=== PATIENT | female | born 1950 | race Caucasian/White ===

== ENCOUNTER 2019-03-19 11:09 | Inpatient (IN) | payer OTHER, MEDICARE ==
[2019-03-19] MEDS ORDERED: SODIUM CHLORIDE IV ONE (11:40)
--- NOTE | 2019-03-19 11:49 | PDOC ---
History of Present Illness - General Chief Complaint: Pain Stated Complaint: ABD PAIN Time Seen by Provider: 03/19/19 11:40 History Source: Patient Exam Limitations: No Limitations - History of Present Illness Initial Comments: 69 yo F w a pmh of HTN, HCL, lower extremity paraplegia presents to the ER because her stage 4 ulcer has been hurting her very much and is getting worse. The patient reports that she fell down from the stairs last year in [facility] and has ever since been paralyzed from the waste down. She has a chronic stage 4 ulcer which she receives treatment for but the nurse at her wound care center stated that it started looking worse had abnormal discoloration and said she should come to the hospital to get a professional doctor to evaluate her ulcer. She denies systemic symptoms such as fevers, chills, sweats, or fatigue. She states she feels like her heart is beating faster than normal but otherwise has no complaints. PCP: Law Jeter PSH: Spinal surgery at [facility] Sep 2018 Allergies: NKA, NKDA Social Hx: Denies smoking, drinking, or other substance usage. Past History - Past Medical History Allergies/Adverse Reactions: Allergies Allergy/AdvReac Type Severity Reaction Status Date / Time No Known Allergies Allergy Verified 03/19/19 11:31 Home Medications: Ambulatory Orders Aspirin [ASA -] 325 mg PO DAILY 03/19/19 Atorvastatin Ca [Lipitor] 20 mg PO HS 03/19/19 Baclofen [Lioresal -] 10 mg PO TID 03/19/19 Metoprolol Succinate [Toprol Xl] 25 mg PO DAILY 03/19/19 Multivitamin [Multiple Vitamins] 1 each PO DAILY 03/19/19 Tizanidine HCl [Zanaflex] 0.5 mg PO HS 03/19/19 COPD: No HTN: Yes Hypercholesterolemia: Yes - Surgical History Neurologic Surgery: Yes (vertebrel fx with repair 2017) - Suicide/Smoking/Psychosocial Hx Smoking History: Former smoker Have you smoked in the past 12 months: No Information on smoking cessation initiated: No Hx Alcohol Use: No Drug/Substance Use Hx: No Review of Systems - Review of Systems Able to Perform ROS?: Yes Comments:: CONSTITUTIONAL: Absent: fever, no chills, no fatigue EYES: Absent: visual changes ENT: Absent: ear pain, no sore throat CARDIOVASCULAR: Absent: chest pain, no palpitations RESPIRATORY: Absent: cough, no SOB GI: Absent: abdominal pain, no nausea, no vomiting, no constipation, no diarrhea GENITOURINARY: Absent: dysuria, no frequency, no hematuria MUSKULOSKELETAL: Present: Back pain Absent: no arthralgia, no myalgia SKIN: Absent: rash NEURO: Absent: headache *Physical Exam - Vital Signs Last Vital Signs Temp Pulse Resp BP Pulse Ox 97.8 F 134 H 20 143/76 98 03/19/19 11:19 03/19/19 11:19 03/19/19 11:19 03/19/19 11:03/19/19 11:19 - Physical Exam Comments: SACRAL ULCER: 6x8, there are gangrenous foci, the bone is involved, suggestive of osteo. GENERAL: Well-appearing, well-nourished. Mild distress. HEENT: Normocephalic, atraumatic. PERRL, EOM intact. CARDIOVASCULAR: Tachycardic rate. Normal S1, S2. Regular rhythm. PULMONARY: No evidence of respiratory distress. Lungs clear to auscultation bilaterally. No wheezing, rales or rhonchi. ABDOMEN: Soft, non-distended, non-tender. EXTREMITIES: Normal ROM in upper extremities. Lower extremities are paralyzed. SKIN: Warm, dry. NEUROLOGICAL: No focal neurological deficits other than lower leg paraplegia ED Treatment Course - LABORATORY CBC & Chemistry Diagram: 03/19/19 12:00 03/19/19 12:00 - RADIOLOGY Radiology Studies Ordered: Category Date Time Status CHEST X-RAY PORTABLE* [RAD] Stat Radiology 03/19/19 11:41 Ordered Medical Decision Making - Medical Decision Making 69 yo F w a pmh of HTN, HCL, lower extremity paraplegia presents to the ER because her stage 4 ulcer has been hurting her very much and is getting worse. The patient reports that she fell down from the stairs last year in [facility] and has ever since been paralyzed from the waste down. She has a chronic stage 4 ulcer which she receives treatment for but the nurse at her wound care center stated that it started looking worse had abnormal discoloration and said she should come to the hospital to get a professional doctor to evaluate her ulcer. She denies systemic symptoms such as fevers, chills, sweats, or fatigue. She states she feels like her heart is beating faster than normal but otherwise has no complaints. VS: Tachycardic, hypotensive DDx IBNLT: Sepsis from sacral ulcer Plan: Sepctic workup, IV hydration, Pelvis CT, Abx, Admit vascular consult. - Patient's Urine shows UTI - Patient is getting Vanc/Zosyn Pelvis CT shows osteomyelitis - Will admit to hospital for further care. *DC/Admit/Observation/Transfer Diagnosis at time of Disposition: Sacral decubitus ulcer, stage IV, UTI (urinary tract infection), Osteomyelitis - Discharge Dispostion Condition at time of disposition: Stable Decision to Admit order: Yes - Referrals Referrals: Law Jeter [Primary Care Provider] - - Patient Instructions - Post Discharge Activity
[2019-03-19] MEDS ORDERED: VANCOMYCIN 1,000 MG in DEXTROSE 5%-WATER - 250 ML IVPB ONE (12:03)
[2019-03-19] MEDS ORDERED: PIPERACILLIN/TAZOB 4.5 GM 4.5 GM in DEXTROSE 5%-WATER 100 ML IVPB ONE (12:04)
[2019-03-19 12:08] LABS: BASO % 0.9 % (0-2.0); EOS % 3.3 % (0-4.5); HEMATOCRIT 30.8 % (32.4-45.2); HEMOGLOBIN 9.9 GM/dL (10.7-15.3); LYMPH % 13.6 % (8-40); MCH 25.2 pg (25.7-33.7); MCHC 32.1 g/dl (32.0-36.0); MEAN CELL VOLUME 78.3 fl (80-96); MEAN PLT VOLUME 7.8 fl (7.5-11.1); MONO % 8.9 % (3.8-10.2); NEUT % 73.3 % (42.8-82.8); PLATELET COUNT 576 K/MM3 (134-434); RBC 3.93 M/mm3 (3.60-5.2); RDW 16.7 % (11.6-15.6); WHITE BLOOD COUNT 13.4 K/mm3 (4.0-10.0)
[2019-03-19] MEDS ORDERED: VANCOMYCIN 1 GRAM (PRE-DOCKED) 1,000 MG/250 ML BAG IVPB ONE (12:08)
[2019-03-19] MEDS ORDERED: PIPERACILLIN/TAZOB 4.5 GM 4.5 GM/100 ML BAG IVPB ONE (12:08)
[2019-03-19 12:20] LABS: EPI CELLS 5.5 /HPF (0-5/HPF); URINE APPEARANCE TURBID; URINE BACTERIA >9000 /hpf (NEGATIVE); URINE BILIRUBIN NEGATIVE (NEGATIVE); URINE CASTS 40 /lpf (0-8); URINE COLOR YELLOW; URINE GLUCOSE (UA) NEGATIVE (NEGATIVE); URINE KETONE NEGATIVE (NEGATIVE); URINE LEUK ESTERASE 3+ (NEGATIVE); URINE NITRITE POSITIVE (NEGATIVE); URINE PROTEIN 2+ (NEGATIVE); URINE WBC 1292 /hpf (0-5)
[2019-03-19 12:28] LABS: INR 1.17 (0.83-1.09); PROTHROMBIN TIME (PATIENT) 13.8 SEC (9.7-13.0)
[2019-03-19 12:35] LABS: ALBUMIN 2.3 g/dl (3.4-5.0); ALK PHOS 101 U/L (45-117); ANION GAP 6 MMOL/L (8-16); BILIRUBIN,TOTAL 0.4 mg/dL (0.2-1); BLOOD UREA NITROGEN 13 mg/dL (7-18); CALCIUM 9.6 mg/dL (8.5-10.1); CHLORIDE 102 mmol/L (98-107); CO2 28 mmol/L (21-32); CREATININE 0.2 mg/dL (0.55-1.3); GLUCOSE,RANDOM 101 mg/dL (74-106); POTASSIUM 3.7 mmol/L (3.5-5.1); SGOT/AST 16 U/L (15-37); SGPT/ALT 20 U/L (13-61); SODIUM 136 mmol/L (136-145)
[2019-03-19 12:47] LABS: URINE RBC 5 /hpf (0-4)
[2019-03-19 12:48] LABS: YEAST NONE SEEN (NEGATIVE)
--- NOTE | 2019-03-19 14:16 | PDOC ---
Documentation entered by Sukhdeep Vyas SCRIBE, acting as scribe for Rosario Mueller MD. Rosario Mueller MD: This documentation has been prepared by the Asael luna Nirvannie, SCRIBE, under my direction and personally reviewed by me in its entirety. I confirm that the documentation accurately reflects all work, treatment, procedures, and medical decision making performed by me. Attending Attestation - Resident Resident Name: Grzegorz Montague - ED Attending Attestation I have performed the following: I have examined & evaluated the patient, The case was reviewed & discussed with the resident, I agree w/resident's findings & plan - HPI HPI: 03/19/19 13:36 The patient is a 69 year old female, with a significant past medical history of HTN, HLD, lower extremity paraplegia, who presents to the emergency department with, a worsening sacral ulcer. As per patient and son at bedside, her wound has been treated at 3 facilities since Sep 2018. She notes significant pain to her ulcer, prompting her arrival to the ED. She denies any fevers, chills, chest pain, or shortness of breath. Allergies: NKDA Primary Care Physician: Dr. Jeter - Physicial Exam PE: 03/19/19 14:05 GENERAL: The patient is in no acute distress. ENT: Ears normal, nares patent, oropharynx clear without exudates. Moist mucous membranes. NECK: Normal range of motion, supple LUNGS: Breath sounds equal, clear to auscultation bilaterally. No wheezes, and no crackles. HEART: Irregularly irregular, tachycardiac ABDOMEN: Soft, nontender, normoactive bowel sounds. EXTREMITIES: Normal range of motion, no edema. NEUROLOGICAL: Cranial nerves II through XII grossly intact. Normal speech. No focal neurological deficits. SKIN: 03/19/19 14:16 - Medical Decision Making 03/19/19 14:07 Ms Pereira is a 69 yo F presenting for evaluation of a sacral decubitus Pt has been managed in 3 facilities for her sacral decubitus Pt being followed by a visiting nurse who has seen her wound and thinks the wound has worsened No fevers or chills EKG - Afib rate of 134 bpm, axis nml, intervals nml, no st elevation or depressions, (+) artifact 03/19/19 14:15 Laboratory Tests 03/19/19 03/19/19 03/19/19 12:00 12:00 12:00 WBC 13.4 H Hgb 9.9 L Hct 30.8 L Plt Count 576 H INR 1.17 H BUN Creatinine Troponin I Urine Blood 3+ H Urine Nitrite Positive H Ur Leukocyte Esterase 3+ H Urine WBC (Auto) 1292 Urine RBC (Auto) 5 Urine Bacteria (Auto) >9000 03/19/19 03/19/19 12:00 12:00 WBC Hgb Hct Plt Count INR BUN 13 Creatinine 0.2 L Troponin I < 0.02 Urine Blood Urine Nitrite Ur Leukocyte Esterase Urine WBC (Auto) Urine RBC (Auto) Urine Bacteria (Auto) Pt has evidence of UTI AND sacral wound Cultures sent Pt treated with Vanco and Zosyn Will admit to hospitalist service 03/19/19 14:17 CT - findings consistent with acute osteomyelitis of the lower sacrum and coccyx CXR - No acute pathology 03/19/19 14:17
--- NOTE | 2019-03-19 16:04 | HP ---
CHIEF COMPLAINT: sent by nurse for worsening sacral wound PCP: Law Jeter MD HISTORY OF PRESENT ILLNESS: Patient is a 69 year old female with a significant past medical history of hypertension, HLD, bed bound secondary to lower extremity paraplegia T6 injury s /p fall, chronic hicks and chronic sacral wound. She presents to the ER after being advised by her home care nurse that her sacral wound is worsening and now with odor and drainage. Patient also reports worsening pain of this wound. Patient has been bed bound after a traumatic fall last year. Patient denies fevers, chills, sweats, or fatigue. She states she feels like her heart is beating faster than normal but otherwise has no complaints. She denies chest pain, no shortness of breath. She states that she was diagnosed with atrial fibrillation in the past and was on blood thinners. She was then transitioned to ASA 325mg BID and has been taking this medication since. Her secretary is at [facility], but she is unsure of his name. In the ED she was noted to be with afib and RVR 150s. She will be sent to telemonitoring. ER course was notable for: (1) meets sepsis criteria (2) rapid afib with avr (3) pelvic ct with +osteo Recent Travel: PAST MEDICAL HISTORY: PAST SURGICAL HISTORY: Social History: Smoking: Alcohol: Drugs: Family History: Allergies No Known Allergies Allergy (Verified 03/19/19 11:31) HOME MEDICATIONS: Home Medications Medication Instructions Recorded Aspirin [ASA -] 325 mg PO DAILY 03/19/19 Atorvastatin Ca [Lipitor] 20 mg PO HS 03/19/19 Baclofen [Lioresal -] 10 mg PO TID 03/19/19 Metoprolol Succinate [Toprol Xl] 25 mg PO DAILY 03/19/19 Multivitamin [Multiple Vitamins] 1 each PO DAILY 03/19/19 Tizanidine HCl [Zanaflex] 0.5 mg PO HS 03/19/19 PHYSICAL EXAMINATION Vital Signs - 24 hr 03/19/19 03/19/19 03/19/19 11:19 11:21 11:55 Temperature 97.8 F Pulse Rate 134 H Pulse Rate [ 150 H Left Radial] Respiratory 20 20 Rate Blood Pressure 143/76 Blood Pressure 121/90 [Right Arm] O2 Sat by Pulse 98 98 98 Oximetry (%) 03/19/19 03/19/19 12:49 13:19 Temperature Pulse Rate Pulse Rate [ 132 H 131 H Left Radial] Respiratory 20 20 Rate Blood Pressure Blood Pressure 126/94 112/69 [Right Arm] O2 Sat by Pulse 98 98 Oximetry (%) GENERAL: Awake, alert, and fully oriented, in no acute distress. provides a fair history, but forgetful HEAD: Normal with no signs of trauma. EYES: Pupils equal, round and reactive to light, extraocular movements intact, sclera anicteric, conjunctiva clear. No lid lag. EARS, NOSE, THROAT: Ears normal, nares patent, oropharynx clear without exudates. Moist mucous membranes. NECK: Normal range of motion, supple without lymphadenopathy, JVD, or masses. LUNGS: Breath sounds equal, clear to auscultation bilaterally. No wheezes, and no crackles. No accessory muscle use. HEART: irregular rate, afib with rvr ABDOMEN: Soft, nontender, not distended, normoactive bowel sounds MUSCULOSKELETAL: Normal range of motion at all joints. No bony deformities or tenderness. No CVA tenderness. UPPER EXTREMITIES: No clubbing. No peripheral edema. LOWER EXTREMITIES: trace edema bilaterally NEUROLOGICAL: Normal speech. Normal gait. PSYCHIATRIC: Cooperative. Good eye contact. Appropriate mood and affect. SKIN: large unsteageable sacral wound, round, mild odor, discoloration with deep tunneling. wound apx 8cm x 8cm with 4cm depth. exposed muscle and bone. Laboratory Results - last 24 hr 03/19/19 03/19/19 03/19/19 12:00 12:00 12:00 WBC 13.4 H RBC 3.93 Hgb 9.9 L Hct 30.8 L MCV 78.3 L MCH 25.2 L MCHC 32.1 RDW 16.7 H Plt Count 576 H MPV 7.8 Absolute Neuts (auto) 9.8 H Neutrophils % 73.3 Lymphocytes % 13.6 Monocytes % 8.9 Eosinophils % 3.3 Basophils % 0.9 Nucleated RBC % 0 PT with INR 13.80 H INR 1.17 H PTT (Actin FS) 37.0 H Sodium Potassium Chloride Carbon Dioxide Anion Gap BUN Creatinine Creat Clearance w eGFR Random Glucose Lactic Acid Calcium Total Bilirubin AST ALT Alkaline Phosphatase Troponin I Total Protein Albumin Urine Color Yellow Urine Appearance Turbid Urine pH 6.0 Ur Specific [place] 1.021 Urine Protein 2+ H Urine Glucose (UA) Negative Urine Ketones Negative Urine Blood 3+ H Urine Nitrite Positive H Urine Bilirubin Negative Urine Urobilinogen 1.0 Ur Leukocyte Esterase 3+ H Urine WBC (Auto) 1292 Urine RBC (Auto) 5 Urine Casts (Auto) 40 U Pathogenic Cast Auto None seen U Epithel Cells (Auto) 5.5 U Sm Round Cell (Auto) No Result Required. Urine Crystals (Auto) No Result Required. Urine Bacteria (Auto) >9000 Urine Yeast (Auto) None seen Blood Type Antibody Screen 03/19/19 03/19/19 03/19/19 12:00 12:00 12:00 WBC RBC Hgb Hct MCV MCH MCHC RDW Plt Count MPV Absolute Neuts (auto) Neutrophils % Lymphocytes % Monocytes % Eosinophils % Basophils % Nucleated RBC % PT with INR INR PTT (Actin FS) Sodium 136 Potassium 3.7 Chloride 102 Carbon Dioxide 28 Anion Gap 6 L BUN 13 Creatinine 0.2 L Creat Clearance w eGFR 351.16 Random Glucose 101 Lactic Acid Calcium 9.6 Total Bilirubin 0.4 AST 16 ALT 20 Alkaline Phosphatase 101 Troponin I < 0.02 Total Protein 6.0 L Albumin 2.3 L Urine Color Urine Appearance Urine pH Ur Specific [place] Urine Protein Urine Glucose (UA) Urine Ketones Urine Blood Urine Nitrite Urine Bilirubin Urine Urobilinogen Ur Leukocyte Esterase Urine WBC (Auto) Urine RBC (Auto) Urine Casts (Auto) U Pathogenic Cast Auto U Epithel Cells (Auto) U Sm Round Cell (Auto) Urine Crystals (Auto) Urine Bacteria (Auto) Urine Yeast (Auto) Blood Type O NEGATIVE Antibody Screen Negative 03/19/19 12:00 WBC RBC Hgb Hct MCV MCH MCHC RDW Plt Count MPV Absolute Neuts (auto) Neutrophils % Lymphocytes % Monocytes % Eosinophils % Basophils % Nucleated RBC % PT with INR INR PTT (Actin FS) Sodium Potassium Chloride Carbon Dioxide Anion Gap BUN Creatinine Creat Clearance w eGFR Random Glucose Lactic Acid 0.9 Calcium Total Bilirubin AST ALT Alkaline Phosphatase Troponin I Total Protein Albumin Urine Color Urine Appearance Urine pH Ur Specific [place] Urine Protein Urine Glucose (UA) Urine Ketones Urine Blood Urine Nitrite Urine Bilirubin Urine Urobilinogen Ur Leukocyte Esterase Urine WBC (Auto) Urine RBC (Auto) Urine Casts (Auto) U Pathogenic Cast Auto U Epithel Cells (Auto) U Sm Round Cell (Auto) Urine Crystals (Auto) Urine Bacteria (Auto) Urine Yeast (Auto) Blood Type Antibody Screen ASSESSMENT/PLAN: Patient is a 69 year old female with a significant past medical history of hypertension, HLD, bed bound secondary to lower extremity paraplegia T6 injury s /p fall, chronic hicks and chronic sacral wound. She presents to the ER after being advised by her home care nurse that her sacral wound is worsening and now with odor and drainage. Patient also reports worsening pain of this wound. Patient has been bed bound after a traumatic fall last year. Patient denies fevers, chills, sweats, or fatigue. She states she feels like her heart is beating faster than normal but otherwise has no complaints. She denies chest pain, no shortness of breath. She states that she was diagnosed with atrial fibrillation in the past and was on blood thinners. She was then transitioned to ASA 325mg BID and has been taking this medication since. Her secretary is at [facility], but she is unsure of his name. In the ED she was noted to be with afib and RVR 150s. She will be sent to telemonitoring. ID Meets SIRS/sepsis criteria on admission Large sacral wound with odor, drainage, pain. mildly hypotensive with afib RVR Multiple sites of exposed bone of sacrum. Pelvic CT shows acute osteomyelitis. Would consult plastic surgery for possible wound closure, however, with osteo, may need to address the osteo first prior to wound closure. Given Zosyn in the ED. ID consulted for further recommendations Will culture wound, blood and urine cultures pending : Chronic hicks, changed monthly last changed 1 week ago Patient is bed bound and unable to void on her own due to spine trauma and immobility Urine cultures pending UTI per UA Given Zosyn and Vanco in ED Cardiology Afib with RVR Not anticoagulated at home except for ASA 325mg bid. Will give Lovenox 80mg x 1 now and await cardiology recommendations. Rate control with lopressor 4mg push prn Hypertension. monitor BP fen po monitor electrolyes low salt diet prophy lovenox Visit type - Emergency Visit Emergency Visit: Yes ED Registration Date: 03/19/19 Care time: The patient presented to the Emergency Department on the above date and was hospitalized for further evaluation of their emergent condition. - New Patient This patient is new to me today: No - Critical Care Critical Care patient: No
[2019-03-19] MEDS ORDERED: ACETAMINOPHEN 1000 MG/100 ML VIAL (NON FORMULARY) IVPB ONE (17:55)
[2019-03-19] MEDS ORDERED: SODIUM CHLORIDE 1,000 ML IV STA (17:56)
[2019-03-19] MEDS ORDERED: ACETAMINOPHEN INJECTION 100 ML IVPB ONE (17:58)
[2019-03-19] MEDS ORDERED: METOPROLOL TARTRATE 5 MG/5 ML VIAL IVPUSH ONE (19:18)
[2019-03-19] MEDS ORDERED: METOPROLOL TARTRATE 25 MG TABLET (FP) PO ONE (19:19)
[2019-03-19] MEDS ORDERED: METOPROLOL TARTRATE 5 MG/5 ML VIAL ONE (19:46)
[2019-03-19] MEDS ORDERED: METOPROLOL TARTRATE 25 MG TABLET (FP) ONE (19:46)
--- NOTE | 2019-03-19 20:11 | CONSULT ---
Consult Consult Specialty:: General Surgery Referred by:: Genie Vázquez Reason for Consultation:: stage 4 sacral decub with exposed bone - History of Present Illness Chief Complaint: "my wound looked worse today when the VAC nurse came to see it " History of Present Illness: 69yo obese F with HTN, high cholesterol, asthma, sustained a fall down stairs with spinal injury (T5-6 or 6-7, per pt), leaving her incompletely paraplegic with limited motion and decreased sensation below the waist. She had spinal surgery x2, has a chronic indwelling Stewart (last changed last week per pt ), and was treated at a couple of hospitals and then different rehab facilities , most recently [facility] in [place], before being discharged to home 2 weeks ago with VNS and aides. She reports being diagnosed with afib after the injury as well, and was on blood thinners (shots vs pills, alternating at different facilities), until recently at [facility], where she was changed to 2 full-strength aspirin daily. While still in [facility], she developed a sacral decubitus ulcer, which has been treated at the different facilities with either local dressings or VAC dressings (different machines); when she came home , she is now on [employer] VAC these last 2 weeks with changes MWF at home by the nurses. She had been followed by a wound care doctor periodically. She knows the foam is dark, not sure if there is silver in it. She reports some discomfort at the site, but not significant pain. Today, at home, the nurse who changed her VAC dressing had last seen it Friday, and told her it did not look good and they should get her to the hospital, so ambulance was called. In the ER, she has wbc 13, is afebrile, and a moderate-sized open sacral ulcer was noted with exposed bone in the base (stage 4). Labs showed normal renal function, UA suggestive of UTI (vs colonization from Stewart?), normal lactate. HR is high and irregular, EKG showed afib at 134. BP was initially 143/76, then 120s/90s, then 110s/53-69. She got some IV fluid, had blood and urine cultures sent, and a swab of the sacral wound. Surgery was asked to assess. She is seen and examined in ER holding, just before going up to telemetry. She is alert and cooperative, in no acute distress. She reports some feeling in her lower body, and that she can wiggle her toes and bend her knees some. She has some discomfort in sacral area, but no significant pain. She notes that recently the Stewart catheter is sometimes kinked and she has urinated around it at times. She feels like she has a lot of stool to evacuate, but seems unsure if she has recently. Denies F/C, N/V, abdominal pain, recent illness, SOB, chest pain, palpitations or feeling of racing heartbeat. She is able to help a little bit with rolling off her back for exam, but mainly just with her arms, cannot roll her lower body. - History Source History Provided By: Patient, Medical Record Limitations to Obtaining History: No Limitations - Past Medical History Cardio/Vascular: Yes: AFIB (had at time of traumatic fall/spinal injury - was on blood thinners (alternating "stomach injections" and pills) until shortly before leaving [facility] 2 wks ago, when they changed her to 2 x 325mg ASA daily only), HTN, Hyperlipdemia Pulmonary: Yes: Asthma Renal/: Yes: Other (indwelling Stewart - last changed last week per pt) Reproductive: Yes: Postmenopausal ...Para: 0 Musculoskeletal: Yes: Paraplegia (~T6 injury 09/28/18, can wiggle toes/move knees a little but cannot walk, has some sensation) Additional Medical History: stage 4 sacral decubitus - started at [facility] late last year - has been treated at several facilities with different VAC dressings, gauze packing at some facilities, [employer] VAC at home for last 2 weeks with black foam (??silver - pt does not know) - Past Surgical History Additional Surgical History: plastic surgery on eye in 70s after cat bite; spinal surgery x2 related to Oct 04 trauma - fall down stairs/spinal injury - Alcohol/Substance Use Hx Alcohol Use: No History of Substance Use: reports: None - Smoking History Smoking history: Former smoker Have you smoked in the past 12 months: No - Social History Usual Living Arrangement: With Significant Other ADL: Support Services Home Medications - Allergies Allergies/Adverse Reactions: Allergies Allergy/AdvReac Type Severity Reaction Status Date / Time No Known Allergies Allergy Verified 05/03/19 11:31 - Home Medications Home Medications: Ambulatory Orders Aspirin [ASA -] 325 mg PO DAILY 03/19/19 Atorvastatin Ca [Lipitor] 20 mg PO HS 03/19/19 Baclofen [Lioresal -] 10 mg PO TID 03/19/19 Metoprolol Succinate [Toprol Xl] 25 mg PO DAILY 03/19/19 Multivitamin [Multiple Vitamins] 1 each PO DAILY 03/19/19 Tizanidine HCl [Zanaflex] 0.5 mg PO HS 03/19/19 Home Medications (free text): used to use Advair at home bid before the accident ; used nebulizers at recent facilities, but was not sent home on any regular meds for asthma Family Disease History - Family Disease History Family History: Unremarkable (noncontributory) Review of Systems - Review of Systems Constitutional: denies: Chills, Fever Eyes: reports: Other (uses bifocals (not with her); has some crustiness to left eye in last few days). denies: Recent Change in Vision HENT: denies: Difficult Swallowing, Nasal Congestion, Throat Pain Neck: denies: Swollen Glands, Tenderness Cardiovascular: denies: Chest Pain, Palpitations Respiratory: denies: Cough, SOB Gastrointestinal: reports: Constipation (feels full now), Diarrhea (at times). denies: Abdominal Pain, Nausea, Vomiting Genitourinary: reports: Other (chronic Stewart). denies: Burning, Dysuria Musculoskeletal: reports: Back Pain (sacral area uncomfortable when lying on it - not markedly painful). denies: Joint Pain, Muscle Pain Integumentary: reports: Wound (deep open sacral ulcer - see hpi). denies: Rash Neurological: reports: Pre-Existing Deficit (paraplegic). denies: Dizziness, Headache Physical Exam Vital Signs: Vital Signs Temperature 97.9 F 03/19/19 18:00 Pulse Rate 133 H 03/19/19 18:00 Respiratory Rate 18 03/19/19 18:00 Blood Pressure 113/53 L 03/19/19 18:00 O2 Sat by Pulse Oximetry (%) 98 03/19/19 18:00 Vital Signs Period Temp Pulse Resp BP Sys/Piper Pulse Ox Last 24 Hr 97.8 F-97.9 F 131-150 18-20 112-143/53-94 98-98 Constitutional: Yes: No Distress, Calm, Obese Eyes: Yes: Conjunctiva Clear (some crustiness around left eyelid), EOM Intact, Ptosis (L>R). No: Sclera Icterus HENT: Yes: Atraumatic, Normocephalic Neck: Yes: Supple, Trachea Midline Cardiovascular: Yes: Tachycardia (mild), Pulse Irregular Respiratory: Yes: Regular, CTA Bilaterally. No: Wheezes Gastrointestinal: Yes: Soft, Abdomen, Obese. No: Tenderness ...Rectal Exam: Yes: Sphincter Tone Normal, Other (large soft, formed stool in vault) Renal/: Yes: Stewart Present. No: Hematuria Musculoskeletal: No: Joint Stiffness, Joint Swelling Extremities: Yes: Other (padded lower leg/foot braces on bilaterally; pain patches on bilateral knees). No: Cool, Cyanosis Edema: Yes Edema: LLE: 1+, RLE: 1+ Peripheral Pulses WNL: Yes Integumentary: Yes: Pressure Ulcer (sacral ulcer ~8x6cm with depth to eroded sacral and coccygeal exposed bone and mild undermining at edges mostly laterally ; surface tissue is soft, pink in a few areas but dark/brown/black without alyce purulence; some serous weeping and scant serosang from spots to left and right of bony midline, no clear deeper tunneling), Other (surrounding skin at sacral ulcer with mild adhesive irritation, some maceration at wound edges but generally intact). No: Jaundice, Rash Wound/Incision: Yes: Dressing Removed (and clean, dry short length of Kerlix gauze gently packed into wound space, covered with folded ABD pad and tape to hold), Draining (mostly serous), Unapproximated (see above - multiple sites of eroded bone at base in midline (sacrum and coccyx)). No: Dressing Dry and Intact (dressing with serous/serosang drainage on gauze packing in ulcer and overlying gauze, partly open - removed) Neurological: Yes: Alert, Oriented, Pre-Existing Deficit (BLE paresis), Weakness (can help some with rolling by using arms, but BLE have no strength) Psychiatric: Yes: Alert, Oriented Labs: CBC, BMP 03/19/19 12:00 03/19/19 12:00 CMP Sodium 136 mmol/L (136-145) 03/19/19 12:00 Potassium 3.7 mmol/L (3.5-5.1) 03/19/19 12:00 Chloride 102 mmol/L (98-107) 03/19/19 12:00 Carbon Dioxide 28 mmol/L (21-32) 03/19/19 12:00 Anion Gap 6 MMOL/L (8-16) L 03/19/19 12:00 BUN 13 mg/dL (7-18) 03/19/19 12:00 Creatinine 0.2 mg/dL (0.55-1.3) L 03/19/19 12:00 Creat Clearance w eGFR 351.16 (>60) 03/19/19 12:00 Random Glucose 101 mg/dL (74-106) 03/19/19 12:00 Lactic Acid 0.9 mmol/L (0.4-2.0) 03/19/19 12:00 Calcium 9.6 mg/dL (8.5-10.1) 03/19/19 12:00 Total Bilirubin 0.4 mg/dL (0.2-1) 03/19/19 12:00 AST 16 U/L (15-37) 03/19/19 12:00 ALT 20 U/L (13-61) 03/19/19 12:00 Alkaline Phosphatase 101 U/L (45-117) 03/19/19 12:00 Troponin I < 0.02 ng/ml (0.00-0.05) 03/19/19 12:00 Total Protein 6.0 g/dl (6.4-8.2) L 03/19/19 12:00 Albumin 2.3 g/dl (3.4-5.0) L 03/19/19 12:00 INR, PTT INR 1.17 (0.83-1.09) H 03/19/19 12:00 Urine Test Results Urine Color Yellow 03/19/19 12:00 Urine Appearance Turbid 03/19/19 12:00 Urine pH 6.0 (5.0-8.0) 03/19/19 12:00 Ur Specific [place] 1.021 (1.010-1.035) 03/19/19 12:00 Urine Protein 2+ (NEGATIVE) H 03/19/19 12:00 Urine Glucose (UA) Negative (NEGATIVE) 03/19/19 12:00 Urine Ketones Negative (NEGATIVE) 03/19/19 12:00 Urine Blood 3+ (NEGATIVE) H 03/19/19 12:00 Urine Nitrite Positive (NEGATIVE) H 03/19/19 12:00 Urine Bilirubin Negative (NEGATIVE) 03/19/19 12:00 Ur Leukocyte Esterase 3+ (NEGATIVE) H 03/19/19 12:00 urine from chronic indwelling Stewart (changed last week per pt) Imaging - Results Cat Scan: Report Reviewed, Image Reviewed (pelvic CT images reviewed - open sacral wound overlying partially eroded sacral and coccygeal bones, copious stool in rectal vault, + Stewart in bladder) Problem List - Problems (1) Sacral decubitus ulcer, stage IV Assessment/Plan: admitted to medicine present for many months, previously treated with dressing changes and various negative pressure wound therapy units followed by a wound care doctor per pt, last seen by them no more than a couple weeks ago looked worse today to VNS than when she last saw it Friday wound relatively clean but with some surface soft necrotic tissue exposed, eroded bone of sacrum and coccyx with presumed osteomyelitis unclear how long bone has been visible in wound, but bony erosion has likely taken time to occur wound redressed with Kerlix gauze packing for now could use Santyl on wound surface with dry Kerlix gauze packed on top (or Santyl worked into the end of the Kerlix gauze) daily need pressure relief ENTIRELY off midline/wound area preferably position patient up on hip/shoulder, [id number], not on back may also benefit from high-level pressure relief mattress/surface - clinitron bed? recommend plastic surgery consultation given bone in wound with erosion/presumed infection, may need excision of infected bone and reconstructive options for wound closure unclear if colostomy would be necessary ID for antibiotics discussed with eGnie Vázquez Code(s): L89.154 - PRESSURE ULCER OF SACRAL REGION, STAGE 4 (2) Osteomyelitis of vertebra, sacral and sacrococcygeal region Assessment/Plan: see above ID for antibiotics surface culture will not be useful in guiding therapy Code(s): M46.28 - OSTEOMYELITIS OF VERTEBRA, SACRAL AND SACROCOCCYGEAL REGION (3) Urinary tract infection associated with indwelling urethral catheter Assessment/Plan: UA suggestive of UTI complicated, given chronic catheterization consider changing Stewart and resending UA and culture as fresh specimen defer to ID for antibiotics Code(s): T83.511A - I/I REACT D/T INDWELLING URETHRAL CATHETER, INIT; N39.0 - URINARY TRACT INFECTION, SITE NOT SPECIFIED Qualifiers: Encounter type: initial encounter Qualified Code(s): T83.511A - Infection and inflammatory reaction due to indwelling urethral catheter, initial encounter ; N39.0 - Urinary tract infection, site not specified (4) Fecal impaction in rectum Assessment/Plan: small piece of soft, formed stool withdrawn on CHINO recommend senna 2 tabs tonight and again if no BM by morning pt may require manual disimpaction stool is formed and soft - would add motility agent/laxative for bowel regimen, not softeners once stool is evacuated and moving again, consider dulcolax 10mg po qhs and senna 1-2 tabs prn qhs if no BM for 24 hrs Code(s): K56.41 - FECAL IMPACTION (5) Atrial fibrillation Assessment/Plan: telemetry consult cardiology Code(s): I48.91 - UNSPECIFIED ATRIAL FIBRILLATION Qualifiers: Atrial fibrillation type: unspecified Qualified Code(s): I48.91 - Unspecified atrial fibrillation (6) Hypertension Assessment/Plan: continue home metoprolol Code(s): I10 - ESSENTIAL (PRIMARY) HYPERTENSION Qualifiers: Hypertension type: essential hypertension Qualified Code(s): I10 - Essential (primary) hypertension (7) Hypercholesterolemia Assessment/Plan: continue home lipitor Code(s): E78.00 - PURE HYPERCHOLESTEROLEMIA, UNSPECIFIED (8) Asthma Assessment/Plan: consider nebs prn consider pulmonary consult - pt used to be on maintenance meds, stopped sometime before getting home from last rehab? Code(s): J45.909 - UNSPECIFIED ASTHMA, UNCOMPLICATED Qualifiers: Asthma severity: mild Asthma persistence: intermittent Asthma complication type: uncomplicated Qualified Code(s): J45.20 - Mild intermittent asthma, uncomplicated (9) Other obesity due to excess calories Code(s): E66.09 - OTHER OBESITY DUE TO EXCESS CALORIES (10) Paraplegia, incomplete Code(s): G82.22 - PARAPLEGIA, INCOMPLETE
[2019-03-19] MEDS ORDERED: METOPROLOL TARTRATE 5 MG/5 ML VIAL IVPUSH PRN (21:16)
[2019-03-19] MEDS ORDERED: ENOXAPARIN NA (PORCINE) 80 MG/0.8 ML DISP.SYRIN SQ ONE (21:19)
[2019-03-19] MEDS: ATORVASTATIN CA 20 MG TABLET (FP) PO SCH (21:56)
[2019-03-19] MEDS: BACLOFEN 10 MG TABLET (FP) PO SCH (21:56)
[2019-03-19] MEDS ORDERED: SENNOSIDES 8.6MG TABLET (FP) PO ONE (22:00)
[2019-03-20] MEDS: metoPROLOL SUCCINATE 25 MG TAB.SR.24H (FP) PO SCH ×3 (00:35→21:33)
[2019-03-20] MEDS: BACLOFEN 10 MG TABLET (FP) PO SCH ×3 (06:05→21:33)
[2019-03-20 07:47] LABS: INR 1.22 (0.83-1.09); PROTHROMBIN TIME (PATIENT) 14.4 SEC (9.7-13.0)
[2019-03-20 07:48] LABS: BASO % 1.2 % (0-2.0); EOS % 3.7 % (0-4.5); HEMATOCRIT 26.2 % (32.4-45.2); HEMOGLOBIN 8.3 GM/dL (10.7-15.3); LYMPH % 14.7 % (8-40); MCH 24.9 pg (25.7-33.7); MCHC 31.7 g/dl (32.0-36.0); MEAN CELL VOLUME 78.4 fl (80-96); MEAN PLT VOLUME 8.2 fl (7.5-11.1); MONO % 7.2 % (3.8-10.2); NEUT % 73.2 % (42.8-82.8); PLATELET COUNT 545 K/MM3 (134-434); RBC 3.34 M/mm3 (3.60-5.2); RDW 16.9 % (11.6-15.6); WHITE BLOOD COUNT 11.3 K/mm3 (4.0-10.0)
[2019-03-20 07:57] LABS: MAGNESIUM 1.5 mg/dL (1.8-2.4)
[2019-03-20] MEDS ORDERED: MAGNESIUM SULF 50% (8.12 MEQ/2 ML-1 GM VIAL) IVPB ONE (07:59)
--- NOTE | 2019-03-20 08:44 | CON.CARD ---
Consult Consult Specialty:: Cardiology Reason for Consultation:: af rvr - History Source History Provided By: Patient, Medical Record - Past Medical History Cardio/Vascular: Yes: AFIB (had at time of traumatic fall/spinal injury - was on blood thinners (alternating "stomach injections" and pills) until shortly before leaving [facility] 2 wks ago, when they changed her to 2 x 325mg ASA daily only), HTN, Hyperlipdemia Pulmonary: Yes: Asthma Renal/: Yes: Other (indwelling Stewart - last changed last week per pt) Musculoskeletal: Yes: Paraplegia (~T6 injury 09/28/18, can wiggle toes/move knees a little but cannot walk, has some sensation) Additional Medical History: stage 4 sacral decubitus - started at [facility] late last year - has been treated at several facilities with different VAC dressings, gauze packing at some facilities, [employer] VAC at home for last 2 weeks with black foam (??silver - pt does not know) - Past Surgical History Additional Surgical History: plastic surgery on eye in 70s after cat bite; spinal surgery x2 related to Oct 04 trauma - fall down stairs/spinal injury - Alcohol/Substance Use Hx Alcohol Use: No History of Substance Use: reports: None - Smoking History Smoking history: Former smoker Have you smoked in the past 12 months: No - Social History Usual Living Arrangement: With Significant Other ADL: Support Services Home Medications - Allergies Allergies/Adverse Reactions: Allergies Allergy/AdvReac Type Severity Reaction Status Date / Time No Known Allergies Allergy Verified 03/19/19 11:31 - Home Medications Home Medications: Ambulatory Orders Aspirin [ASA -] 325 mg PO DAILY 03/19/19 Atorvastatin Ca [Lipitor] 20 mg PO HS 03/19/19 Baclofen [Lioresal -] 10 mg PO TID 03/19/19 Metoprolol Succinate [Toprol Xl] 25 mg PO DAILY 03/19/19 Multivitamin [Multiple Vitamins] 1 each PO DAILY 03/19/19 Tizanidine HCl [Zanaflex] 0.5 mg PO HS 03/19/19 Review of Systems - Review of Systems Constitutional: reports: No Symptoms Eyes: reports: No Symptoms HENT: reports: No Symptoms Neck: reports: No Symptoms Cardiovascular: reports: No Symptoms Gastrointestinal: reports: No Symptoms Genitourinary: reports: No Symptoms Breasts: reports: No Symptoms Reported Musculoskeletal: reports: No Symptoms Integumentary: reports: No Symptoms Neurological: reports: No Symptoms Endocrine: reports: No Symptoms Hematology/Lymphatic: reports: No Symptoms Psychiatric: reports: No Symptoms Vital Signs: Vital Signs Temperature 98.4 F 03/20/19 02:00 Pulse Rate 136 H 03/20/19 06:07 Respiratory Rate 20 03/20/19 06:00 Blood Pressure 100/58 L 03/20/19 06:07 O2 Sat by Pulse Oximetry (%) 98 03/20/19 06:19 Constitutional: Yes: Well Nourished, No Distress, Calm Eyes: Yes: WNL, Conjunctiva Clear, EOM Intact HENT: Yes: WNL, Atraumatic, Normocephalic Neck: Yes: WNL, Supple, Trachea Midline Respiratory: Yes: WNL, Regular, CTA Bilaterally Gastrointestinal: Yes: WNL, Normal Bowel Sounds Renal/: Yes: WNL Cardiovascular: Yes: WNL, Regular Rate and Rhythm Musculoskeletal: Yes: WNL Extremities: Yes: WNL Integumentary: Yes: WNL Neurological: Yes: WNL, Alert, Oriented ...Motor Strength: WNL Psychiatric: Yes: WNL, Alert, Oriented - Other Data Labs, Other Data: CBC, BMP 03/20/19 05:30 03/19/19 12:00 INR, PTT INR 1.22 (0.83-1.09) H 03/20/19 05:30 Troponin, BNP 03/19/19 03/20/19 12:00 05:30 Troponin I < 0.02 < 0.02 Troponin, BNP 03/19/19 03/20/19 12:00 05:30 Troponin I < 0.02 < 0.02 Laboratory Results - last 24 hr 03/19/19 03/19/19 03/19/19 12:00 12:00 12:00 WBC 13.4 H RBC 3.93 Hgb 9.9 L Hct 30.8 L MCV 78.3 L MCH 25.2 L MCHC 32.1 RDW 16.7 H Plt Count 576 H MPV 7.8 Absolute Neuts (auto) 9.8 H Neutrophils % 73.3 Lymphocytes % 13.6 Monocytes % 8.9 Eosinophils % 3.3 Basophils % 0.9 Nucleated RBC % 0 PT with INR 13.80 H INR 1.17 H PTT (Actin FS) 37.0 H Sodium Potassium Chloride Carbon Dioxide Anion Gap BUN Creatinine Creat Clearance w eGFR Random Glucose Hemoglobin A1c % Lactic Acid Calcium Magnesium Total Bilirubin AST ALT Alkaline Phosphatase Troponin I Total Protein Albumin TSH Urine Color Yellow Urine Appearance Turbid Urine pH 6.0 Ur Specific [place] 1.021 Urine Protein 2+ H Urine Glucose (UA) Negative Urine Ketones Negative Urine Blood 3+ H Urine Nitrite Positive H Urine Bilirubin Negative Urine Urobilinogen 1.0 Ur Leukocyte Esterase 3+ H Urine WBC (Auto) 1292 Urine RBC (Auto) 5 Urine Casts (Auto) 40 U Pathogenic Cast Auto None seen U Epithel Cells (Auto) 5.5 U Sm Round Cell (Auto) No Result Required. Urine Crystals (Auto) No Result Required. Urine Bacteria (Auto) >9000 Urine Yeast (Auto) None seen Blood Type Antibody Screen 03/19/19 03/19/19 03/19/19 12:00 12:00 12:00 WBC RBC Hgb Hct MCV MCH MCHC RDW Plt Count MPV Absolute Neuts (auto) Neutrophils % Lymphocytes % Monocytes % Eosinophils % Basophils % Nucleated RBC % PT with INR INR PTT (Actin FS) Sodium 136 Potassium 3.7 Chloride 102 Carbon Dioxide 28 Anion Gap 6 L BUN 13 Creatinine 0.2 L Creat Clearance w eGFR 351.16 Random Glucose 101 Hemoglobin A1c % Lactic Acid Calcium 9.6 Magnesium Total Bilirubin 0.4 AST 16 ALT 20 Alkaline Phosphatase 101 Troponin I < 0.02 Total Protein 6.0 L Albumin 2.3 L TSH Urine Color Urine Appearance Urine pH Ur Specific [place] Urine Protein Urine Glucose (UA) Urine Ketones Urine Blood Urine Nitrite Urine Bilirubin Urine Urobilinogen Ur Leukocyte Esterase Urine WBC (Auto) Urine RBC (Auto) Urine Casts (Auto) U Pathogenic Cast Auto U Epithel Cells (Auto) U Sm Round Cell (Auto) Urine Crystals (Auto) Urine Bacteria (Auto) Urine Yeast (Auto) Blood Type O NEGATIVE Antibody Screen Negative 03/19/19 03/19/19 03/20/19 12:00 21:30 05:30 WBC RBC Hgb Hct MCV MCH MCHC RDW Plt Count MPV Absolute Neuts (auto) Neutrophils % Lymphocytes % Monocytes % Eosinophils % Basophils % Nucleated RBC % PT with INR INR PTT (Actin FS) Sodium Potassium Chloride Carbon Dioxide Anion Gap BUN Creatinine Creat Clearance w eGFR Random Glucose Hemoglobin A1c % Lactic Acid 0.9 Calcium Magnesium 1.5 L Total Bilirubin AST ALT Alkaline Phosphatase Troponin I < 0.02 Total Protein Albumin TSH 0.61 Urine Color Urine Appearance Urine pH Ur Specific [place] Urine Protein Urine Glucose (UA) Urine Ketones Urine Blood Urine Nitrite Urine Bilirubin Urine Urobilinogen Ur Leukocyte Esterase Urine WBC (Auto) Urine RBC (Auto) Urine Casts (Auto) U Pathogenic Cast Auto U Epithel Cells (Auto) U Sm Round Cell (Auto) Urine Crystals (Auto) Urine Bacteria (Auto) Urine Yeast (Auto) Blood Type O NEGATIVE Antibody Screen 03/20/19 03/20/19 03/20/19 05:30 05:30 05:30 WBC 11.3 H RBC 3.34 L Hgb 8.3 L Hct 26.2 L MCV 78.4 L MCH 24.9 L MCHC 31.7 L RDW 16.9 H Plt Count 545 H MPV 8.2 Absolute Neuts (auto) 8.3 H Neutrophils % 73.2 Lymphocytes % 14.7 Monocytes % 7.2 Eosinophils % 3.7 Basophils % 1.2 Nucleated RBC % 0 PT with INR 14.40 H INR 1.22 H PTT (Actin FS) Sodium Potassium Chloride Carbon Dioxide Anion Gap BUN Creatinine Creat Clearance w eGFR Random Glucose Hemoglobin A1c % 5.2 Lactic Acid Calcium Magnesium Total Bilirubin AST ALT Alkaline Phosphatase Troponin I Total Protein Albumin TSH Urine Color Urine Appearance Urine pH Ur Specific [place] Urine Protein Urine Glucose (UA) Urine Ketones Urine Blood Urine Nitrite Urine Bilirubin Urine Urobilinogen Ur Leukocyte Esterase Urine WBC (Auto) Urine RBC (Auto) Urine Casts (Auto) U Pathogenic Cast Auto U Epithel Cells (Auto) U Sm Round Cell (Auto) Urine Crystals (Auto) Urine Bacteria (Auto) Urine Yeast (Auto) Blood Type Antibody Screen Imaging - Results Chest X-ray: Image Reviewed (no i/e) EKG: Pending Problem List - Problems (1) Asthma Code(s): J45.909 - UNSPECIFIED ASTHMA, UNCOMPLICATED Qualifiers: Asthma severity: mild Asthma persistence: intermittent Asthma complication type: uncomplicated Qualified Code(s): J45.20 - Mild intermittent asthma, uncomplicated (2) Atrial fibrillation Code(s): I48.91 - UNSPECIFIED ATRIAL FIBRILLATION Qualifiers: Atrial fibrillation type: unspecified Qualified Code(s): I48.91 - Unspecified atrial fibrillation (3) Fecal impaction in rectum Code(s): K56.41 - FECAL IMPACTION (4) Hypercholesterolemia Code(s): E78.00 - PURE HYPERCHOLESTEROLEMIA, UNSPECIFIED (5) Hypertension Code(s): I10 - ESSENTIAL (PRIMARY) HYPERTENSION Qualifiers: Hypertension type: essential hypertension Qualified Code(s): I10 - Essential (primary) hypertension (6) Osteomyelitis Code(s): M86.9 - OSTEOMYELITIS, UNSPECIFIED (7) Osteomyelitis of vertebra, sacral and sacrococcygeal region Code(s): M46.28 - OSTEOMYELITIS OF VERTEBRA, SACRAL AND SACROCOCCYGEAL REGION (8) Other obesity due to excess calories Code(s): E66.09 - OTHER OBESITY DUE TO EXCESS CALORIES (9) Paraplegia, incomplete Code(s): G82.22 - PARAPLEGIA, INCOMPLETE (10) Sacral decubitus ulcer, stage IV Code(s): L89.154 - PRESSURE ULCER OF SACRAL REGION, STAGE 4 (11) UTI (urinary tract infection) Code(s): N39.0 - URINARY TRACT INFECTION, SITE NOT SPECIFIED (12) Urinary tract infection associated with indwelling urethral catheter Code(s): T83.511A - I/I REACT D/T INDWELLING URETHRAL CATHETER, INIT; N39.0 - URINARY TRACT INFECTION, SITE NOT SPECIFIED Qualifiers: Encounter type: initial encounter Qualified Code(s): T83.511A - Infection and inflammatory reaction due to indwelling urethral catheter, initial encounter ; N39.0 - Urinary tract infection, site not specified Assessment/Plan imp; AF [id number] score 3 htn hlp paraplegia sacral dec Plan; agree with LMWH 180 mg BID rate control with Metoprolol telemetry ekg ECHO Coverage for dr. Gar
[2019-03-20] MEDS: ENOXAPARIN NA (PORCINE) 80 MG/0.8 ML DISP.SYRIN SQ SCH ×2 (09:39→21:34)
[2019-03-20] MEDS: MULTIVITAMINS (DAILY MVI) TABLET (FP) PO SCH (09:39)
--- NOTE | 2019-03-20 09:39 | PN ---
Physical Exam: SUBJECTIVE: Patient seen and examined. patient sustained an injury to spine s/p fall, went to [facility], deveoped wound, went to [place], then [facility] and eventually [place]. Her sacral wound developed after the fall and progressed. she had a wound vac placed at home and wound vac changed three times per week. She is non ambulatory, gets PT for ROM. OBJECTIVE: will re-measure wound today to determine how deep the tunneling is plastic surgery consulted replete magnesium Vital Signs Period Temp Pulse Resp BP Sys/Piper Pulse Ox Last 24 Hr 97.8 F-98.4 F 115-150 18-22 94-143/50-94 98-98 GENERAL: Awake, alert, and fully oriented, in no acute distress. HEAD: Normal with no signs of trauma. EYES: Pupils equal, round and reactive to light, extraocular movements intact, sclera anicteric, conjunctiva clear. No lid lag. EARS, NOSE, THROAT: Ears normal, nares patent, oropharynx clear without exudates. Moist mucous membranes. NECK: Normal range of motion, supple without lymphadenopathy, JVD, or masses. LUNGS: Breath sounds equal, clear to auscultation bilaterally. No wheezes, and no crackles. No accessory muscle use. HEART: irregular rate, afib with rvr 130s ABDOMEN: Soft, nontender, not distended, normoactive bowel sounds MUSCULOSKELETAL: bed bound from lower ext weakness UPPER EXTREMITIES: No clubbing. No peripheral edema. LOWER EXTREMITIES: trace edema bilaterally NEUROLOGICAL: Normal speech. Normal gait. PSYCHIATRIC: Cooperative. Good eye contact. Appropriate mood and affect. SKIN: large unsteageable sacral wound, round, mild odor, discoloration with deep tunneling. wound apx 8cm x 8cm with 4cm depth?. exposed muscle and bone. will remeasure wound. Laboratory Results - last 24 hr 03/19/19 03/19/19 03/19/19 12:00 12:00 12:00 WBC 13.4 H RBC 3.93 Hgb 9.9 L Hct 30.8 L MCV 78.3 L MCH 25.2 L MCHC 32.1 RDW 16.7 H Plt Count 576 H MPV 7.8 Absolute Neuts (auto) 9.8 H Neutrophils % 73.3 Lymphocytes % 13.6 Monocytes % 8.9 Eosinophils % 3.3 Basophils % 0.9 Nucleated RBC % 0 PT with INR 13.80 H INR 1.17 H PTT (Actin FS) 37.0 H Sodium Potassium Chloride Carbon Dioxide Anion Gap BUN Creatinine Creat Clearance w eGFR Random Glucose Hemoglobin A1c % Lactic Acid Calcium Magnesium Total Bilirubin AST ALT Alkaline Phosphatase Troponin I Total Protein Albumin TSH Urine Color Yellow Urine Appearance Turbid Urine pH 6.0 Ur Specific [place] 1.021 Urine Protein 2+ H Urine Glucose (UA) Negative Urine Ketones Negative Urine Blood 3+ H Urine Nitrite Positive H Urine Bilirubin Negative Urine Urobilinogen 1.0 Ur Leukocyte Esterase 3+ H Urine WBC (Auto) 1292 Urine RBC (Auto) 5 Urine Casts (Auto) 40 U Pathogenic Cast Auto None seen U Epithel Cells (Auto) 5.5 U Sm Round Cell (Auto) No Result Required. Urine Crystals (Auto) No Result Required. Urine Bacteria (Auto) >9000 Urine Yeast (Auto) None seen Blood Type Antibody Screen 03/19/19 03/19/19 03/19/19 12:00 12:00 12:00 WBC RBC Hgb Hct MCV MCH MCHC RDW Plt Count MPV Absolute Neuts (auto) Neutrophils % Lymphocytes % Monocytes % Eosinophils % Basophils % Nucleated RBC % PT with INR INR PTT (Actin FS) Sodium 136 Potassium 3.7 Chloride 102 Carbon Dioxide 28 Anion Gap 6 L BUN 13 Creatinine 0.2 L Creat Clearance w eGFR 351.16 Random Glucose 101 Hemoglobin A1c % Lactic Acid Calcium 9.6 Magnesium Total Bilirubin 0.4 AST 16 ALT 20 Alkaline Phosphatase 101 Troponin I < 0.02 Total Protein 6.0 L Albumin 2.3 L TSH Urine Color Urine Appearance Urine pH Ur Specific [place] Urine Protein Urine Glucose (UA) Urine Ketones Urine Blood Urine Nitrite Urine Bilirubin Urine Urobilinogen Ur Leukocyte Esterase Urine WBC (Auto) Urine RBC (Auto) Urine Casts (Auto) U Pathogenic Cast Auto U Epithel Cells (Auto) U Sm Round Cell (Auto) Urine Crystals (Auto) Urine Bacteria (Auto) Urine Yeast (Auto) Blood Type O NEGATIVE Antibody Screen Negative 03/19/19 03/19/19 03/20/19 12:00 21:30 05:30 WBC RBC Hgb Hct MCV MCH MCHC RDW Plt Count MPV Absolute Neuts (auto) Neutrophils % Lymphocytes % Monocytes % Eosinophils % Basophils % Nucleated RBC % PT with INR INR PTT (Actin FS) Sodium Potassium Chloride Carbon Dioxide Anion Gap BUN Creatinine Creat Clearance w eGFR Random Glucose Hemoglobin A1c % Lactic Acid 0.9 Calcium Magnesium 1.5 L Total Bilirubin AST ALT Alkaline Phosphatase Troponin I < 0.02 Total Protein Albumin TSH 0.61 Urine Color Urine Appearance Urine pH Ur Specific [place] Urine Protein Urine Glucose (UA) Urine Ketones Urine Blood Urine Nitrite Urine Bilirubin Urine Urobilinogen Ur Leukocyte Esterase Urine WBC (Auto) Urine RBC (Auto) Urine Casts (Auto) U Pathogenic Cast Auto U Epithel Cells (Auto) U Sm Round Cell (Auto) Urine Crystals (Auto) Urine Bacteria (Auto) Urine Yeast (Auto) Blood Type O NEGATIVE Antibody Screen 03/20/19 03/20/19 03/20/19 05:30 05:30 05:30 WBC 11.3 H RBC 3.34 L Hgb 8.3 L Hct 26.2 L MCV 78.4 L MCH 24.9 L MCHC 31.7 L RDW 16.9 H Plt Count 545 H MPV 8.2 Absolute Neuts (auto) 8.3 H Neutrophils % 73.2 Lymphocytes % 14.7 Monocytes % 7.2 Eosinophils % 3.7 Basophils % 1.2 Nucleated RBC % 0 PT with INR 14.40 H INR 1.22 H PTT (Actin FS) Sodium Potassium Chloride Carbon Dioxide Anion Gap BUN Creatinine Creat Clearance w eGFR Random Glucose Hemoglobin A1c % 5.2 Lactic Acid Calcium Magnesium Total Bilirubin AST ALT Alkaline Phosphatase Troponin I Total Protein Albumin TSH Urine Color Urine Appearance Urine pH Ur Specific [place] Urine Protein Urine Glucose (UA) Urine Ketones Urine Blood Urine Nitrite Urine Bilirubin Urine Urobilinogen Ur Leukocyte Esterase Urine WBC (Auto) Urine RBC (Auto) Urine Casts (Auto) U Pathogenic Cast Auto U Epithel Cells (Auto) U Sm Round Cell (Auto) Urine Crystals (Auto) Urine Bacteria (Auto) Urine Yeast (Auto) Blood Type Antibody Screen Active Medications Generic Name Dose Route Start Last Admin Trade Name Freq PRN Reason Stop Dose Admin Atorvastatin Calcium 20 mg 03/19/19 22:00 03/19/19 21:56 Lipitor - PO 20 mg HS XAVIER Administration Baclofen 10 mg 03/19/19 22:00 03/20/19 06:05 Lioresal - PO 10 mg TID XAVIER Administration Collagenase 1 applic 03/20/19 10:00 Santyl - TP DAILY [facility] Protocol Enoxaparin Sodium 80 mg 03/20/19 10:00 Lovenox - SQ BID XAVIER Metoprolol Succinate 25 mg 03/19/19 23:15 03/20/19 00:35 Toprol Xl - PO 25 mg BID XAVIER Administration Metoprolol Tartrate 5 mg 03/19/19 21:16 03/20/19 06:07 Lopressor Injection - IVPUSH 5 mg Q4H PRN Administration TACHYCARDIA Multivitamins/Minerals/Vitamin C 1 tab 03/20/19 10:00 Tab-A-Vit - PO DAILY [facility] ASSESSMENT/PLAN: Patient is a 69 year old female with a significant past medical history of hypertension, HLD, bed bound secondary to lower extremity paraplegia T6 injury s /p fall, chronic hikcs and chronic sacral wound. She presents to the ER after being advised by her home care nurse that her sacral wound is worsening and now with odor and drainage, she had a wound vac placed. Patient also reports worsening pain of this wound. Patient has been bed bound after a traumatic fall last year. Patient denies fevers, chills, sweats, or fatigue. She denies chest pain, no shortness of breath. She states that she was diagnosed with atrial fibrillation in the past and was on blood thinners. She was then transitioned to ASA 325mg BID and has been taking this medication since. Her psych rn is at [facility], but she is unsure of his name. In the ED she was noted to be with afib and RVR 150s. ID Meets SIRS/sepsis criteria on admission Large sacral wound with odor, drainage, pain. mildly hypotensive with afib RVR and leukocytosis. Multiple sites of exposed bone of sacrum. Pelvic CT shows acute osteomyelitis. Would consult plastic surgery for possible wound closure, however, with osteo, may need to address the osteo first prior to wound closure. Given Zosyn in the ED. ID consulted for further recommendations culture wound, blood and urine cultures pending Vascular/Surgery: Large sacral wound, [id number], +odor, +sero sang drainage. will remeasure wound today. Plastic surgery consulted for potential closure of wound General surgery following. Patient has been on a wound vac at home : Chronic hicks, changed monthly last changed 1 week ago Patient is bed bound and unable to void on her own due to spine trauma and immobility Urine cultures pending UTI per UA Given Zosyn and Vanco in ED. Cardiology Afib with RVR Not anticoagulated at home except for ASA 325mg bid. Will give Lovenox 80mg BID based on weight. Transition to oral anticoagulation per cardiology. Rate control with lopressor 4mg push prn, and metoprolol 25mg bid. will uptitrate if remains uncontrolled with a close watch of BP. Hypertension. but now hypotensive. monitor BP in the setting of sepsis. on metoprolol 25mg. bid. lopressor pushes q 4 prn fen po monitor electrolytes low salt diet prophy lovenox bid therapeutic protonix will order PT for range of motion Visit type - Emergency Visit Emergency Visit: Yes ED Registration Date: 03/19/19 Care time: The patient presented to the Emergency Department on the above date and was hospitalized for further evaluation of their emergent condition. - New Patient This patient is new to me today: No - Critical Care Critical Care patient: No - Discharge Referral Referred to [facility] No
--- NOTE | 2019-03-20 09:44 | EKG ---
Test Reason : Blood Pressure : / mmHG Vent. Rate : 134 BPM Atrial Rate : 166 BPM P-R Int : 000 ms QRS Dur : 074 ms QT Int : 294 ms P-R-T Axes : 000 067 041 degrees QTc Int : 439 ms POOR DATA QUALITY, INTERPRETATION MAY BE ADVERSELY AFFECTED ATRIAL FIBRILLATION WITH RAPID VENTRICULAR RESPONSE ABNORMAL ECG NO PREVIOUS ECGS AVAILABLE Confirmed by SUSANNA TONEY, GARTH ([id number]) on 03/20/2019 9:43:42 AM Referred By: Confirmed By:GARTH MULLINS MD
[2019-03-20] MEDS ORDERED: ASPIRIN 325 MG TABLET PO SCH (10:00)
[2019-03-20] MEDS ORDERED: metoPROLOL SUCCINATE 25 MG TAB.SR.24H (FP) PO SCH (10:00)
--- NOTE | 2019-03-20 12:13 | CON.ID ---
Consult Consult Specialty:: infectious diseases Referred by:: eduardo Reason for Consultation:: wound infection decubitus ulcer - History of Present Illness Chief Complaint: non healing dcubitus ulcer History of Present Illness: 69 year old female with a significant past medical history of hypertension, HLD , bed bound secondary to lower extremity paraplegia T6 injury s/p fall, chronic hicks and chronic sacral wound. She presents to the ER after being advised by her home care nurse that her sacral wound is worsening and now with odor and drainage. Patient also reports worsening pain of this wound. Patient has been bed bound after a traumatic fall last year. Patient denies fevers, chills, sweats, or fatigue. She states she feels like her heart is beating faster than normal but otherwise has no complaints. She denies chest pain, no shortness of breath. She states that she was diagnosed with atrial fibrillation in the past and was on blood thinners. She was then transitioned to ASA 325mg BID and has been taking this medication since. - History Source History Provided By: Patient Limitations to Obtaining History: No Limitations - Past Medical History Cardio/Vascular: Yes: AFIB (had at time of traumatic fall/spinal injury - was on blood thinners (alternating "stomach injections" and pills) until shortly before leaving [facility] 2 wks ago, when they changed her to 2 x 325mg ASA daily only), HTN, Hyperlipdemia Pulmonary: Yes: Asthma Renal/: Yes: Other (indwelling Hicks - last changed last week per pt) Musculoskeletal: Yes: Paraplegia (~T6 injury 09/28/18, can wiggle toes/move knees a little but cannot walk, has some sensation) Additional Medical History: stage 4 sacral decubitus - started at [facility] late last year - has been treated at several facilities with different VAC dressings, gauze packing at some facilities, [employer] VAC at home for last 2 weeks with black foam (??silver - pt does not know) - Past Surgical History Additional Surgical History: plastic surgery on eye in 70s after cat bite; spinal surgery x2 related to Oct 04 trauma - fall down stairs/spinal injury - Alcohol/Substance Use Hx Alcohol Use: No History of Substance Use: reports: None - Smoking History Smoking history: Former smoker Have you smoked in the past 12 months: No - Social History Usual Living Arrangement: With Significant Other ADL: Support Services Home Medications - Allergies Allergies/Adverse Reactions: Allergies Allergy/AdvReac Type Severity Reaction Status Date / Time No Known Allergies Allergy Verified 03/19/19 11:31 - Home Medications Home Medications: Ambulatory Orders RX: Aspirin [ASA -] 325 mg PO DAILY 03/19/19 RX: Atorvastatin Ca [Lipitor] 20 mg PO HS 03/19/19 RX: Baclofen [Lioresal -] 10 mg PO TID 03/19/19 RX: Metoprolol Succinate [Toprol Xl] 25 mg PO DAILY 03/19/19 RX: Multivitamin [Multiple Vitamins] 1 each PO DAILY 03/19/19 RX: Tizanidine HCl [Zanaflex] 0.5 mg PO HS 03/19/19 RX: Acetaminophen [Tylenol .Regular Strength -] 650 mg PO Q6H PRN tablet RX: Albuterol 0.083% Nebulizer Cailin [Ventolin 0.083% Nebulizer Soln -] 1 amp NEB 0800,1400,2200 amp 03/27/19 RX: Ascorbic Acid [Vitamin C -] 250 mg PO BID tablet 03/27/19 RX: Collagenase Clostridium Hist. [Santyl -] 1 applic TP DAILY tube 03/27/19 RX: Metoprolol Succinate [Toprol XL -] 25 mg PO BID tab.sr.24h 03/27/19 RX: Multivitamins [Multivit ([facility] Formulary)] 1 tab PO DAILY tab 03/27/19 RX: oxyCODONE HCL [Roxicodone -] 5 mg PO Q6H PRN 7 Days #20 tablet MDD 4 Review of Systems - Review of Systems Constitutional: reports: No Symptoms Eyes: reports: No Symptoms HENT: reports: No Symptoms Neck: reports: No Symptoms Cardiovascular: reports: No Symptoms Respiratory: reports: No Symptoms Gastrointestinal: reports: No Symptoms Musculoskeletal: reports: No Symptoms Integumentary: reports: Change in Color, Erythema (buttocks), Lesions Neurological: reports: No Symptoms Endocrine: reports: No Symptoms Hematology/Lymphatic: reports: No Symptoms Psychiatric: reports: No Symptoms Physical Exam Vital Signs: Vital Signs Temperature 98.4 F 03/20/19 10:00 Pulse Rate 115 H 03/20/19 10:00 Respiratory Rate 22 H 03/20/19 10:00 Blood Pressure 91/39 L 03/20/19 10:00 O2 Sat by Pulse Oximetry (%) 98 03/20/19 06:19 Constitutional: Yes: Well Nourished, No Distress, Calm Eyes: Yes: Conjunctiva Clear HENT: Yes: Atraumatic, Normocephalic Neck: Yes: Supple, Trachea Midline Cardiovascular: Yes: S1, S2 Respiratory: Yes: Regular, CTA Bilaterally Gastrointestinal: Yes: Normal Bowel Sounds, Soft ...Rectal Exam: Yes: Other (decubitus ulcer chronic osteo of sacral bone) Musculoskeletal: Yes: WNL Extremities: Yes: WNL Wound/Incision: Yes: Draining, Other (foul smelling,decubitus ulcer) Neurological: Yes: Alert, Oriented Psychiatric: Yes: Alert, Oriented Labs: CBC, BMP 03/20/19 05:30 03/19/19 12:00 Imaging - Results Chest X-ray: Report Reviewed, Image Reviewed Cat Scan: Report Reviewed, Image Reviewed Assessment/Plan Problem List - Problems (1) Sacral decubitus ulcer, stage IV Code(s): L89.154 - PRESSURE ULCER OF SACRAL REGION, STAGE 4 (2) Osteomyelitis of vertebra, sacral and sacrococcygeal region Code(s): M46.28 - OSTEOMYELITIS OF VERTEBRA, SACRAL AND SACROCOCCYGEAL REGION (3) Urinary tract infection associated with indwelling urethral catheter Code(s): T83.511A - I/I REACT D/T INDWELLING URETHRAL CATHETER, INIT; N39.0 - URINARY TRACT INFECTION, SITE NOT SPECIFIED Qualifiers: Encounter type: initial encounter Qualified Code(s): T83.511A - Infection and inflammatory reaction due to indwelling urethral catheter, initial encounter ; N39.0 - Urinary tract infection, site not specified (4) Fecal impaction in rectum Code(s): K56.41 - FECAL IMPACTION (5) Atrial fibrillation Code(s): I48.91 - UNSPECIFIED ATRIAL FIBRILLATION Qualifiers: Atrial fibrillation type: paroxysmal Qualified Code(s): I48.0 - Paroxysmal atrial fibrillation (6) Hypertension Code(s): I10 - ESSENTIAL (PRIMARY) HYPERTENSION Qualifiers: Hypertension type: essential hypertension Qualified Code(s): I10 - Essential (primary) hypertension (7) Hypercholesterolemia Code(s): E78.00 - PURE HYPERCHOLESTEROLEMIA, UNSPECIFIED (8) Asthma Code(s): J45.909 - UNSPECIFIED ASTHMA, UNCOMPLICATED Qualifiers: Asthma severity: mild Asthma persistence: intermittent Asthma complication type: uncomplicated Qualified Code(s): J45.20 - Mild intermittent asthma, uncomplicated (9) Other obesity due to excess calories Code(s): E66.09 - OTHER OBESITY DUE TO EXCESS CALORIES (10) Paraplegia, incomplete Code(s): G82.22 - PARAPLEGIA, INCOMPLETE plan iv abx will need plastics to shahzad at the wound rest as per the team wound care patient doing well
[2019-03-20] MEDS: COLLAGENASE CLOSTRIDIUM HIST. 30 GRAMS TUBE TP SCH (13:00)
--- NOTE | 2019-03-20 13:58 | PN ---
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 She had spinal surgery x2, has a chronic indwelling Stewart (last changed last week per pt ), and was treated at several hospitals and rehab facilities - first [facility], then [facility], and most recently [facility] in [place], before being discharged to home 2 weeks ago with VNS and aides. She reports being diagnosed with afib after the injury as well, and was on blood thinners ( shots vs pills, alternating at different facilities), until recently at [facility], where she was changed to 2 full-strength aspirin daily. While still in [facility], she developed a sacral decubitus ulcer, which has been treated at the different facilities with either local dressings or VAC dressings ( different machines); since she came home, she is now on [employer] VAC these last 2 weeks with changes MWF at home by the nurses. She had been followed by a wound care doctor in each facility, but only VNS are changing VAC at home. She knows the foam is dark, not sure if there is silver in it. She reports some discomfort at the site, but not significant pain. Friday, at home, the nurse who changed her VAC dressing had last seen it Friday and was concerned about necrotic tissue in the wound, told her it did not look good and they should get her to the hospital, so ambulance was called. She has some feeling in her lower body, and she can wiggle her toes and bend her knees a little bit. She has some discomfort in sacral area, but no significant pain. She notes that recently the Stewart catheter is sometimes kinked and she has urinated around it at times. She feels like she has a lot of stool to evacuate, but has not been able to. In the ER, she had wbc 13, was afebrile, and a moderate-sized open sacral ulcer was noted with exposed bone in the base (stage 4). Labs showed normal renal function, UA suggestive of UTI (vs colonization from Stewart?), normal lactate. HR was high and irregular, EKG showed afib at 134. BP was initially 143/76, then 120s/90s, then 110s/53-69. She got some IV fluid, had blood and urine cultures sent, and a swab of the sacral wound. Surgery was asked to assess. CT confirmed erosion of sacral and coccygeal bones in the base of the wound, consistent with likely osteomyelitis, as well as a fecal impaction. She is seen and examined in bed with her partner Brent present, and with LUGGAGE LINER Genie Vázquez and her nurse. She tried to eat some lunch, but is not hungry right now. She did have breakfast , and will eat dinner. - Current Medication List Current Medications: Active Medications Atorvastatin Calcium (Lipitor -) 20 mg PO HS [facility] Last Admin: 03/19/19 21:56 Dose: 20 mg Baclofen (Lioresal -) 10 mg PO TID [facility] Last Admin: 03/20/19 06:05 Dose: 10 mg Bisacodyl (Dulcolax -) 10 mg PO HS [facility] Collagenase (Santyl -) 1 applic TP DAILY [facility]; Protocol Enoxaparin Sodium (Lovenox -) 80 mg SQ BID [facility] Last Admin: 03/20/19 09:39 Dose: 80 mg Piperacillin Sod/Tazobactam (Sod 3.375 gm/ Dextrose) 50 mls @ 100 mls/hr IVPB Q8H-IV [facility]; Protocol Metoprolol Succinate (Toprol Xl -) 25 mg PO BID [facility] Last Admin: 03/20/19 09:41 Dose: Not Given Metoprolol Tartrate (Lopressor Injection -) 5 mg IVPUSH Q4H PRN PRN Reason: TACHYCARDIA Last Admin: 03/20/19 06:07 Dose: 5 mg Multivitamins/Minerals/Vitamin C (Tab-A-Vit -) 1 tab PO DAILY [facility] Last Admin: 03/20/19 09:39 Dose: 1 tab Senna (Senna -) 2 tab PO HS PRN PRN Reason: CONSTIPATION - Objective Vital Signs: Vital Signs Temperature 98.4 F 03/20/19 10:00 Pulse Rate 115 H 03/20/19 10:00 Respiratory Rate 22 H 03/20/19 10:00 Blood Pressure 91/39 L 03/20/19 10:00 O2 Sat by Pulse Oximetry (%) 98 03/20/19 06:19 Vital Signs Period Temp Pulse Resp BP Sys/Piper Pulse Ox Last 24 Hr 97.9 F-98.4 F 115-136 18-22 91-113/39-58 98-98 Constitutional: Yes: No Distress, Calm, Obese Eyes: Yes: Conjunctiva Clear, EOM Intact HENT: Yes: Atraumatic, Normocephalic Respiratory: Yes: On Nasal O2. No: SOB Gastrointestinal: Yes: Soft, Abdomen, Obese. No: Tenderness ...Rectal Exam: Yes: Sphincter Tone Normal, Other (large amount of soft brown stool manually disimpacted from rectum until vault felt empty within reach) Genitourinary: Yes: Stewart Present. No: Hematuria Extremities: Yes: Other (bilat lower leg/foot padded braces on). No: Cool, Cyanosis Integumentary: Yes: Pressure Ulcer (sacral - measured at 6cm craniocaudad, 5.5cm wide, 3cm deep at center; undermined 1.5cm between 10-11:00, 2cm between 1 -3:00), Skin Tear (adhesive irritation around lower margin of sacral ulcer and few scattered skin spots laterally to right superficially eroded from tape). No : Jaundice Wound/Incision: Yes: Dressing Removed (and replaced with collagenase ointment worked into end of Kerlix gauze, tucked first into upper half of wound, then rest of gauze packed into wound until full; covered with folded abd pad and paper tape just to hold), Reddened (locally at inferior margin only, essentially ), Unapproximated (wound tissues mostly pink, with oblaños/blackish soft surface layer of necrotic tissue confined to upper 1/3 of wound; eroded bone present in midline base, larger piece in middle, tiny fragments palpable at upper margin). No: Dressing Dry and Intact (gauze intact over gauze in wound, wet with mostly serous drainage, yellow/robert), Draining (no active drainage or purulence) , Bleeding Neurological: Yes: Alert, Oriented, Pre-Existing Deficit (incomplete paraplegia) Labs: CBC, BMP 03/20/19 05:30 03/19/19 12:00 INR, PTT INR 1.22 (0.83-1.09) H 03/20/19 05:30 Microbiology 03/19/19 12:00 Blood Culture - Preliminary Blood - Peripheral Venous NO GROWTH OBTAINED AFTER 24 HOURS, INCUBATION TO CONTINUE FOR 4 DAYS. 03/19/19 11:53 Blood Culture - Preliminary Blood - Peripheral Venous NO GROWTH OBTAINED AFTER 24 HOURS, INCUBATION TO CONTINUE FOR 4 DAYS. 03/19/19 12:15 Wound Culture - Preliminary Ulcer Staphylococcus Latex Coag Pos Lactose Fermenting Neg Bacilli Group D Strep Or Entero Coccus Pending Organism 03/19/19 12:00 Urine Culture - Preliminary Urine - Urine - Catheterized Lactose Fermenting Neg Bacilli Pending Organism wound culture was essentially a swab of the open wound with NO prep - likely represent skin colonization as much as any wound zakiya await final urine cx results Problem List - Problems (1) Sacral decubitus ulcer, stage IV Assessment/Plan: admitted to medicine ulcer present for many months, previously treated with dressing changes and various negative pressure wound therapy units followed by a wound care doctor only while in facilities wound bed relatively clean but with some surface soft necrotic tissue in upper portion exposed, eroded bone of sacrum and coccyx with presumed osteomyelitis unclear how long bone has been visible in wound, but bony erosion has surely taken time to occur wound redressed with Santyl worked into the end of Kerlix gauze packing - continue daily for now need pressure relief ENTIRELY off midline/wound area preferably position patient up on hip/shoulder, [id number], not on back -- may not be possible secondary to patient tolerance would likely benefit from high-level pressure relief mattress/surface - clinitron bed? plastic surgery consulted given bone in wound with erosion/presumed infection, may need excision of infected bone and reconstructive options for wound closure unclear if colostomy would be necessary antibiotics per ID seen and discussed with Genie Vázquez NP Code(s): L89.154 - PRESSURE ULCER OF SACRAL REGION, STAGE 4 (2) Osteomyelitis of vertebra, sacral and sacrococcygeal region Assessment/Plan: see above antibiotics per ID surface culture will not be useful in guiding therapy may need bone culture and/or excision to clear infection and achieve ultimate closure Code(s): M46.28 - OSTEOMYELITIS OF VERTEBRA, SACRAL AND SACROCOCCYGEAL REGION (3) Urinary tract infection associated with indwelling urethral catheter Assessment/Plan: complicated UTI, given chronic catheterization culture growing 2 organisms consider changing Stewart and resending UA and culture as fresh specimen defer to ID for antibiotics Code(s): T83.511A - I/I REACT D/T INDWELLING URETHRAL CATHETER, INIT; N39.0 - URINARY TRACT INFECTION, SITE NOT SPECIFIED Qualifiers: Encounter type: initial encounter Qualified Code(s): T83.511A - Infection and inflammatory reaction due to indwelling urethral catheter, initial encounter ; N39.0 - Urinary tract infection, site not specified (4) Fecal impaction in rectum Assessment/Plan: manual disimpaction performed with evacuation of large amount of soft brown stool stool is partly formed and soft - would add motility agent/laxative for bowel regimen, not softeners ordered dulcolax 10mg po qhs and senna 2 tabs prn qhs if no BM for 24 hrs follow and record all BMs keep area clean Code(s): K56.41 - FECAL IMPACTION (5) Atrial fibrillation Assessment/Plan: telemetry cardiology consulted on therapeutic lovenox 80mg bid Code(s): I48.91 - UNSPECIFIED ATRIAL FIBRILLATION Qualifiers: Atrial fibrillation type: unspecified Qualified Code(s): I48.91 - Unspecified atrial fibrillation (6) Hypertension Assessment/Plan: continue home metoprolol Code(s): I10 - ESSENTIAL (PRIMARY) HYPERTENSION Qualifiers: Hypertension type: essential hypertension Qualified Code(s): I10 - Essential (primary) hypertension (7) Hypercholesterolemia Assessment/Plan: continue home lipitor Code(s): E78.00 - PURE HYPERCHOLESTEROLEMIA, UNSPECIFIED (8) Asthma Assessment/Plan: consider nebs prn on NC O2 consider pulmonary consult - pt used to be on maintenance meds, stopped sometime before getting home from last rehab? Code(s): J45.909 - UNSPECIFIED ASTHMA, UNCOMPLICATED Qualifiers: Asthma severity: mild Asthma persistence: intermittent Asthma complication type: uncomplicated Qualified Code(s): J45.20 - Mild intermittent asthma, uncomplicated (9) Other obesity due to excess calories Code(s): E66.09 - OTHER OBESITY DUE TO EXCESS CALORIES (10) Paraplegia, incomplete Code(s): G82.22 - PARAPLEGIA, INCOMPLETE
[2019-03-20] MEDS: PIPERACILLIN/TAZOB 3.375 GM 3.375 GM in DEXTROSE 5%-WATER - 50 ML IVPB SCH ×2 (14:45→18:47)
[2019-03-20] MEDS ORDERED: PIPERACILLIN/TAZOBACTAM 3.375 GM VIAL IVPB ONE ×2 (14:53→17:52)
[2019-03-20] MEDS ORDERED: DEXTROSE 5%-WATER - 50 ML IVPB ONE ×2 (14:54→17:52)
--- NOTE | 2019-03-20 16:33 | EKG ---
Test Reason : Blood Pressure : / mmHG Vent. Rate : 118 BPM Atrial Rate : 129 BPM P-R Int : 000 ms QRS Dur : 088 ms QT Int : 314 ms P-R-T Axes : 000 056 -19 degrees QTc Int : 440 ms ATRIAL FIBRILLATION WITH RAPID VENTRICULAR RESPONSE NONSPECIFIC T WAVE ABNORMALITY ABNORMAL ECG WHEN COMPARED WITH ECG OF 19-MAR-2019 11:26, NO SIGNIFICANT CHANGE WAS FOUND Confirmed by SUSANNA TONEY, GARTH ([id number]) on 03/20/2019 4:33:25 PM Referred By: Oliva MONTOYA Confirmed By:GARTH MULLINS MD
[2019-03-20] MEDS: AMINO ACIDS/PROTEIN HYDROLYS 30 ML LIQUID.PKT PO SCH (18:05)
[2019-03-20] MEDS: ATORVASTATIN CA 20 MG TABLET (FP) PO SCH (21:33)
[2019-03-20] MEDS: BISACODYL 5 MG TABLET.DR (FP) PO SCH (21:33)
[2019-03-21] MEDS ORDERED: PIPERACILLIN/TAZOBACTAM 3.375 GM VIAL IVPB ONE ×3 (01:16→16:44)
[2019-03-21] MEDS ORDERED: DEXTROSE 5%-WATER - 50 ML IVPB ONE ×3 (01:16→16:44)
[2019-03-21] MEDS: PIPERACILLIN/TAZOB 3.375 GM 3.375 GM in DEXTROSE 5%-WATER - 50 ML IVPB SCH ×3 (03:23→17:20)
[2019-03-21] MEDS: BACLOFEN 10 MG TABLET (FP) PO SCH ×3 (06:02→22:12)
--- NOTE | 2019-03-21 09:11 | PN ---
Progress Note, Physician History of Present Illness: Cardio/Vascular: Yes: AFIB (had at time of traumatic fall/spinal injury - was on blood thinners (alternating "stomach injections" and pills) until shortly before leaving [facility] 2 wks ago, when they changed her to 2 x 325mg ASA daily only), HTN, Hyperlipdemia Pulmonary: Yes: Asthma Renal/: Yes: Other (indwelling Stewart - last changed last week per pt) Musculoskeletal: Yes: Paraplegia (~T6 injury 09/28/18, can wiggle toes/move knees a little but cannot walk, has some sensation) Additional Medical History: stage 4 sacral decubitus - started at [facility] late last year - has been treated at several facilities with different VAC dressings, gauze packing at some facilities, [facility] VAC at home for last 2 weeks with black foam (??silver - pt does not know) - Current Medication List Current Medications: Active Medications Amino Acids (Prosource No Carb Liquid Pkt) 30 ml PO BID@0800,1730 [facility] Last Admin: 03/20/19 18:05 Dose: 30 ml Atorvastatin Calcium (Lipitor -) 20 mg PO [facility] Last Admin: 03/20/19 21:33 Dose: 20 mg Baclofen (Lioresal -) 10 mg PO TID [facility] Last Admin: 03/21/19 06:02 Dose: 10 mg Bisacodyl (Dulcolax -) 10 mg PO HS [facility] Last Admin: 03/20/19 21:33 Dose: 10 mg Collagenase (Santyl -) 1 applic TP DAILY [facility]; Protocol Last Admin: 03/20/19 13:00 Dose: 1 applic Enoxaparin Sodium (Lovenox -) 80 mg SQ BID [facility] Last Admin: 03/20/19 21:34 Dose: 80 mg Piperacillin Sod/Tazobactam (Sod 3.375 gm/ Dextrose) 50 mls @ 100 mls/hr IVPB Q8H-IV [facility]; Protocol Last Admin: 03/21/19 03:23 Dose: 100 mls/hr Metoprolol Succinate (Toprol Xl -) 25 mg PO BID [facility] Last Admin: 03/20/19 21:33 Dose: 25 mg Metoprolol Tartrate (Lopressor Injection -) 5 mg IVPUSH Q4H PRN PRN Reason: TACHYCARDIA Last Admin: 03/20/19 06:07 Dose: 5 mg Multivitamins/Minerals/Vitamin C (Tab-A-Vit -) 1 tab PO DAILY [facility] Last Admin: 03/20/19 09:39 Dose: 1 tab Senna (Senna -) 2 tab PO HS PRN PRN Reason: CONSTIPATION - Objective Vital Signs: Vital Signs Temperature 98.3 F 03/21/19 06:00 Pulse Rate 112 H 03/21/19 06:00 Respiratory Rate 18 03/21/19 06:00 Blood Pressure 100/64 03/21/19 06:00 O2 Sat by Pulse Oximetry (%) 96 03/20/19 21:00 Eyes: Yes: WNL, Conjunctiva Clear, EOM Intact HENT: Yes: WNL, Atraumatic, Normocephalic Neck: Yes: WNL, Supple, Trachea Midline Cardiovascular: Yes: Pulse Irregular, S1, S2 Respiratory: Yes: WNL, Regular, CTA Bilaterally Gastrointestinal: Yes: WNL, Normal Bowel Sounds Genitourinary: Yes: WNL Musculoskeletal: Yes: WNL Extremities: Yes: WNL Edema: No Integumentary: Yes: WNL Neurological: Yes: WNL, Alert, Oriented ...Motor Strength: WNL Psychiatric: Yes: WNL Labs: CBC, BMP 03/20/19 05:30 03/19/19 12:00 INR, PTT INR 1.22 (0.83-1.09) H 03/20/19 05:30 Problem List - Problems (1) Asthma Code(s): J45.909 - UNSPECIFIED ASTHMA, UNCOMPLICATED Qualifiers: Asthma severity: mild Asthma persistence: intermittent Asthma complication type: uncomplicated Qualified Code(s): J45.20 - Mild intermittent asthma, uncomplicated (2) Atrial fibrillation Code(s): I48.91 - UNSPECIFIED ATRIAL FIBRILLATION Qualifiers: Atrial fibrillation type: unspecified Qualified Code(s): I48.91 - Unspecified atrial fibrillation (3) Fecal impaction in rectum Code(s): K56.41 - FECAL IMPACTION (4) Hypercholesterolemia Code(s): E78.00 - PURE HYPERCHOLESTEROLEMIA, UNSPECIFIED (5) Hypertension Code(s): I10 - ESSENTIAL (PRIMARY) HYPERTENSION Qualifiers: Hypertension type: essential hypertension Qualified Code(s): I10 - Essential (primary) hypertension (6) Osteomyelitis Code(s): M86.9 - OSTEOMYELITIS, UNSPECIFIED (7) Osteomyelitis of vertebra, sacral and sacrococcygeal region Code(s): M46.28 - OSTEOMYELITIS OF VERTEBRA, SACRAL AND SACROCOCCYGEAL REGION (8) Other obesity due to excess calories Code(s): E66.09 - OTHER OBESITY DUE TO EXCESS CALORIES (9) Paraplegia, incomplete Code(s): G82.22 - PARAPLEGIA, INCOMPLETE (10) Sacral decubitus ulcer, stage IV Code(s): L89.154 - PRESSURE ULCER OF SACRAL REGION, STAGE 4 (11) UTI (urinary tract infection) Code(s): N39.0 - URINARY TRACT INFECTION, SITE NOT SPECIFIED (12) Urinary tract infection associated with indwelling urethral catheter Code(s): T83.511A - I/I REACT D/T INDWELLING URETHRAL CATHETER, INIT; N39.0 - URINARY TRACT INFECTION, SITE NOT SPECIFIED Qualifiers: Encounter type: initial encounter Qualified Code(s): T83.511A - Infection and inflammatory reaction due to indwelling urethral catheter, initial encounter ; N39.0 - Urinary tract infection, site not specified Assessment/Plan imp; sacral dec with possible ostio AF [id number] score 3 htn hlp paraplegia s/p fall Plan; agree with LMWH 80 mg BID - may need surgical debridement Plastic surgery consultation pending. rate control with Metoprolol telemetry ekg ECHO Coverage for dr. Gar
[2019-03-21] MEDS: AMINO ACIDS/PROTEIN HYDROLYS 30 ML LIQUID.PKT PO SCH ×2 (09:40→17:20)
[2019-03-21] MEDS: ENOXAPARIN NA (PORCINE) 80 MG/0.8 ML DISP.SYRIN SQ SCH (09:40)
[2019-03-21] MEDS: MULTIVITAMINS (DAILY MVI) TABLET (FP) PO SCH (09:41)
[2019-03-21] MEDS: metoPROLOL SUCCINATE 25 MG TAB.SR.24H (FP) PO SCH ×2 (09:41→22:12)
[2019-03-21] MEDS: COLLAGENASE CLOSTRIDIUM HIST. 30 GRAMS TUBE TP SCH (09:41)
[2019-03-21 10:06] LABS: BASO % 1.5 % (0-2.0); EOS % 4.2 % (0-4.5); HEMATOCRIT 23.9 % (32.4-45.2); HEMOGLOBIN 7.8 GM/dL (10.7-15.3); LYMPH % 16.8 % (8-40); MCH 25.6 pg (25.7-33.7); MCHC 32.8 g/dl (32.0-36.0); MEAN PLT VOLUME 7.6 fl (7.5-11.1); MONO % 8.6 % (3.8-10.2); NEUT % 68.9 % (42.8-82.8); PLATELET COUNT 489 K/MM3 (134-434); RBC 3.07 M/mm3 (3.60-5.2); RDW 17.1 % (11.6-15.6); WHITE BLOOD COUNT 10.1 K/mm3 (4.0-10.0)
[2019-03-21 11:24] LABS: ALK PHOS 75 U/L (45-117); ANION GAP 8 MMOL/L (8-16); BILIRUBIN,TOTAL 0.2 mg/dL (0.2-1); BLOOD UREA NITROGEN 11 mg/dL (7-18); CALCIUM 8.5 mg/dL (8.5-10.1); CHLORIDE 106 mmol/L (98-107); CO2 25 mmol/L (21-32); CREATININE 0.4 mg/dL (0.55-1.3); GLUCOSE,RANDOM 115 mg/dL (74-106); MAGNESIUM 1.9 mg/dL (1.8-2.4); POTASSIUM 3.1 mmol/L (3.5-5.1); SGOT/AST 20 U/L (15-37); SGPT/ALT 22 U/L (13-61); SODIUM 138 mmol/L (136-145); TOT PROT 5.3 g/dl (6.4-8.2)
--- NOTE | 2019-03-21 11:55 | PN ---
Progress Note, Physician History of Present Illness: stable wound looked at clean surrounding - Current Medication List Current Medications: Active Medications Amino Acids (Prosource No Carb Liquid Pkt) 30 ml PO BID@0800,1730 [facility] Last Admin: 03/21/19 09:40 Dose: 30 ml Atorvastatin Calcium (Lipitor -) 20 mg PO HS [facility] Last Admin: 03/20/19 21:33 Dose: 20 mg Baclofen (Lioresal -) 10 mg PO TID [facility] Last Admin: 03/21/19 06:02 Dose: 10 mg Bisacodyl (Dulcolax -) 10 mg PO HS [facility] Last Admin: 03/20/19 21:33 Dose: 10 mg Collagenase (Santyl -) 1 applic TP DAILY [facility]; Protocol Last Admin: 03/21/19 09:41 Dose: 1 applic Enoxaparin Sodium (Lovenox -) 90 mg SQ BID [facility] Piperacillin Sod/Tazobactam (Sod 3.375 gm/ Dextrose) 50 mls @ 100 mls/hr IVPB Q8H-IV [facility]; Protocol Last Admin: 03/21/19 09:40 Dose: 100 mls/hr Metoprolol Succinate (Toprol Xl -) 25 mg PO BID [facility] Last Admin: 03/21/19 09:41 Dose: 25 mg Metoprolol Tartrate (Lopressor Injection -) 5 mg IVPUSH Q4H PRN PRN Reason: TACHYCARDIA Last Admin: 03/20/19 06:07 Dose: 5 mg Multivitamins/Minerals/Vitamin C (Tab-A-Vit -) 1 tab PO DAILY [facility] Last Admin: 03/21/19 09:41 Dose: 1 tab Potassium Chloride (K-Dur -) 40 meq PO ONCE ONE Stop: 03/21/19 11:29 Senna (Senna -) 2 tab PO HS PRN PRN Reason: CONSTIPATION - Objective Vital Signs: Vital Signs Temperature 98.3 F 03/21/19 06:00 Pulse Rate 112 H 03/21/19 06:00 Respiratory Rate 18 03/21/19 06:00 Blood Pressure 100/64 03/21/19 06:00 O2 Sat by Pulse Oximetry (%) 96 03/20/19 21:00 Constitutional: Yes: No Distress, Calm Cardiovascular: Yes: Regular Rate and Rhythm Respiratory: Yes: Regular, CTA Bilaterally Gastrointestinal: Yes: Normal Bowel Sounds, Soft Musculoskeletal: Yes: WNL Extremities: Yes: Other Wound/Incision: Yes: Dressing Dry and Intact Neurological: Yes: Alert, Oriented Psychiatric: Yes: Alert, Oriented Labs: CBC, BMP 03/21/19 09:53 03/21/19 09:53 INR, PTT INR 1.22 (0.83-1.09) H 03/20/19 05:30 Assessment/Plan Problem List - Problems (1) Sacral decubitus ulcer, stage IV Code(s): L89.154 - PRESSURE ULCER OF SACRAL REGION, STAGE 4 (2) Osteomyelitis of vertebra, sacral and sacrococcygeal region Code(s): M46.28 - OSTEOMYELITIS OF VERTEBRA, SACRAL AND SACROCOCCYGEAL REGION (3) Urinary tract infection associated with indwelling urethral catheter Code(s): T83.511A - I/I REACT D/T INDWELLING URETHRAL CATHETER, INIT; N39.0 - URINARY TRACT INFECTION, SITE NOT SPECIFIED Qualifiers: Encounter type: initial encounter Qualified Code(s): T83.511A - Infection and inflammatory reaction due to indwelling urethral catheter, initial encounter ; N39.0 - Urinary tract infection, site not specified (4) Fecal impaction in rectum Code(s): K56.41 - FECAL IMPACTION (5) Atrial fibrillation Code(s): I48.91 - UNSPECIFIED ATRIAL FIBRILLATION Qualifiers: Atrial fibrillation type: paroxysmal Qualified Code(s): I48.0 - Paroxysmal atrial fibrillation (6) Hypertension Code(s): I10 - ESSENTIAL (PRIMARY) HYPERTENSION Qualifiers: Hypertension type: essential hypertension Qualified Code(s): I10 - Essential (primary) hypertension (7) Hypercholesterolemia Code(s): E78.00 - PURE HYPERCHOLESTEROLEMIA, UNSPECIFIED (8) Asthma Code(s): J45.909 - UNSPECIFIED ASTHMA, UNCOMPLICATED Qualifiers: Asthma severity: mild Asthma persistence: intermittent Asthma complication type: uncomplicated Qualified Code(s): J45.20 - Mild intermittent asthma, uncomplicated (9) Other obesity due to excess calories Code(s): E66.09 - OTHER OBESITY DUE TO EXCESS CALORIES (10) Paraplegia, incomplete Code(s): G82.22 - PARAPLEGIA, INCOMPLETE plan iv abx plastics surgery on board rest as per the team
[2019-03-21] MEDS: oxyCODONE HCL 5 MG TABLET PO PRN (12:23)
[2019-03-21] MEDS ORDERED: POTASSIUM CHLORIDE TABS 20 MEQ TABLET.ER (FP) PO ONE (12:45)
--- NOTE | 2019-03-21 14:02 | PN ---
Progress Note, Physician History of Present Illness: Pt with chronic stage 4 sacral decubitus with exposed bone, bony erosion on CT consistent with osteomyelitis. Also with catheter-associated UTI, cx growing MSSA and sensitive E. coli. On antibiotics per ID. Pt seen and examined in bed with partner Brent present. Nurse reports having changed her wound dressing before lunch (collagenase and gauze). She had pain which responded well to oxycodone. She also reports having had more than one bowel movement since yesterday's disimpaction. Tolerating diet, not the best appetite at lunchtime, but had good dinner and breakfast. On therapeutic lovenox for afib. - Current Medication List Current Medications: Active Medications Amino Acids (Prosource No Carb Liquid Pkt) 30 ml PO BID@0800,1730 [facility] Last Admin: 03/21/19 09:40 Dose: 30 ml Atorvastatin Calcium (Lipitor -) 20 mg PO [facility] Last Admin: 03/20/19 21:33 Dose: 20 mg Baclofen (Lioresal -) 10 mg PO TID [facility] Last Admin: 03/21/19 06:02 Dose: 10 mg Bisacodyl (Dulcolax -) 10 mg PO [facility] Last Admin: 03/20/19 21:33 Dose: 10 mg Collagenase (Santyl -) 1 applic TP DAILY [facility]; Protocol Last Admin: 03/21/19 09:41 Dose: 1 applic Enoxaparin Sodium (Lovenox -) 90 mg SQ BID [facility] Piperacillin Sod/Tazobactam (Sod 3.375 gm/ Dextrose) 50 mls @ 100 mls/hr IVPB Q8H-IV [facility]; Protocol Last Admin: 03/21/19 09:40 Dose: 100 mls/hr Metoprolol Succinate (Toprol Xl -) 25 mg PO BID [facility] Last Admin: 03/21/19 09:41 Dose: 25 mg Metoprolol Tartrate (Lopressor Injection -) 5 mg IVPUSH Q4H PRN PRN Reason: TACHYCARDIA Last Admin: 03/20/19 06:07 Dose: 5 mg Multivitamins/Minerals/Vitamin C (Tab-A-Vit -) 1 tab PO DAILY [facility] Last Admin: 03/21/19 09:41 Dose: 1 tab Oxycodone HCl (Roxicodone -) 5 mg PO Q6H PRN PRN Reason: PAIN LEVEL 7 - 10 Last Admin: 03/21/19 12:23 Dose: 5 mg Senna (Senna -) 2 tab PO HS PRN PRN Reason: CONSTIPATION - Objective Vital Signs: Vital Signs Temperature 98.9 F 03/21/19 10:00 Pulse Rate 119 H 03/21/19 10:00 Respiratory Rate 18 03/21/19 10:00 Blood Pressure 91/51 L 03/21/19 10:00 O2 Sat by Pulse Oximetry (%) 98 03/21/19 09:00 Constitutional: Yes: No Distress, Calm, Obese Eyes: Yes: Conjunctiva Clear, EOM Intact HENT: Yes: Atraumatic, Normocephalic Gastrointestinal: Yes: Soft, Abdomen, Obese. No: Tenderness ...Rectal Exam: Yes: Deferred Genitourinary: Yes: Stewart Present. No: Hematuria Extremities: Yes: Other (bilat LE padded braces). No: Cool, Cyanosis Integumentary: Yes: Pressure Ulcer (sacral, dressed, not examined). No: Jaundice, Rash Neurological: Yes: Alert, Oriented, Pre-Existing Deficit (paraplegia) Labs: CBC, BMP 03/21/19 09:53 03/21/19 09:53 K repleted with 40meq oral Mg 1.9, up from 1.5 Problem List - Problems (1) Sacral decubitus ulcer, stage IV Assessment/Plan: ulcer present for many months, previously treated with dressing changes and various negative pressure wound therapy units followed by a wound care doctor only while in facilities wound bed relatively clean but with some surface soft necrotic tissue in upper portion exposed, eroded bone of sacrum and coccyx with presumed osteomyelitis unclear how long bone has been visible in wound, but bony erosion has surely taken time to occur dressing done earlier by nurse - not taken down at this time need pressure relief ENTIRELY off midline/wound area preferably position patient up on hip/shoulder, [id number], not on back -- may not be possible secondary to patient tolerance would likely benefit from high-level pressure relief mattress/surface - clinitron bed ordered by primary team plastic surgery to see tomorrow given bone in wound with erosion/osteo, may need excision of infected bone(?) and reconstructive options for wound closure unclear if colostomy would be necessary antibiotics per ID discussed with Genie Vázquez NP Code(s): L89.154 - PRESSURE ULCER OF SACRAL REGION, STAGE 4 (2) Osteomyelitis of vertebra, sacral and sacrococcygeal region Assessment/Plan: see above antibiotics per ID surface culture will not be useful in guiding therapy may need bone culture and/or excision to clear infection and achieve ultimate closure Code(s): M46.28 - OSTEOMYELITIS OF VERTEBRA, SACRAL AND SACROCOCCYGEAL REGION (3) Urinary tract infection associated with indwelling urethral catheter Assessment/Plan: complicated UTI, given chronic catheterization culture growing E. coli and MSSA consider changing Stewart and resending UA and culture as fresh specimen defer to ID for antibiotics Code(s): T83.511A - I/I REACT D/T INDWELLING URETHRAL CATHETER, INIT; N39.0 - URINARY TRACT INFECTION, SITE NOT SPECIFIED Qualifiers: Encounter type: initial encounter Qualified Code(s): T83.511A - Infection and inflammatory reaction due to indwelling urethral catheter, initial encounter ; N39.0 - Urinary tract infection, site not specified (4) Fecal impaction in rectum Assessment/Plan: manually disimpacted with subsequent multiple BMs stool was partly formed and very soft - pt will need motility agent/laxative for bowel regimen, not softeners dulcolax 10mg po qhs and senna 2 tabs prn qhs if no BM for 24 hrs follow and record all BMs keep area clean Code(s): K56.41 - FECAL IMPACTION (5) Atrial fibrillation Assessment/Plan: telemetry cardiology following on therapeutic lovenox 90mg bid Code(s): I48.91 - UNSPECIFIED ATRIAL FIBRILLATION Qualifiers: Atrial fibrillation type: unspecified Qualified Code(s): I48.91 - Unspecified atrial fibrillation (6) Hypertension Assessment/Plan: home metoprolol Code(s): I10 - ESSENTIAL (PRIMARY) HYPERTENSION Qualifiers: Hypertension type: essential hypertension Qualified Code(s): I10 - Essential (primary) hypertension (7) Hypercholesterolemia Assessment/Plan: home lipitor Code(s): E78.00 - PURE HYPERCHOLESTEROLEMIA, UNSPECIFIED (8) Asthma Assessment/Plan: consider nebs prn on NC O2 consider pulmonary consult - pt used to be on maintenance meds, stopped sometime before getting home from last rehab? Code(s): J45.909 - UNSPECIFIED ASTHMA, UNCOMPLICATED Qualifiers: Asthma severity: mild Asthma persistence: intermittent Asthma complication type: uncomplicated Qualified Code(s): J45.20 - Mild intermittent asthma, uncomplicated (9) Other obesity due to excess calories Code(s): E66.09 - OTHER OBESITY DUE TO EXCESS CALORIES (10) Paraplegia, incomplete Code(s): G82.22 - PARAPLEGIA, INCOMPLETE
--- NOTE | 2019-03-21 15:19 | PN ---
Physical Exam: SUBJECTIVE: Patient seen and examined at the bedside. denies shortness of breath or chest pain. denies palpitations. OBJECTIVE: property assessment monitor: afib 1102-120s will have platen press operator evaluate for stage 4 wound will need special mattress for stage 4 wound started on Pro Source BID, will initiate Ensure with protein supplements change hicks catheter as it was not changed in the ED on admission. K repleted Vital Signs Period Temp Pulse Resp BP Sys/Piper Pulse Ox Last 24 Hr 98.2 F-98.9 F 112-119 18-20 91-107/51-64 96-98 GENERAL: Awake, alert, and fully oriented, in no acute distress. HEAD: Normal with no signs of trauma. EYES: Pupils equal, round and reactive to light, extraocular movements intact, sclera anicteric, conjunctiva clear. No lid lag. EARS, NOSE, THROAT: Ears normal, nares patent, oropharynx clear without exudates. Moist mucous membranes. NECK: Normal range of motion, supple without lymphadenopathy, JVD, or masses. LUNGS: Breath sounds equal, clear to auscultation bilaterally. No wheezes, and no crackles. No accessory muscle use. HEART: irregular rate, afib with rvr 110-120s. ABDOMEN: Soft, nontender, not distended, normoactive bowel sounds MUSCULOSKELETAL: bed bound from lower ext weakness UPPER EXTREMITIES: No clubbing. No peripheral edema. LOWER EXTREMITIES: trace edema bilaterally NEUROLOGICAL: Normal speech. Normal gait. PSYCHIATRIC: Cooperative. Good eye contact. Appropriate mood and affect. SKIN: large unsteageable sacral wound, round, mild odor, discoloration with deep tunneling. wound measurements: Circular large Sacral wound: No odor, no drainage, tissue pink, exposed bone and exposed muscles. measured at 6cm x 5.5cm, 3cm deep at center with undermined 1.5cm between 10-11: 00 oclock, 2cm between 1-3 oclock, Laboratory Results - last 24 hr 03/21/19 03/21/19 09:53 09:53 WBC 10.1 H RBC 3.07 L Hgb 7.8 L Hct 23.9 L MCV 78.0 L MCH 25.6 L MCHC 32.8 RDW 17.1 H Plt Count 489 H MPV 7.6 Absolute Neuts (auto) 6.9 Neutrophils % 68.9 Lymphocytes % 16.8 Monocytes % 8.6 Eosinophils % 4.2 Basophils % 1.5 Nucleated RBC % 0 Sodium 138 Potassium 3.1 L Chloride 106 Carbon Dioxide 25 Anion Gap 8 BUN 11 Creatinine 0.4 L Creat Clearance w eGFR 157.80 Random Glucose 115 H Calcium 8.5 Magnesium 1.9 Total Bilirubin 0.2 AST 20 ALT 22 Alkaline Phosphatase 75 Total Protein 5.3 L Albumin 2.0 L Active Medications Generic Name Dose Route Start Last Admin Trade Name Freq PRN Reason Stop Dose Admin Amino Acids 30 ml 03/20/19 17:30 03/21/19 09:40 Prosource No Carb Liquid Pkt PO 30 ml BID@0800,1730 [facility] Administration Atorvastatin Calcium 20 mg 03/19/19 22:00 03/20/19 21:33 Lipitor - PO 20 mg HS [facility] Administration Baclofen 10 mg 03/19/19 22:00 03/21/19 14:03 Lioresal - PO 10 mg TID [facility] Administration Bisacodyl 10 mg 03/20/19 22:00 03/20/19 21:33 Dulcolax - PO 10 mg HS [facility] Administration Collagenase 1 applic 03/20/19 10:00 03/21/19 09:41 Santyl - TP 1 applic DAILY [facility] Administration Protocol Enoxaparin Sodium 90 mg 03/21/19 22:00 Lovenox - SQ BID [facility] Piperacillin Sod/Tazobactam 50 mls @ 100 mls/hr 03/20/19 12:15 03/21/19 09:40 Sod 3.375 gm/ Dextrose IVPB 100 mls/hr Q8H-IV [facility] Administration Protocol Metoprolol Succinate 25 mg 03/19/19 23:15 03/21/19 09:41 Toprol Xl - PO 25 mg BID [facility] Administration Metoprolol Tartrate 5 mg 03/19/19 21:16 03/20/19 06:07 Lopressor Injection - IVPUSH 5 mg Q4H PRN Administration TACHYCARDIA Multivitamins/Minerals/Vitamin C 1 tab 03/20/19 10:00 03/21/19 09:41 Tab-A-Vit - PO 1 tab DAILY [facility] Administration Oxycodone HCl 5 mg 03/21/19 12:15 03/21/19 12:23 Roxicodone - PO 5 mg Q6H PRN Administration PAIN LEVEL 7 - 10 Senna 2 tab 03/21/19 22:00 Senna - PO HS PRN CONSTIPATION ASSESSMENT/PLAN: Patient is a 69 year old female with a significant past medical history of hypertension, HLD, bed bound secondary to lower extremity paraplegia T6 injury s /p fall, chronic hicks and chronic sacral wound. She presents to the ER after being advised by her home care nurse that her sacral wound is worsening and now with odor and drainage, she had a wound vac placed at home. Patient also reports worsening pain of this wound. Patient has been bed bound after a traumatic fall last year. Patient denies fevers, chills, sweats, or fatigue. She denies chest pain, no shortness of breath. She states that she was diagnosed with atrial fibrillation in the past and was on blood thinners with injections (lovenox?). She was then transitioned to ASA 325mg BID and has been taking this medication since. Her paint stockman is at [facility], but she is unsure of his name. In the ED she was noted to be with afib and RVR 150s. ID Meets SIRS/sepsis criteria on admission. She has a large sacral wound with mild odor, drainage and pain. mildly hypotensive with afib RVR and leukocytosis. Multiple sites of exposed bone of sacrum. Pelvic CT shows acute osteomyelitis. Would consult plastic surgery for possible wound closure, however, with osteo, may need to address the osteo first prior to wound closure? On Zosyn per ID. Wound culture poly microbial. UC will be repeated. Vascular/Surgery: Large sacral wound Stage 4 wound. Circular large Sacral wound: No odor, no drainage, tissue pink, exposed bone and exposed muscles. measured at 6cm x 5.5cm, 3cm deep at center with undermined 1.5cm between 10-11: 00 oclock, 2cm between 1-3 oclock, wound dressing with Santyl. Plastic surgery consulted for potential closure of wound Will order: - prosource BID - will need clinitron bed (ordered) - dietary consult, high protein supplements - patient to be turned side to side to avoid further pressure on this wound. General surgery following. Cardiology Afib with RVR Not anticoagulated at home except for ASA 325mg bid. Now on Lovenox 90mg BID dosing based on weight. Transition to oral anticoagulation per cardiology. Rate control with lopressor 4mg push prn, and metoprolol 25mg bid. will uptitrate if remains uncontrolled with a close watch of BP. Hypertension. but now hypotensive. monitor BP in the setting of sepsis. on metoprolol 25mg. bid. lopressor pushes q 4 prn : Chronic hicks for immobility: changed monthly. last changed 1 week ago at home. not changed in the ED. hicks changed today and repeat urine culture and UA. UTI per UA: UC with ecoli and mssa. On Zosyn. Pulmonary: Asthma history Not in acute exacerbation, no wheezing on exam Stopped Advair per her PCP. Will start on duonebs scheduled. If becomes short of breath or starts to wheeze, will consult pulmonary. fen po monitor electrolytes regular diet prophy lovenox bid therapeutic protonix will order PT for range of motion Visit type - Emergency Visit Emergency Visit: Yes ED Registration Date: 03/19/19 Care time: The patient presented to the Emergency Department on the above date and was hospitalized for further evaluation of their emergent condition. - New Patient This patient is new to me today: No - Critical Care Critical Care patient: No - Discharge Referral Referred to [facility] Med [facility].: No
[2019-03-21 16:41] LABS: BASO % 1.2 % (0-2.0); HEMATOCRIT 25.6 % (32.4-45.2); HEMOGLOBIN 8.1 GM/dL (10.7-15.3); LYMPH % 21.6 % (8-40); MCH 25.1 pg (25.7-33.7); MCHC 31.6 g/dl (32.0-36.0); MEAN CELL VOLUME 79.3 fl (80-96); MEAN PLT VOLUME 7.7 fl (7.5-11.1); MONO % 9.6 % (3.8-10.2); NEUT % 61.6 % (42.8-82.8); PLATELET COUNT 535 K/MM3 (134-434); RBC 3.23 M/mm3 (3.60-5.2); RDW 16.8 % (11.6-15.6); WHITE BLOOD COUNT 10.6 K/mm3 (4.0-10.0)
[2019-03-21 16:42] LABS: EPI CELLS 22.9 /HPF (0-5/HPF); PH,URINE 5.5 (5.0-8.0); URINE APPEARANCE CLOUDY; URINE BILIRUBIN NEGATIVE (NEGATIVE); URINE CASTS 33 /lpf (0-8); URINE COLOR YELLOW; URINE GLUCOSE (UA) NEGATIVE (NEGATIVE); URINE KETONE NEGATIVE (NEGATIVE); URINE LEUK ESTERASE 2+ (NEGATIVE); URINE NITRITE NEGATIVE (NEGATIVE); URINE PROTEIN NEGATIVE (NEGATIVE); URINE RBC 3 /hpf (0-4); URINE UROBILINOGEN 0.2 mg/dL (0.2-1.0); URINE WBC 11 /hpf (0-5)
[2019-03-21 16:57] LABS: MAGNESIUM 1.7 mg/dL (1.8-2.4); POTASSIUM 3.8 mmol/L (3.5-5.1)
[2019-03-21] MEDS ORDERED: MAGNESIUM OXIDE 400 MG TABLET (FP) PO ONE (16:58)
[2019-03-21] MEDS: ALBUTEROL SO4 0.083% IH SOL 2.5 MG/3 ML VIAL.NEB. NEB SCH ×2 (17:18→22:46)
[2019-03-21] MEDS: FERROUS SO4 325 MG TABLET (FP) PO SCH (17:20)
[2019-03-21 17:26] LABS: PLATELET ESTIMATE INCREASED
[2019-03-21 17:34] LABS: URINE BACTERIA >100 /hpf (NEGATIVE)
[2019-03-21] MEDS ORDERED: PT OWN MED DRAWER 7, Y5N ONE ×2 (17:38→20:53)
[2019-03-21] MEDS ORDERED: SENNOSIDES 8.6MG TABLET (FP) PO PRN (22:00)
[2019-03-21] MEDS: ASCORBIC ACID 250 MG TABLET (FP) PO SCH (22:12)
[2019-03-21] MEDS: ATORVASTATIN CA 20 MG TABLET (FP) PO SCH (22:12)
[2019-03-21] MEDS: ENOXAPARIN NA (PORCINE) 100 MG/1 ML DISP.SYRIN SQ SCH (22:12)
[2019-03-21] MEDS: BISACODYL 5 MG TABLET.DR (FP) PO SCH (22:12)
[2019-03-22] MEDS ORDERED: PIPERACILLIN/TAZOBACTAM 3.375 GM VIAL IVPB ONE ×3 (02:23→17:50)
[2019-03-22] MEDS ORDERED: DEXTROSE 5%-WATER - 50 ML IVPB ONE ×3 (02:23→17:50)
[2019-03-22] MEDS: PIPERACILLIN/TAZOB 3.375 GM 3.375 GM in DEXTROSE 5%-WATER - 50 ML IVPB SCH ×3 (03:00→18:32)
[2019-03-22 06:53] LABS: BASO % 1.3 % (0-2.0); EOS % 9.3 % (0-4.5); HEMATOCRIT 23.6 % (32.4-45.2); HEMOGLOBIN 7.7 GM/dL (10.7-15.3); LYMPH % 21.6 % (8-40); MCH 25.6 pg (25.7-33.7); MCHC 32.8 g/dl (32.0-36.0); MONO % 8.7 % (3.8-10.2); NEUT % 59.1 % (42.8-82.8); PLATELET COUNT 504 K/MM3 (134-434); RBC 3.03 M/mm3 (3.60-5.2); WHITE BLOOD COUNT 8.1 K/mm3 (4.0-10.0)
[2019-03-22] MEDS: BACLOFEN 10 MG TABLET (FP) PO SCH ×3 (06:58→21:46)
[2019-03-22 07:00] LABS: ALK PHOS 77 U/L (45-117); ANION GAP 6 MMOL/L (8-16); BILIRUBIN,TOTAL 0.3 mg/dL (0.2-1); BLOOD UREA NITROGEN 10 mg/dL (7-18); CALCIUM 8.5 mg/dL (8.5-10.1); CHLORIDE 106 mmol/L (98-107); CO2 26 mmol/L (21-32); CREATININE 0.3 mg/dL (0.55-1.3); GLUCOSE,RANDOM 83 mg/dL (74-106); POTASSIUM 3.7 mmol/L (3.5-5.1); SGOT/AST 22 U/L (15-37); SGPT/ALT 28 U/L (13-61); SODIUM 138 mmol/L (136-145); TOT PROT 5.3 g/dl (6.4-8.2)
[2019-03-22] MEDS: ALBUTEROL SO4 0.083% IH SOL 2.5 MG/3 ML VIAL.NEB. NEB SCH ×3 (07:29→21:02)
--- NOTE | 2019-03-22 10:11 | PN ---
Progress Note, Physician History of Present Illness: Back in NSR. - Current Medication List Current Medications: Active Medications Albuterol Sulfate (Ventolin 0.083% Nebulizer Soln -) 1 amp NEB Q8H [facility] Last Admin: 03/22/19 07:29 Dose: 1 amp Amino Acids (Prosource No Carb Liquid Pkt) 30 ml PO BID@0800,1730 [facility] Last Admin: 03/21/19 17:20 Dose: 30 ml Ascorbic Acid (Vitamin C -) 250 mg PO BID [facility] Last Admin: 03/21/19 22:12 Dose: 250 mg Atorvastatin Calcium (Lipitor -) 20 mg PO HS [facility] Last Admin: 03/21/19 22:12 Dose: 20 mg Baclofen (Lioresal -) 10 mg PO TID [facility] Last Admin: 03/22/19 06:58 Dose: 10 mg Bisacodyl (Dulcolax -) 10 mg PO HS [facility] Last Admin: 03/21/19 22:12 Dose: 10 mg Collagenase (Santyl -) 1 applic TP DAILY [facility]; Protocol Last Admin: 03/21/19 09:41 Dose: 1 applic Enoxaparin Sodium (Lovenox -) 90 mg SQ BID [facility] Last Admin: 03/21/19 22:12 Dose: 90 mg Ferrous Sulfate (Feosol -) 325 mg PO BIDWM [facility] Last Admin: 03/21/19 17:20 Dose: 325 mg Piperacillin Sod/Tazobactam (Sod 3.375 gm/ Dextrose) 50 mls @ 100 mls/hr IVPB Q8H-IV [facility]; Protocol Last Admin: 03/22/19 03:00 Dose: 100 mls/hr Sodium Chloride (Normal Saline -) 1,000 mls @ 100 mls/hr IV ASDIR [facility] Metoprolol Succinate (Toprol Xl -) 25 mg PO BID [facility] Last Admin: 03/21/19 22:12 Dose: 25 mg Metoprolol Tartrate (Lopressor Injection -) 5 mg IVPUSH Q4H PRN PRN Reason: TACHYCARDIA Last Admin: 03/20/19 06:07 Dose: 5 mg Multivitamins/Minerals/Vitamin C (Tab-A-Vit -) 1 tab PO DAILY [facility] Last Admin: 03/21/19 09:41 Dose: 1 tab Oxycodone HCl (Roxicodone -) 5 mg PO Q6H PRN PRN Reason: PAIN LEVEL 7 - 10 Last Admin: 03/21/19 12:23 Dose: 5 mg Senna (Senna -) 2 tab PO HS PRN PRN Reason: CONSTIPATION - Objective Vital Signs: Vital Signs Temperature 97.8 F 03/22/19 06:00 Pulse Rate 110 H 03/22/19 06:00 Respiratory Rate 20 03/22/19 06:00 Blood Pressure 110/68 03/22/19 06:00 O2 Sat by Pulse Oximetry (%) 96 03/21/19 21:00 Constitutional: Yes: No Distress, Calm Neck: Yes: Supple Cardiovascular: Yes: Regular Rate and Rhythm Respiratory: Yes: Regular, CTA Bilaterally Gastrointestinal: Yes: Normal Bowel Sounds, Soft Edema: No Labs: CBC, BMP 03/22/19 05:30 03/22/19 05:30 INR, PTT INR 1.22 (0.83-1.09) H 03/20/19 05:30 - ....Imaging EKG: Report Reviewed (Tele: PAF->SR) Problem List - Problems (1) Atrial fibrillation Code(s): I48.91 - UNSPECIFIED ATRIAL FIBRILLATION Qualifiers: Atrial fibrillation type: paroxysmal Qualified Code(s): I48.0 - Paroxysmal atrial fibrillation (2) Hypercholesterolemia Code(s): E78.00 - PURE HYPERCHOLESTEROLEMIA, UNSPECIFIED (3) Hypertension Code(s): I10 - ESSENTIAL (PRIMARY) HYPERTENSION Qualifiers: Hypertension type: essential hypertension Qualified Code(s): I10 - Essential (primary) hypertension (4) Osteomyelitis of vertebra, sacral and sacrococcygeal region Code(s): M46.28 - OSTEOMYELITIS OF VERTEBRA, SACRAL AND SACROCOCCYGEAL REGION (5) Paraplegia, incomplete Code(s): G82.22 - PARAPLEGIA, INCOMPLETE (6) Sacral decubitus ulcer, stage IV Code(s): L89.154 - PRESSURE ULCER OF SACRAL REGION, STAGE 4 (7) Anemia Code(s): D64.9 - ANEMIA, UNSPECIFIED Qualifiers: Anemia type: unspecified type Qualified Code(s): D64.9 - Anemia, unspecified Assessment/Plan imp: 1. Sacral dec with possible ostio 2. PAF->SR [id number] score 3 3. htn 4. hlp 5. paraplegia s/p fall 6. Anemia Plan; 1. Agree with LMWH 80 mg BID - may need surgical debridement Plastic surgery consultation pending, on empiric abx course. 2. Rate control with Metoprolol 25 bid, Lipitor 20 qhs 3. telemetry monitoring, f/u ECHO
--- NOTE | 2019-03-22 10:40 | ECHO ---
Name: JULIAN ZHENG Exam:Adult Echocardiogram Study Date: 03/22/2019 08:12 AM Age: 69 yrs Reason For Study: ATRIAL FIBRILLATION WITH RVR Height: 62 in Weight: 179 lb BSA: 1.8 m2 MMode/2D Measurements & Calculations IVSd: 0.91 cm Ao root diam: 2.5 cm LVIDd: 4.8 cm LA dimension: 3.8 cm LVIDs: 3.2 cm LVPWd: 0.85 cm EDV(Teich): 107.2 ml LVOT diam: 2.1 cm ESV(Teich): 40.7 ml Doppler Measurements & Calculations MV E max carlin: 97.7 cm/sec Ao V2 max: 168.5 cm/sec MV A max carlin: 29.6 cm/sec Ao max P.4 mmHg MV E/A: 3.3 Ao V2 mean: 132.9 cm/sec MV dec time: 0.16 sec Ao mean P.4 mmHg Ao V2 VTI: 32.3 cm ИРИНА(I,D): 3.2 cm2 ИРИНА(V,D): 3.5 cm2 LV V1 max P.0 mmHg SV(LVOT): 102.1 ml LV V1 mean P.6 mmHg LV V1 max: 165.9 cm/sec LV V1 mean: 107.7 cm/sec LV V1 VTI: 28.4 cm TR max carlin: 253.1 cm/sec Med Peak E' Carlin: 15.0 cm/sec TR max P.7 mmHg Med E/e': 6.5 Lat Peak E' Carlin: 10.0 cm/sec Lat E/e': 9.7 Procedure A complete two-dimensional transthoracic echocardiogram was performed (2D, M-mode, Doppler and color flow Doppler). Left Ventricle The left ventricle is normal in size. Left ventricular systolic function is normal. Ejection Fraction = 60- 65%. No regional wall motion abnormalities noted. Right Ventricle The right ventricle is normal size. The right ventricular systolic function is normal. Atria The left atrial size is normal. Right atrial size is normal. Mitral Valve The mitral valve is normal in structure and function. There is mild mitral regurgitation. Tricuspid Valve The tricuspid valve is normal in structure and function. There is mild tricuspid regurgitation. Pulmo nary artery systolic pressure is at least 32 mmHg assuming RA pressure of 3 mmHg. Aortic Valve There is mild aortic sclerosis.;. No aortic regurgitation is present. Pulmonic Valve The pulmonic valve is not well visualized. Great Vessels The aortic root is normal size. Pericardium/Pleura There is no pericardial effusion. Interpretation Summary The left ventricle is normal in size. Left ventricular systolic function is normal. No regional wall motion abnormalities noted. Ejection Fraction = 60-65%. The right ventricular systolic function is normal. The left atrial size is normal. Right atrial size is normal. There is mild mitral regurgitation. There is mild tricuspid regurgitation. Pulmonary artery systolic pressure is at least 32 mmHg assuming RA pressure of 3 mmHg There is mild aortic sclerosis.; There is no pericardial effusion. Previous study is not available for comparison Twin Doran MD 03/22/2019 10:39 AM
--- NOTE | 2019-03-22 10:44 | PN ---
Physical Exam: SUBJECTIVE: Patient seen and examined at the bedside. OBJECTIVE: Patient is a 69 year old female with a significant past medical history of hypertension, HLD, bed bound secondary to lower extremity paraplegia T6 injury s /p fall, chronic hicks and chronic sacral wound. She presents to the ER after being advised by her home care nurse that her sacral wound is worsening and now with odor and drainage. In the ED a stage 4 pressure wound with erosion and exposure of bone and muscle was seen. She was also noted to be in rapid atrial fibrillation on home ASA 325 BID. She was admitted for sepsis and rapid afib with RVR. Discharge plans are pending at this time. She will need evaluation from Plastic Surgery today to determine wound closure. Vital Signs Period Temp Pulse Resp BP Sys/Piper Pulse Ox Last 24 Hr 97.8 F-98.8 F 104-119 18-20 87-110/53-68 96 GENERAL: Awake, alert, and fully oriented, in no acute distress. HEAD: Normal with no signs of trauma. EYES: Pupils equal, round and reactive to light, extraocular movements intact, sclera anicteric, conjunctiva clear. No lid lag. EARS, NOSE, THROAT: Ears normal, nares patent, oropharynx clear without exudates. Moist mucous membranes. NECK: Normal range of motion, supple without lymphadenopathy, JVD, or masses. LUNGS: Breath sounds equal, clear to auscultation bilaterally. No wheezes, and no crackles. No accessory muscle use. HEART: irregular rate, afib ABDOMEN: Soft, nontender, not distended, normoactive bowel sounds MUSCULOSKELETAL: bed bound from lower ext weakness UPPER EXTREMITIES: No clubbing. No peripheral edema. LOWER EXTREMITIES: trace edema bilaterally NEUROLOGICAL: Normal speech. bed bound PSYCHIATRIC: Cooperative. Good eye contact. Appropriate mood and affect. SKIN: large unsteageable sacral wound, round, mild odor, discoloration with deep tunneling. wound measurements: Circular large Sacral wound: No odor, no drainage, tissue pink, exposed bone and exposed muscles. measured at 6cm x 5.5cm, 3cm deep at center with undermined 1.5cm between 10-11: 00 oclock, 2cm between 1-3 oclock, Laboratory Results - last 24 hr 03/21/19 03/21/19 03/21/19 09:53 15:35 16:30 WBC RBC Hgb Hct MCV MCH MCHC RDW Plt Count MPV Absolute Neuts (auto) Neutrophils % Lymphocytes % Monocytes % Eosinophils % Basophils % Nucleated RBC % Platelet Estimate Platelet Comment Sodium 138 Potassium 3.1 L 3.8 Chloride 106 Carbon Dioxide 25 Anion Gap 8 BUN 11 Creatinine 0.4 L Creat Clearance w eGFR 157.80 Random Glucose 115 H Calcium 8.5 Magnesium 1.9 1.7 L Total Bilirubin 0.2 AST 20 ALT 22 Alkaline Phosphatase 75 Total Protein 5.3 L Albumin 2.0 L Urine Color Yellow Urine Appearance Cloudy Urine pH 5.5 Ur Specific [place] 1.010 Urine Protein Negative Urine Glucose (UA) Negative Urine Ketones Negative Urine Blood Negative Urine Nitrite Negative Urine Bilirubin Negative Urine Urobilinogen 0.2 Ur Leukocyte Esterase 2+ H Urine WBC (Auto) 11 Urine RBC (Auto) 3 Urine Casts (Auto) 33 U Pathogenic Cast Auto None seen U Epithel Cells (Auto) 22.9 U Sm Round Cell (Auto) 5 Urine Bacteria (Auto) >100 03/21/19 03/22/19 03/22/19 16:30 05:30 05:30 WBC 10.6 H 8.1 RBC 3.23 L 3.03 L Hgb 8.1 L 7.7 L Hct 25.6 L 23.6 L MCV 79.3 L 78.0 L MCH 25.1 L 25.6 L MCHC 31.6 L 32.8 RDW 16.8 H 17.0 H Plt Count 535 H 504 H MPV 7.7 8.0 Absolute Neuts (auto) 6.5 4.8 Neutrophils % 61.6 59.1 Lymphocytes % 21.6 D 21.6 Monocytes % 9.6 8.7 Eosinophils % 6.0 H 9.3 H Basophils % 1.2 1.3 Nucleated RBC % 0 0 Platelet Estimate Increased Platelet Comment No clumping noted Sodium 138 Potassium 3.7 Chloride 106 Carbon Dioxide 26 Anion Gap 6 L BUN 10 Creatinine 0.3 L Creat Clearance w eGFR 219.93 Random Glucose 83 Calcium 8.5 Magnesium 2.0 Total Bilirubin 0.3 AST 22 ALT 28 Alkaline Phosphatase 77 Total Protein 5.3 L Albumin 2.0 L Urine Color Urine Appearance Urine pH Ur Specific [place] Urine Protein Urine Glucose (UA) Urine Ketones Urine Blood Urine Nitrite Urine Bilirubin Urine Urobilinogen Ur Leukocyte Esterase Urine WBC (Auto) Urine RBC (Auto) Urine Casts (Auto) U Pathogenic Cast Auto U Epithel Cells (Auto) U Sm Round Cell (Auto) Urine Bacteria (Auto) Active Medications Generic Name Dose Route Start Last Admin Trade Name Freq PRN Reason Stop Dose Admin Albuterol Sulfate 1 amp 03/21/19 15:45 03/22/19 07:29 Ventolin 0.083% Nebulizer Soln - NEB 1 amp Q8H [facility] Administration Amino Acids 30 ml 03/20/19 17:30 03/21/19 17:20 Prosource No Carb Liquid Pkt PO 30 ml BID@0800,1730 [facility] Administration Ascorbic Acid 250 mg 03/21/19 22:00 03/21/19 22:12 Vitamin C - PO 250 mg BID [facility] Administration Atorvastatin Calcium 20 mg 03/19/19 22:00 03/21/19 22:12 Lipitor - PO 20 mg HS [facility] Administration Baclofen 10 mg 03/19/19 22:00 03/22/19 06:58 Lioresal - PO 10 mg TID [facility] Administration Bisacodyl 10 mg 03/20/19 22:00 03/21/19 22:12 Dulcolax - PO 10 mg HS [facility] Administration Collagenase 1 applic 03/20/19 10:00 03/21/19 09:41 Santyl - TP 1 applic DAILY [facility] Administration Protocol Enoxaparin Sodium 90 mg 03/21/19 22:00 03/21/19 22:12 Lovenox - SQ 90 mg BID [facility] Administration Ferrous Sulfate 325 mg 03/21/19 17:30 03/21/19 17:20 Feosol - PO 325 mg BIDWM [facility] Administration Piperacillin Sod/Tazobactam 50 mls @ 100 mls/hr 03/20/19 12:15 03/22/19 03:00 Sod 3.375 gm/ Dextrose IVPB 100 mls/hr Q8H-IV [facility] Administration Protocol Sodium Chloride 1,000 mls @ 100 mls/hr 03/22/19 07:30 Normal Saline - IV ASDIR [facility] Metoprolol Succinate 25 mg 03/19/19 23:15 03/21/19 22:12 Toprol Xl - PO 25 mg BID [facility] Administration Metoprolol Tartrate 5 mg 03/19/19 21:16 03/20/19 06:07 Lopressor Injection - IVPUSH 5 mg Q4H PRN Administration TACHYCARDIA Multivitamins/Minerals/Vitamin C 1 tab 03/20/19 10:00 03/21/19 09:41 Tab-A-Vit - PO 1 tab DAILY [facility] Administration Oxycodone HCl 5 mg 03/21/19 12:15 03/21/19 12:23 Roxicodone - PO 5 mg Q6H PRN Administration PAIN LEVEL 7 - 10 Senna 2 tab 03/21/19 22:00 Senna - PO HS PRN CONSTIPATION ASSESSMENT/PLAN: Patient is a 69 year old female with a significant past medical history of hypertension, HLD, bed bound secondary to lower extremity paraplegia T6 injury s /p fall, chronic hicks and chronic sacral wound. She presents to the ER after being advised by her home care nurse that her sacral wound is worsening and now with odor and drainage, she had a wound vac placed at home. Patient also reports worsening pain of this wound. Patient has been bed bound after a traumatic fall last year. Patient denies fevers, chills, sweats, or fatigue. She denies chest pain, no shortness of breath. She states that she was diagnosed with atrial fibrillation in the past and was on blood thinners with injections (lovenox?). She was then transitioned to ASA 325mg BID and has been taking this medication since. Her workers compensation attorney is at [facility], but she is unsure of his name. In the ED she was noted to be with afib and RVR 150s. ID Meets SIRS/sepsis criteria on admission. She has a large sacral wound with mild odor, drainage and pain. mildly hypotensive with afib RVR and leukocytosis. Multiple sites of exposed bone of sacrum. Pelvic CT shows acute osteomyelitis. Plastic surgery consulted for possible wound closure. On Zosyn per ID. Wound culture poly microbial. Vascular/Surgery: Large sacral Stage 4 wound. Circular large Sacral wound: + odor, min drainage, tissue pink, exposed bone and exposed muscles. measurement as noted above. wound dressing with Santyl.Plastic surgery consulted for potential closure of wound. On prosoure BID. dietary following. patient to be turned side to side to avoid further pressure on this wound. General surgery following. Cardiology: Afib with RVR. Not anticoagulated at home except for ASA 325mg bid. Now on Lovenox 90mg BID dosing based on weight. Transition to oral anticoagulation per cardiology. Rate control with lopressor 4mg push prn, and metoprolol 25mg bid. Hypertension. but now hypotensive. monitor BP in the setting of sepsis. on metoprolol 25mg. bid. lopressor pushes q 4 prn Heme: anemia. iron studies pending. : Chronic hicks for immobility: changed monthly. last changed 1 week ago at home. not changed in the ED. hicks changed today and repeat urine culture and UA. UTI per UA: UC with ecoli and mssa. On Zosyn. Pulmonary: Asthma history. Not in acute exacerbation, no wheezing on exam, stable oxygen on room air. Stopped Advair per her PCP. Will start on duonebs scheduled. If becomes short of breath or starts to wheeze, will consult pulmonary. fen po monitor electrolytes regular diet prophy lovenox bid therapeutic protonix will order PT for range of motion Visit type - Emergency Visit Emergency Visit: Yes ED Registration Date: 03/19/19 Care time: The patient presented to the Emergency Department on the above date and was hospitalized for further evaluation of their emergent condition. - New Patient This patient is new to me today: No - Critical Care Critical Care patient: No - Discharge Referral Referred to [facility] No
[2019-03-22] MEDS ORDERED: BISACODYL 5 MG TABLET.DR (FP) PO PRN (10:47)
[2019-03-22] MEDS ORDERED: PT OWN MED DRAWER 7, Y5N ONE ×2 (10:52→21:46)
--- NOTE | 2019-03-22 11:24 | PN ---
Progress Note, Physician History of Present Illness: Pt with chronic stage 4 sacral decubitus with exposed bone, bony erosion on CT consistent with osteomyelitis. Also with catheter-associated UTI, cx growing MSSA and sensitive E. coli. On antibiotics per ID. Catheter changed and new studies sent yesterday. On therapeutic lovenox for afib. Pt seen and examined in bed. Tolerating diet, now having multiple loose brown BMs. Denies pain at this time. Seen and examined with Genie Vázquez, [employer], and dressing changed. - Current Medication List Current Medications: Active Medications Acetaminophen (Tylenol -) 650 mg PO Q6H PRN PRN Reason: PAIN LEVEL 6-10 Albuterol Sulfate (Ventolin 0.083% Nebulizer Soln -) 1 amp NEB Q8H [facility] Last Admin: 03/22/19 07:29 Dose: 1 amp Amino Acids (Prosource No Carb Liquid Pkt) 30 ml PO BID@0800,1730 [facility] Last Admin: 03/21/19 17:20 Dose: 30 ml Ascorbic Acid (Vitamin C -) 250 mg PO BID [facility] Last Admin: 03/21/19 22:12 Dose: 250 mg Atorvastatin Calcium (Lipitor -) 20 mg PO HS [facility] Last Admin: 03/21/19 22:12 Dose: 20 mg Baclofen (Lioresal -) 10 mg PO TID [facility] Last Admin: 03/22/19 06:58 Dose: 10 mg Bisacodyl (Dulcolax -) 10 mg PO HS PRN PRN Reason: CONSTIPATION Collagenase (Santyl -) 1 applic TP DAILY [facility]; Protocol Last Admin: 03/21/19 09:41 Dose: 1 applic Enoxaparin Sodium (Lovenox -) 90 mg SQ BID [facility] Last Admin: 03/21/19 22:12 Dose: 90 mg Ferrous Sulfate (Feosol -) 325 mg PO BIDWM [facility] Last Admin: 03/21/19 17:20 Dose: 325 mg Piperacillin Sod/Tazobactam (Sod 3.375 gm/ Dextrose) 50 mls @ 100 mls/hr IVPB Q8H-IV [facility]; Protocol Last Admin: 03/22/19 03:00 Dose: 100 mls/hr Sodium Chloride (Normal Saline -) 1,000 mls @ 100 mls/hr IV ASDIR [facility] Metoprolol Succinate (Toprol Xl -) 25 mg PO BID [facility] Last Admin: 03/21/19 22:12 Dose: 25 mg Metoprolol Tartrate (Lopressor Injection -) 5 mg IVPUSH Q4H PRN PRN Reason: TACHYCARDIA Last Admin: 03/20/19 06:07 Dose: 5 mg Multivitamins/Minerals/Vitamin C (Tab-A-Vit -) 1 tab PO DAILY [facility] Last Admin: 03/21/19 09:41 Dose: 1 tab Oxycodone HCl (Roxicodone -) 5 mg PO Q6H PRN PRN Reason: PAIN LEVEL 7 - 10 Last Admin: 03/21/19 12:23 Dose: 5 mg - Objective Vital Signs: Vital Signs Temperature 97.8 F 03/22/19 06:00 Pulse Rate 110 H 03/22/19 06:00 Respiratory Rate 20 03/22/19 06:00 Blood Pressure 110/68 03/22/19 06:00 O2 Sat by Pulse Oximetry (%) 96 03/21/19 21:00 Constitutional: Yes: No Distress, Calm, Obese Eyes: Yes: Conjunctiva Clear, EOM Intact HENT: Yes: Atraumatic, Normocephalic Gastrointestinal: Yes: Soft, Abdomen, Obese. No: Tenderness ...Rectal Exam: Yes: Other (active soft, loose, brown BMs and flatus; cleansed by nursing staff including perineal area/Stewart) Genitourinary: Yes: Stewart Present (yellow urine). No: Hematuria Extremities: Yes: Other (bilat leg/foot padded braces). No: Cool, Cyanosis Integumentary: Yes: Pressure Ulcer (sacral - dressing changed), Other (mild skin irritation from adhesive directly around wound area, new dressing placed to avoid tape directly on affected skin). No: Jaundice Wound/Incision: Yes: Dressing Removed (dressing moist with serous drainage; collagenase applied to wound surfaces, dry Kerlix gauze packed into wound over that to fill space, covered with folded ABD pad, silk tape to protect from fecal contamination), Reddened (mild, just at wound margins), Unapproximated (+ exposed bone, wound base mostly pink, a little negative cleaner at superior aspect, still with areas of dark/soft surface tissue; small open area in bottom of wound at right of exposed/eroded sacral bone into deeper tissues with some serous fluid present - no purulence), Other (nurse reported odor present prior to pt's multiple BM's - ? if wound-related; no strong odor on dressing) Neurological: Yes: Alert, Oriented Labs: CBC, BMP 03/22/19 05:30 03/22/19 05:30 CMP Sodium 138 mmol/L (136-145) 03/22/19 05:30 Potassium 3.7 mmol/L (3.5-5.1) 03/22/19 05:30 Chloride 106 mmol/L (98-107) 03/22/19 05:30 Carbon Dioxide 26 mmol/L (21-32) 03/22/19 05:30 Anion Gap 6 MMOL/L (8-16) L 03/22/19 05:30 BUN 10 mg/dL (7-18) 03/22/19 05:30 Creatinine 0.3 mg/dL (0.55-1.3) L 03/22/19 05:30 Creat Clearance w eGFR 219.93 (>60) 03/22/19 05:30 Random Glucose 83 mg/dL (74-106) 03/22/19 05:30 Hemoglobin A1c % 5.2 % (4.2-6.3) 03/20/19 05:30 Lactic Acid 0.9 mmol/L (0.4-2.0) 03/19/19 12:00 Calcium 8.5 mg/dL (8.5-10.1) 03/22/19 05:30 Magnesium 2.0 mg/dL (1.8-2.4) 03/22/19 05:30 Ferritin 282.5 ng/ml (8-388) 03/20/19 05:30 Total Bilirubin 0.3 mg/dL (0.2-1) 03/22/19 05:30 AST 22 U/L (15-37) 03/22/19 05:30 ALT 28 U/L (13-61) 03/22/19 05:30 Alkaline Phosphatase 77 U/L (45-117) 03/22/19 05:30 Troponin I < 0.02 ng/ml (0.00-0.05) 03/20/19 05:30 Total Protein 5.3 g/dl (6.4-8.2) L 03/22/19 05:30 Albumin 2.0 g/dl (3.4-5.0) L 03/22/19 05:30 TSH 0.61 uIU/ml (0.358-3.74) 03/20/19 05:30 Microbiology 03/19/19 12:00 Urine Culture - Preliminary Urine - Urine - Catheterized Escherichia Coli Presumptive Mssa (Pbp2a Neg) 03/19/19 12:15 Gram Stain - Final Ulcer Wound Culture - Preliminary Staphylococcus Aureus Escherichia Coli Group D Strep Or Entero Coccus Streptococcus Viridans 03/19/19 12:00 Blood Culture - Preliminary Blood - Peripheral Venous NO GROWTH OBTAINED AFTER 48 HOURS, INCUBATION TO CONTINUE FOR 3 DAYS. 03/19/19 11:53 Blood Culture - Preliminary Blood - Peripheral Venous NO GROWTH OBTAINED AFTER 48 HOURS, INCUBATION TO CONTINUE FOR 3 DAYS. Problem List - Problems (1) Sacral decubitus ulcer, stage IV Assessment/Plan: ulcer present for many months, previously treated with dressing changes and various negative pressure wound therapy units followed by a wound care doctor only while in facilities wound bed relatively clean but with some areas of surface soft dark tissue, little less with collagenase exposed, eroded bone of sacrum and coccyx with presumed osteomyelitis unclear how long bone has been visible in wound, but bony erosion has surely taken time to occur dressing changed with Genie Vázquez and nurse antibiotics per ID need pressure relief ENTIRELY off midline/wound area preferably position patient up on hip/shoulder, [id number]-side, not on back -- may not be possible secondary to patient tolerance would likely benefit from high-level pressure relief mattress/surface - clinitron bed ordered by primary team plastic surgery to see later today given bone in wound with erosion/osteo, will likely need excision/debridement of infected bone(?) and reconstructive options for wound closure unclear if colostomy would be necessary seen and discussed with Genie Vázquez NP Code(s): L89.154 - PRESSURE ULCER OF SACRAL REGION, STAGE 4 (2) Osteomyelitis of vertebra, sacral and sacrococcygeal region Assessment/Plan: see above antibiotics per ID surface culture will not be useful in guiding therapy may need bone culture and/or excision to clear infection and achieve ultimate closure Code(s): M46.28 - OSTEOMYELITIS OF VERTEBRA, SACRAL AND SACROCOCCYGEAL REGION (3) Urinary tract infection associated with indwelling urethral catheter Assessment/Plan: complicated UTI, given chronic catheterization culture growing E. coli and MSSA Stewart changed yesterday with new UA and culture pending defer to ID for antibiotics Code(s): T83.511A - I/I REACT D/T INDWELLING URETHRAL CATHETER, INIT; N39.0 - URINARY TRACT INFECTION, SITE NOT SPECIFIED Qualifiers: Encounter type: initial encounter Qualified Code(s): T83.511A - Infection and inflammatory reaction due to indwelling urethral catheter, initial encounter ; N39.0 - Urinary tract infection, site not specified (4) Fecal impaction in rectum Assessment/Plan: resolved - now with loose stools will change HS laxative to PRN - only if no BM in 24h Code(s): K56.41 - FECAL IMPACTION (5) Atrial fibrillation Assessment/Plan: telemetry cardiology following on therapeutic lovenox 90mg bid Code(s): I48.91 - UNSPECIFIED ATRIAL FIBRILLATION Qualifiers: Atrial fibrillation type: paroxysmal Qualified Code(s): I48.0 - Paroxysmal atrial fibrillation (6) Hypertension Assessment/Plan: home metoprolol Code(s): I10 - ESSENTIAL (PRIMARY) HYPERTENSION Qualifiers: Hypertension type: essential hypertension Qualified Code(s): I10 - Essential (primary) hypertension (7) Hypercholesterolemia Assessment/Plan: home lipitor Code(s): E78.00 - PURE HYPERCHOLESTEROLEMIA, UNSPECIFIED (8) Asthma Assessment/Plan: consider nebs prn on [place] O2 consider pulmonary consult - pt used to be on maintenance meds, stopped sometime before getting home from last rehab? Code(s): J45.909 - UNSPECIFIED ASTHMA, UNCOMPLICATED Qualifiers: Asthma severity: mild Asthma persistence: intermittent Asthma complication type: uncomplicated Qualified Code(s): J45.20 - Mild intermittent asthma, uncomplicated (9) Other obesity due to excess calories Code(s): E66.09 - OTHER OBESITY DUE TO EXCESS CALORIES (10) Paraplegia, incomplete Code(s): G82.22 - PARAPLEGIA, INCOMPLETE
[2019-03-22] MEDS: SODIUM CHLORIDE 1,000 ML IV SCH (11:25)
[2019-03-22] MEDS: AMINO ACIDS/PROTEIN HYDROLYS 30 ML LIQUID.PKT PO SCH ×2 (11:26→18:32)
[2019-03-22] MEDS: FERROUS SO4 325 MG TABLET (FP) PO SCH ×2 (11:26→18:32)
[2019-03-22] MEDS: ENOXAPARIN NA (PORCINE) 100 MG/1 ML DISP.SYRIN SQ SCH ×2 (11:26→21:46)
[2019-03-22] MEDS: COLLAGENASE CLOSTRIDIUM HIST. 30 GRAMS TUBE TP SCH (11:34)
[2019-03-22] MEDS: metoPROLOL SUCCINATE 25 MG TAB.SR.24H (FP) PO SCH ×2 (11:34→21:46)
[2019-03-22] MEDS: MULTIVITAMINS (DAILY MVI) TABLET (FP) PO SCH (11:34)
[2019-03-22] MEDS: ASCORBIC ACID 250 MG TABLET (FP) PO SCH ×2 (11:35→21:46)
[2019-03-22] MEDS: oxyCODONE HCL 5 MG TABLET PO PRN (11:40)
--- NOTE | 2019-03-22 14:37 | PN ---
Progress Note, Physician History of Present Illness: stable doing well no complaints - Current Medication List Current Medications: Active Medications Acetaminophen (Tylenol -) 650 mg PO Q6H PRN PRN Reason: PAIN LEVEL 6-10 Albuterol Sulfate (Ventolin 0.083% Nebulizer Soln -) 1 amp NEB 0800,1400,2200 [facility] Last Admin: 03/22/19 14:18 Dose: 1 amp Amino Acids (Prosource No Carb Liquid Pkt) 30 ml PO BID@0800,1730 [facility] Last Admin: 03/22/19 11:26 Dose: 30 ml Ascorbic Acid (Vitamin C -) 250 mg PO BID [facility] Last Admin: 03/22/19 11:35 Dose: 250 mg Atorvastatin Calcium (Lipitor -) 20 mg PO HS [facility] Last Admin: 03/21/19 22:12 Dose: 20 mg Baclofen (Lioresal -) 10 mg PO TID [facility] Last Admin: 03/22/19 14:26 Dose: 10 mg Bisacodyl (Dulcolax -) 10 mg PO HS PRN PRN Reason: CONSTIPATION Collagenase (Santyl -) 1 applic TP DAILY [facility]; Protocol Last Admin: 03/22/19 11:34 Dose: 1 applic Enoxaparin Sodium (Lovenox -) 90 mg SQ BID [facility] Last Admin: 03/22/19 11:26 Dose: 90 mg Ferrous Sulfate (Feosol -) 325 mg PO BIDWM [facility] Last Admin: 03/22/19 11:26 Dose: 325 mg Piperacillin Sod/Tazobactam (Sod 3.375 gm/ Dextrose) 50 mls @ 100 mls/hr IVPB Q8H-IV [facility]; Protocol Last Admin: 03/22/19 11:36 Dose: 100 mls/hr Sodium Chloride (Normal Saline -) 1,000 mls @ 100 mls/hr IV ASDIR [facility] Last Admin: 03/22/19 11:25 Dose: 100 mls/hr Metoprolol Succinate (Toprol Xl -) 25 mg PO BID [facility] Last Admin: 03/22/19 11:34 Dose: 25 mg Metoprolol Tartrate (Lopressor Injection -) 5 mg IVPUSH Q4H PRN PRN Reason: TACHYCARDIA Last Admin: 03/20/19 06:07 Dose: 5 mg Multivitamins/Minerals/Vitamin C (Tab-A-Vit -) 1 tab PO DAILY [facility] Last Admin: 03/22/19 11:34 Dose: 1 tab Oxycodone HCl (Roxicodone -) 5 mg PO Q6H PRN PRN Reason: PAIN LEVEL 7 - 10 Last Admin: 03/22/19 11:40 Dose: 5 mg - Objective Vital Signs: Vital Signs Temperature 97.8 F 03/22/19 14:00 Pulse Rate 92 H 03/22/19 14:00 Respiratory Rate 20 03/22/19 14:00 Blood Pressure 102/48 L 03/22/19 14:00 O2 Sat by Pulse Oximetry (%) 96 03/21/19 21:00 Constitutional: Yes: No Distress, Calm Cardiovascular: Yes: Regular Rate and Rhythm Respiratory: Yes: Regular, CTA Bilaterally Gastrointestinal: Yes: Normal Bowel Sounds, Soft Musculoskeletal: Yes: WNL Extremities: Yes: WNL Wound/Incision: Yes: Dressing Dry and Intact Neurological: Yes: Alert, Oriented Psychiatric: Yes: Alert, Oriented Labs: CBC, BMP 03/22/19 05:30 03/22/19 05:30 INR, PTT INR 1.22 (0.83-1.09) H 03/20/19 05:30 Assessment/Plan Problem List - Problems (1) Sacral decubitus ulcer, stage IV Code(s): L89.154 - PRESSURE ULCER OF SACRAL REGION, STAGE 4 (2) Osteomyelitis of vertebra, sacral and sacrococcygeal region Code(s): M46.28 - OSTEOMYELITIS OF VERTEBRA, SACRAL AND SACROCOCCYGEAL REGION (3) Urinary tract infection associated with indwelling urethral catheter Code(s): T83.511A - I/I REACT D/T INDWELLING URETHRAL CATHETER, INIT; N39.0 - URINARY TRACT INFECTION, SITE NOT SPECIFIED Qualifiers: Encounter type: initial encounter Qualified Code(s): T83.511A - Infection and inflammatory reaction due to indwelling urethral catheter, initial encounter ; N39.0 - Urinary tract infection, site not specified (4) Fecal impaction in rectum Code(s): K56.41 - FECAL IMPACTION (5) Atrial fibrillation Code(s): I48.91 - UNSPECIFIED ATRIAL FIBRILLATION Qualifiers: Atrial fibrillation type: paroxysmal Qualified Code(s): I48.0 - Paroxysmal atrial fibrillation (6) Hypertension Code(s): I10 - ESSENTIAL (PRIMARY) HYPERTENSION Qualifiers: Hypertension type: essential hypertension Qualified Code(s): I10 - Essential (primary) hypertension (7) Hypercholesterolemia Code(s): E78.00 - PURE HYPERCHOLESTEROLEMIA, UNSPECIFIED (8) Asthma Code(s): J45.909 - UNSPECIFIED ASTHMA, UNCOMPLICATED Qualifiers: Asthma severity: mild Asthma persistence: intermittent Asthma complication type: uncomplicated Qualified Code(s): J45.20 - Mild intermittent asthma, uncomplicated (9) Other obesity due to excess calories Code(s): E66.09 - OTHER OBESITY DUE TO EXCESS CALORIES (10) Paraplegia, incomplete Code(s): G82.22 - PARAPLEGIA, INCOMPLETE plan will await plastic to see continue iv abx all cx reports noted will eventually transition to oral
[2019-03-22] MEDS: ATORVASTATIN CA 20 MG TABLET (FP) PO SCH (21:46)
[2019-03-22] MEDS: ACETAMINOPHEN 325 MG TABLET (FP) PO PRN (23:34)
[2019-03-23] MEDS ORDERED: PIPERACILLIN/TAZOBACTAM 3.375 GM VIAL IVPB ONE ×3 (00:52→17:49)
[2019-03-23] MEDS ORDERED: DEXTROSE 5%-WATER - 50 ML IVPB ONE ×3 (00:53→17:49)
[2019-03-23] MEDS: SODIUM CHLORIDE 1,000 ML IV SCH ×2 (01:01→10:21)
[2019-03-23] MEDS: PIPERACILLIN/TAZOB 3.375 GM 3.375 GM in DEXTROSE 5%-WATER - 50 ML IVPB SCH ×3 (01:01→18:31)
[2019-03-23] MEDS: BACLOFEN 10 MG TABLET (FP) PO SCH ×3 (06:26→21:33)
[2019-03-23] MEDS: ALBUTEROL SO4 0.083% IH SOL 2.5 MG/3 ML VIAL.NEB. NEB SCH ×3 (07:31→21:25)
[2019-03-23] MEDS ORDERED: PT OWN MED DRAWER 7, Y5N ONE (10:12)
--- NOTE | 2019-03-23 10:14 | PN ---
Progress Note, Physician Chief Complaint: Events noted Not in distress History of Present Illness: Patient was seen and examined. Awake and alert. Chart was reviewed Denies chest pain, SOB or palpitations Remains in sinus rhythm - Current Medication List Current Medications: Active Medications Acetaminophen (Tylenol -) 650 mg PO Q6H PRN PRN Reason: PAIN LEVEL 6-10 Last Admin: 03/22/19 23:34 Dose: 650 mg Albuterol Sulfate (Ventolin 0.083% Nebulizer Soln -) 1 amp NEB 0800,1400,2200 [facility] Last Admin: 03/23/19 07:31 Dose: 1 amp Amino Acids (Prosource No Carb Liquid Pkt) 30 ml PO BID@0800,1730 [facility] Last Admin: 03/22/19 18:32 Dose: 30 ml Ascorbic Acid (Vitamin C -) 250 mg PO BID [facility] Last Admin: 03/22/19 21:46 Dose: 250 mg Atorvastatin Calcium (Lipitor -) 20 mg PO HS [facility] Last Admin: 03/22/19 21:46 Dose: 20 mg Baclofen (Lioresal -) 10 mg PO TID [facility] Last Admin: 03/23/19 06:26 Dose: 10 mg Bisacodyl (Dulcolax -) 10 mg PO HS PRN PRN Reason: CONSTIPATION Collagenase (Santyl -) 1 applic TP DAILY [facility]; Protocol Last Admin: 03/22/19 11:34 Dose: 1 applic Enoxaparin Sodium (Lovenox -) 90 mg SQ BID [facility] Last Admin: 03/22/19 21:46 Dose: 90 mg Ferrous Sulfate (Feosol -) 325 mg PO BIDWM [facility] Last Admin: 03/22/19 18:32 Dose: 325 mg Piperacillin Sod/Tazobactam (Sod 3.375 gm/ Dextrose) 50 mls @ 100 mls/hr IVPB Q8H-IV [facility]; Protocol Last Admin: 03/23/19 01:01 Dose: 100 mls/hr Sodium Chloride (Normal Saline -) 1,000 mls @ 100 mls/hr IV ASDIR [facility] Last Admin: 03/23/19 01:01 Dose: 100 mls/hr Metoprolol Succinate (Toprol Xl -) 25 mg PO BID [facility] Last Admin: 03/22/19 21:46 Dose: 25 mg Metoprolol Tartrate (Lopressor Injection -) 5 mg IVPUSH Q4H PRN PRN Reason: TACHYCARDIA Last Admin: 03/20/19 06:07 Dose: 5 mg Multivitamins/Minerals/Vitamin C (Tab-A-Vit -) 1 tab PO DAILY [facility] Last Admin: 03/22/19 11:34 Dose: 1 tab Oxycodone HCl (Roxicodone -) 5 mg PO Q6H PRN PRN Reason: PAIN LEVEL 7 - 10 Last Admin: 03/22/19 11:40 Dose: 5 mg - Objective Vital Signs: Vital Signs Temperature 98.6 F 03/23/19 06:00 Pulse Rate 77 03/23/19 06:00 Respiratory Rate 20 03/23/19 06:00 Blood Pressure 98/59 L 03/23/19 06:00 O2 Sat by Pulse Oximetry (%) 97 03/22/19 20:30 Eyes: Yes: PERRL HENT: Yes: Atraumatic Neck: Yes: Supple Cardiovascular: Yes: Regular Rate and Rhythm, S1, S2 Respiratory: Yes: CTA Bilaterally Gastrointestinal: Yes: Normal Bowel Sounds, Soft. No: Tenderness Edema: No Additional Findings/Remarks: - Review of Systems Constitutional: denies: Chills, Fever Cardiovascular: denies: Chest Pain. denies: Palpitations, Shortness of Breath Respiratory: denies: Cough, Hemoptysis, Orthopnea, PND, SOB, SOB on Exertion Gastrointestinal: denies: Diarrhea, Nausea. denies: Abdominal Pain, Constipation, Melena, Rectal Bleeding, Vomiting Genitourinary: denies: Dysuria, Hematuria Musculoskeletal: denies: Back Pain, Joint Pain Neurological: denies: Dizziness, Headache, Seizure, Syncope Labs: CBC, BMP 03/22/19 05:30 03/22/19 05:30 Problem List - Problems (1) Anemia Code(s): D64.9 - ANEMIA, UNSPECIFIED Qualifiers: Anemia type: unspecified type Qualified Code(s): D64.9 - Anemia, unspecified (2) Atrial fibrillation Code(s): I48.91 - UNSPECIFIED ATRIAL FIBRILLATION Qualifiers: Atrial fibrillation type: paroxysmal Qualified Code(s): I48.0 - Paroxysmal atrial fibrillation (3) Hypercholesterolemia Code(s): E78.00 - PURE HYPERCHOLESTEROLEMIA, UNSPECIFIED (4) Hypertension Code(s): I10 - ESSENTIAL (PRIMARY) HYPERTENSION Qualifiers: Hypertension type: essential hypertension Qualified Code(s): I10 - Essential (primary) hypertension (5) Osteomyelitis of vertebra, sacral and sacrococcygeal region Code(s): M46.28 - OSTEOMYELITIS OF VERTEBRA, SACRAL AND SACROCOCCYGEAL REGION (6) Paraplegia, incomplete Code(s): G82.22 - PARAPLEGIA, INCOMPLETE (7) Sacral decubitus ulcer, stage IV Code(s): L89.154 - PRESSURE ULCER OF SACRAL REGION, STAGE 4 Assessment/Plan 1. Sacral decubiti wound infection, ? osteomyelitis 2. PAF currently in sinus rhythm, [id number] score of 3 3. HTN 4. Hypercholesterolemia 5. Paraplegia s/p fall 6. Anemia PLAN: 1. Continue LMWH 80 mg BID - may need surgical debridement Plastic surgery consultation pending, continue empiric antibiotics. If surgery is not planned exterminator helper anticoagulation using DOAC may be considered (i.e. Eliquis 5 mg BID) 2. Rate control with Metoprolol 25 mg BID and Lipitor 20 mg QHS 3. Echocardiography noted 4. Discontinue telemtery and may transfer to floor care Twin Doran MD
[2019-03-23] MEDS: FERROUS SO4 325 MG TABLET (FP) PO SCH ×2 (10:23→18:30)
[2019-03-23] MEDS: AMINO ACIDS/PROTEIN HYDROLYS 30 ML LIQUID.PKT PO SCH ×2 (10:24→18:30)
[2019-03-23] MEDS: ENOXAPARIN NA (PORCINE) 100 MG/1 ML DISP.SYRIN SQ SCH ×2 (10:24→21:32)
[2019-03-23] MEDS: metoPROLOL SUCCINATE 25 MG TAB.SR.24H (FP) PO SCH ×2 (10:25→21:33)
[2019-03-23] MEDS: MULTIVITAMINS (DAILY MVI) TABLET (FP) PO SCH (10:25)
[2019-03-23] MEDS: ASCORBIC ACID 250 MG TABLET (FP) PO SCH ×2 (10:25→21:32)
--- NOTE | 2019-03-23 12:34 | PN ---
Progress Note, Physician Chief Complaint: worsening sacral wound History of Present Illness: Pt. seen and examined at bedside, no acute events overnight. No changes, feeling ok. afebrile. - Current Medication List Current Medications: Active Medications Acetaminophen (Tylenol -) 650 mg PO Q6H PRN PRN Reason: PAIN LEVEL 6-10 Last Admin: 03/22/19 23:34 Dose: 650 mg Albuterol Sulfate (Ventolin 0.083% Nebulizer Soln -) 1 amp NEB 0800,1400,2200 [facility] Last Admin: 03/23/19 07:31 Dose: 1 amp Amino Acids (Prosource No Carb Liquid Pkt) 30 ml PO BID@0800,1730 [facility] Last Admin: 03/23/19 10:24 Dose: 30 ml Ascorbic Acid (Vitamin C -) 250 mg PO BID [facility] Last Admin: 03/23/19 10:25 Dose: 250 mg Atorvastatin Calcium (Lipitor -) 20 mg PO HS [facility] Last Admin: 03/22/19 21:46 Dose: 20 mg Baclofen (Lioresal -) 10 mg PO TID [facility] Last Admin: 03/23/19 06:26 Dose: 10 mg Bisacodyl (Dulcolax -) 10 mg PO HS PRN PRN Reason: CONSTIPATION Collagenase (Santyl -) 1 applic TP DAILY [facility]; Protocol Last Admin: 03/22/19 11:34 Dose: 1 applic Enoxaparin Sodium (Lovenox -) 90 mg SQ BID [facility] Last Admin: 03/23/19 10:24 Dose: 90 mg Ferrous Sulfate (Feosol -) 325 mg PO BIDWM [facility] Last Admin: 03/23/19 10:23 Dose: 325 mg Piperacillin Sod/Tazobactam (Sod 3.375 gm/ Dextrose) 50 mls @ 100 mls/hr IVPB Q8H-IV [facility]; Protocol Last Admin: 03/23/19 10:25 Dose: 100 mls/hr Sodium Chloride (Normal Saline -) 1,000 mls @ 100 mls/hr IV ASDIR [facility] Last Admin: 03/23/19 10:21 Dose: 100 mls/hr Metoprolol Succinate (Toprol Xl -) 25 mg PO BID [facility] Last Admin: 03/23/19 10:25 Dose: 25 mg Metoprolol Tartrate (Lopressor Injection -) 5 mg IVPUSH Q4H PRN PRN Reason: TACHYCARDIA Last Admin: 03/20/19 06:07 Dose: 5 mg Multivitamins/Minerals/Vitamin C (Tab-A-Vit -) 1 tab PO DAILY [facility] Last Admin: 03/23/19 10:25 Dose: 1 tab Oxycodone HCl (Roxicodone -) 5 mg PO Q6H PRN PRN Reason: PAIN LEVEL 7 - 10 Last Admin: 03/22/19 11:40 Dose: 5 mg - Objective Vital Signs: Vital Signs Temperature 97.8 F 03/23/19 10:00 Pulse Rate 87 03/23/19 10:00 Respiratory Rate 20 03/23/19 10:00 Blood Pressure 96/50 L 03/23/19 10:00 O2 Sat by Pulse Oximetry (%) 97 03/22/19 20:30 Constitutional: Yes: Well Nourished, No Distress, Calm Cardiovascular: Yes: Pulse Irregular Respiratory: Yes: WNL, Regular, CTA Bilaterally Gastrointestinal: Yes: WNL, Normal Bowel Sounds, Soft, Abdomen, Obese Musculoskeletal: Yes: WNL Extremities: Yes: WNL Edema: No Wound/Incision: Yes: Other (large unsteageable sacral wound, round, mild odor, discoloration/erythema) Labs: CBC, BMP 03/22/19 05:30 03/22/19 05:30 INR, PTT INR 1.22 (0.83-1.09) H 03/20/19 05:30 Problem List - Problems (1) Anemia Code(s): D64.9 - ANEMIA, UNSPECIFIED Qualifiers: Anemia type: unspecified type Qualified Code(s): D64.9 - Anemia, unspecified (2) Asthma Code(s): J45.909 - UNSPECIFIED ASTHMA, UNCOMPLICATED Qualifiers: Asthma severity: mild Asthma persistence: intermittent Asthma complication type: uncomplicated Qualified Code(s): J45.20 - Mild intermittent asthma, uncomplicated (3) Atrial fibrillation Code(s): I48.91 - UNSPECIFIED ATRIAL FIBRILLATION Qualifiers: Atrial fibrillation type: paroxysmal Qualified Code(s): I48.0 - Paroxysmal atrial fibrillation (4) Hypercholesterolemia Code(s): E78.00 - PURE HYPERCHOLESTEROLEMIA, UNSPECIFIED (5) Hypertension Code(s): I10 - ESSENTIAL (PRIMARY) HYPERTENSION Qualifiers: Hypertension type: essential hypertension Qualified Code(s): I10 - Essential (primary) hypertension (6) Osteomyelitis of vertebra, sacral and sacrococcygeal region Code(s): M46.28 - OSTEOMYELITIS OF VERTEBRA, SACRAL AND SACROCOCCYGEAL REGION Assessment/Plan Patient is a 69 year old female with HTN, HLD, bed bound secondary to lower extremity paraplegia T6 injury s/p fall, chronic hicks and chronic sacral wound. She presents to the ER after being advised by her home care nurse that her sacral wound is worsening and now with odor and drainage, she had a wound vac placed at home. Patient also reports worsening pain of this wound. Patient has been bed bound after a traumatic fall last year. History of atrial fibrillation in the past and was on blood thinners with injections (lovenox?). She was then transitioned to ASA 325mg BID and has been taking this medication since. Her office services assistant is at [facility], but she is unsure of his name. In the ED she was noted to be with afib and RVR 150s. Sepsis secondary to osteomyelitis due to chronic sacral wound unstageable -Plastic surgery consulted for possible wound closure -on zosyn per ID -wound culture polymicrobial -wound care/dietary Afib with RVR -now controlled -Lovenox 90mg BID -BB -echo report reviewed, lv function normal HTN -bp on the lower side -bb with parameters Anemia -hb trending down -iron studies are currently pending -check FOBT -on ferrous sulfate Chronic hicks -changed monthly -UC with ecoli and mssa -on Zosyn HLD -on statin
[2019-03-23] MEDS: COLLAGENASE CLOSTRIDIUM HIST. 30 GRAMS TUBE TP SCH (12:42)
--- NOTE | 2019-03-23 13:07 | PN ---
Progress Note, Physician History of Present Illness: stable no events awaiting for plastics to see - Current Medication List Current Medications: Active Medications Acetaminophen (Tylenol -) 650 mg PO Q6H PRN PRN Reason: PAIN LEVEL 6-10 Last Admin: 03/22/19 23:34 Dose: 650 mg Albuterol Sulfate (Ventolin 0.083% Nebulizer Soln -) 1 amp NEB 0800,1400,2200 [facility] Last Admin: 03/23/19 07:31 Dose: 1 amp Amino Acids (Prosource No Carb Liquid Pkt) 30 ml PO BID@0800,1730 [facility] Last Admin: 03/23/19 10:24 Dose: 30 ml Ascorbic Acid (Vitamin C -) 250 mg PO BID [facility] Last Admin: 03/23/19 10:25 Dose: 250 mg Atorvastatin Calcium (Lipitor -) 20 mg PO HS [facility] Last Admin: 03/22/19 21:46 Dose: 20 mg Baclofen (Lioresal -) 10 mg PO TID [facility] Last Admin: 03/23/19 06:26 Dose: 10 mg Bisacodyl (Dulcolax -) 10 mg PO HS PRN PRN Reason: CONSTIPATION Collagenase (Santyl -) 1 applic TP DAILY [facility]; Protocol Last Admin: 03/23/19 12:42 Dose: 1 applic Enoxaparin Sodium (Lovenox -) 90 mg SQ BID [facility] Last Admin: 03/23/19 10:24 Dose: 90 mg Ferrous Sulfate (Feosol -) 325 mg PO BIDWM [facility] Last Admin: 03/23/19 10:23 Dose: 325 mg Piperacillin Sod/Tazobactam (Sod 3.375 gm/ Dextrose) 50 mls @ 100 mls/hr IVPB Q8H-IV [facility]; Protocol Last Admin: 03/23/19 10:25 Dose: 100 mls/hr Sodium Chloride (Normal Saline -) 1,000 mls @ 100 mls/hr IV ASDIR [facility] Last Admin: 03/23/19 10:21 Dose: 100 mls/hr Metoprolol Succinate (Toprol Xl -) 25 mg PO BID [facility] Last Admin: 03/23/19 10:25 Dose: 25 mg Metoprolol Tartrate (Lopressor Injection -) 5 mg IVPUSH Q4H PRN PRN Reason: TACHYCARDIA Last Admin: 03/20/19 06:07 Dose: 5 mg Multivitamins/Minerals/Vitamin C (Tab-A-Vit -) 1 tab PO DAILY [facility] Last Admin: 03/23/19 10:25 Dose: 1 tab Oxycodone HCl (Roxicodone -) 5 mg PO Q6H PRN PRN Reason: PAIN LEVEL 7 - 10 Last Admin: 03/22/19 11:40 Dose: 5 mg - Objective Vital Signs: Vital Signs Temperature 97.8 F 03/23/19 10:00 Pulse Rate 87 03/23/19 10:00 Respiratory Rate 20 03/23/19 10:00 Blood Pressure 96/50 L 03/23/19 10:00 O2 Sat by Pulse Oximetry (%) 97 03/22/19 20:30 Constitutional: Yes: No Distress, Calm Cardiovascular: Yes: Regular Rate and Rhythm Respiratory: Yes: Regular, CTA Bilaterally Gastrointestinal: Yes: Normal Bowel Sounds, Soft Musculoskeletal: Yes: WNL Extremities: Yes: WNL Wound/Incision: Yes: Dressing Dry and Intact Neurological: Yes: Alert, Oriented Psychiatric: Yes: Alert, Oriented Labs: CBC, BMP 03/22/19 05:30 03/22/19 05:30 INR, PTT INR 1.22 (0.83-1.09) H 03/20/19 05:30 Assessment/Plan Problem List - Problems (1) Sacral decubitus ulcer, stage IV Code(s): L89.154 - PRESSURE ULCER OF SACRAL REGION, STAGE 4 (2) Osteomyelitis of vertebra, sacral and sacrococcygeal region Code(s): M46.28 - OSTEOMYELITIS OF VERTEBRA, SACRAL AND SACROCOCCYGEAL REGION (3) Urinary tract infection associated with indwelling urethral catheter Code(s): T83.511A - I/I REACT D/T INDWELLING URETHRAL CATHETER, INIT; N39.0 - URINARY TRACT INFECTION, SITE NOT SPECIFIED Qualifiers: Encounter type: initial encounter Qualified Code(s): T83.511A - Infection and inflammatory reaction due to indwelling urethral catheter, initial encounter ; N39.0 - Urinary tract infection, site not specified (4) Fecal impaction in rectum Code(s): K56.41 - FECAL IMPACTION (5) Atrial fibrillation Code(s): I48.91 - UNSPECIFIED ATRIAL FIBRILLATION Qualifiers: Atrial fibrillation type: paroxysmal Qualified Code(s): I48.0 - Paroxysmal atrial fibrillation (6) Hypertension Code(s): I10 - ESSENTIAL (PRIMARY) HYPERTENSION Qualifiers: Hypertension type: essential hypertension Qualified Code(s): I10 - Essential (primary) hypertension (7) Hypercholesterolemia Code(s): E78.00 - PURE HYPERCHOLESTEROLEMIA, UNSPECIFIED (8) Asthma Code(s): J45.909 - UNSPECIFIED ASTHMA, UNCOMPLICATED Qualifiers: Asthma severity: mild Asthma persistence: intermittent Asthma complication type: uncomplicated Qualified Code(s): J45.20 - Mild intermittent asthma, uncomplicated (9) Other obesity due to excess calories Code(s): E66.09 - OTHER OBESITY DUE TO EXCESS CALORIES (10) Paraplegia, incomplete Code(s): G82.22 - PARAPLEGIA, INCOMPLETE plan will await plastic to see will change her tomorrow to po rest continue current mgmt rest as per the team
--- NOTE | 2019-03-23 17:17 | CONSULT ---
Consult Consult Specialty:: Plastic Surgery - Past Medical History Cardio/Vascular: Yes: AFIB (had at time of traumatic fall/spinal injury - was on blood thinners (alternating "stomach injections" and pills) until shortly before leaving [facility] 2 wks ago, when they changed her to 2 x 325mg ASA daily only), HTN, Hyperlipdemia Pulmonary: Yes: Asthma Renal/: Yes: Other (indwelling Stewart - last changed last week per pt) Musculoskeletal: Yes: Paraplegia (~T6 injury 09/28/18, can wiggle toes/move knees a little but cannot walk, has some sensation) Additional Medical History: stage 4 sacral decubitus - started at [facility] late last year - has been treated at several facilities with different VAC dressings, gauze packing at some facilities, [employer] VAC at home for last 2 weeks with black foam (??silver - pt does not know) - Past Surgical History Additional Surgical History: plastic surgery on eye in 70s after cat bite; spinal surgery x2 related to Oct 04 trauma - fall down stairs/spinal injury - Alcohol/Substance Use Hx Alcohol Use: No History of Substance Use: reports: None - Smoking History Smoking history: Former smoker Have you smoked in the past 12 months: No - Social History Usual Living Arrangement: With Significant Other ADL: Support Services Home Medications - Allergies Allergies/Adverse Reactions: Allergies Allergy/AdvReac Type Severity Reaction Status Date / Time No Known Allergies Allergy Verified 03/19/19 11:31 - Home Medications Home Medications: Ambulatory Orders Aspirin [ASA -] 325 mg PO DAILY 03/19/19 Atorvastatin Ca [Lipitor] 20 mg PO HS 03/19/19 Baclofen [Lioresal -] 10 mg PO TID 03/19/19 Metoprolol Succinate [Toprol Xl] 25 mg PO DAILY 03/19/19 Multivitamin [Multiple Vitamins] 1 each PO DAILY 03/19/19 Tizanidine HCl [Zanaflex] 0.5 mg PO HS 03/19/19 Physical Exam Vital Signs: Vital Signs Temperature 98 F 03/23/19 14:00 Pulse Rate 94 H 03/23/19 14:00 Respiratory Rate 20 03/23/19 14:00 Blood Pressure 96/52 L 03/23/19 14:00 O2 Sat by Pulse Oximetry (%) 97 03/23/19 09:00 Labs: CBC, BMP 03/22/19 05:30 03/22/19 05:30 Assessment/Plan 69 year old woman who has partially paralyzed lower extremities after a fall down stairs 6 months ago. Has been to multiple rehab facilities and developed a sacral decubitus during these multiple stays in various facilities. On physical exam patient has an 8cm round decubitus in the midline which is down to bone. Bone edge noted at base of wound which is friable. Location of wound warrants concern for fecal contamination, but there is modest distance making wouind care very feasible. Patient will need flap closure of this area but there is currently no infection or cause of concern that this wound is a source of any systemic issues. Patient is afebrile and, although the wound needs surgical definitive treatment, this is not possible until a good support system is in place for future care. Until that point wound should be treated conservatively as it is now. Will discuss with current medical care team. Thank you.
[2019-03-23] MEDS: ATORVASTATIN CA 20 MG TABLET (FP) PO SCH (21:33)
[2019-03-23] MEDS: oxyCODONE HCL 5 MG TABLET PO PRN (21:33)
[2019-03-23] MEDS: ACETAMINOPHEN 325 MG TABLET (FP) PO PRN (21:34)
[2019-03-24] MEDS: PIPERACILLIN/TAZOB 3.375 GM 3.375 GM in DEXTROSE 5%-WATER - 50 ML IVPB SCH ×2 (02:30→09:56)
[2019-03-24] MEDS ORDERED: DEXTROSE 5%-WATER - 50 ML IVPB ONE ×2 (02:50→09:15)
[2019-03-24] MEDS ORDERED: PIPERACILLIN/TAZOBACTAM 3.375 GM VIAL IVPB ONE ×2 (02:50→09:15)
[2019-03-24] MEDS: BACLOFEN 10 MG TABLET (FP) PO SCH ×3 (06:19→21:37)
[2019-03-24 06:43] LABS: EOS % 18.3 % (0-4.5); LYMPH % 20.3 % (8-40); MCH 25.4 pg (25.7-33.7); MCHC 32.1 g/dl (32.0-36.0); MEAN CELL VOLUME 79.2 fl (80-96); MEAN PLT VOLUME 7.9 fl (7.5-11.1); MONO % 6.6 % (3.8-10.2); NEUT % 53.8 % (42.8-82.8); PLATELET COUNT 541 K/MM3 (134-434); RBC 3.16 M/mm3 (3.60-5.2); RDW 17.2 % (11.6-15.6); WHITE BLOOD COUNT 8.4 K/mm3 (4.0-10.0)
[2019-03-24 07:08] LABS: CALCIUM 8.5 mg/dL (8.5-10.1); POTASSIUM 3.5 mmol/L (3.5-5.1)
[2019-03-24] MEDS: ALBUTEROL SO4 0.083% IH SOL 2.5 MG/3 ML VIAL.NEB. NEB SCH ×3 (07:31→21:28)
[2019-03-24] MEDS ORDERED: PT OWN MED DRAWER 7, Y5N ONE ×2 (09:22→20:52)
[2019-03-24 09:54] LABS: CREATININE 0.3 mg/dL (0.55-1.3)
[2019-03-24] MEDS: AMINO ACIDS/PROTEIN HYDROLYS 30 ML LIQUID.PKT PO SCH ×2 (09:56→17:36)
[2019-03-24] MEDS: ASCORBIC ACID 250 MG TABLET (FP) PO SCH ×2 (09:56→21:37)
[2019-03-24] MEDS: MULTIVITAMINS (DAILY MVI) TABLET (FP) PO SCH (09:56)
[2019-03-24] MEDS: FERROUS SO4 325 MG TABLET (FP) PO SCH ×2 (09:56→17:36)
[2019-03-24] MEDS: metoPROLOL SUCCINATE 25 MG TAB.SR.24H (FP) PO SCH ×2 (09:56→21:37)
[2019-03-24] MEDS: ENOXAPARIN NA (PORCINE) 100 MG/1 ML DISP.SYRIN SQ SCH (09:56)
[2019-03-24] MEDS ORDERED: METOPROLOL TARTRATE 5 MG/5 ML VIAL IVPUSH PRN (10:18)
[2019-03-24] MEDS ORDERED: BISACODYL 5 MG TABLET.DR (FP) PO PRN (10:18)
[2019-03-24] MEDS ORDERED: SODIUM CHLORIDE 1,000 ML IV SCH (10:18)
[2019-03-24] MEDS ORDERED: METOPROLOL TARTRATE 25 MG TABLET (FP) PO ONE (10:30)
--- NOTE | 2019-03-24 10:39 | PN ---
Physical Exam: SUBJECTIVE: Patient seen and examined OBJECTIVE: Vital Signs Period Temp Pulse Resp BP Sys/Piper Pulse Ox Last 24 Hr 97.6 F-98.2 F 81-94 18-20 93-136/52-77 97 GENERAL: The patient is awake, alert, and fully oriented, in no acute distress. HEAD: Normal with no signs of trauma. EYES: PERRL, extraocular movements intact, sclera anicteric, conjunctiva clear. No ptosis. ENT: Ears normal, nares patent, oropharynx clear without exudates, moist mucous membranes. NECK: Trachea midline, full range of motion, supple. LUNGS: Breath sounds equal, clear to auscultation bilaterally, no wheezes, no crackles, no accessory muscle use. HEART: Regular rate and rhythm, S1, S2 without murmur, rub or gallop. ABDOMEN: Soft, nontender, nondistended, normoactive bowel sounds, no guarding, no rebound, no hepatosplenomegaly, no masses. EXTREMITIES: 2+ pulses, warm, well-perfused, no edema. NEUROLOGICAL: Cranial nerves II through XII grossly intact. Normal speech, gait not observed. PSYCH: Normal mood, normal affect. SKIN: Warm, dry, normal turgor, no rashes or lesions noted Laboratory Results - last 24 hr 03/24/19 03/24/19 05:30 05:30 WBC 8.4 RBC 3.16 L Hgb 8.0 L Hct 25.0 L MCV 79.2 L MCH 25.4 L MCHC 32.1 RDW 17.2 H Plt Count 541 H MPV 7.9 Absolute Neuts (auto) 4.5 Neutrophils % 53.8 Lymphocytes % 20.3 Monocytes % 6.6 Eosinophils % 18.3 H D Basophils % 1.0 Nucleated RBC % 0 Sodium 141 Potassium 3.5 Chloride 108 H Carbon Dioxide 26 Anion Gap 6 L BUN 8 Creatinine 0.3 L Est GFR (CKD-EPI)AfAm 134.45 Est GFR (CKD-EPI)NonAf 116.01 Random Glucose 77 Calcium 8.5 Active Medications Generic Name Dose Route Start Last Admin Trade Name Freq PRN Reason Stop Dose Admin Acetaminophen 650 mg 03/24/19 10:18 Tylenol - PO Q6H PRN PAIN LEVEL 6-10 Albuterol Sulfate 1 amp 03/24/19 14:00 Ventolin 0.083% Nebulizer Soln - NEB 0800,1400,2200 [facility] Amino Acids 30 ml 03/24/19 17:30 Prosource No Carb Liquid Pkt PO BID@0800,1730 [facility] Ascorbic Acid 250 mg 03/24/19 22:00 Vitamin C - PO BID [facility] Atorvastatin Calcium 20 mg 03/24/19 22:00 Lipitor - PO HS [facility] Baclofen 10 mg 03/24/19 14:00 Lioresal - PO TID [facility] Bisacodyl 10 mg 03/24/19 10:18 Dulcolax - PO HS PRN CONSTIPATION Collagenase 1 applic 03/25/19 10:00 Santyl - TP DAILY [facility] Protocol Enoxaparin Sodium 90 mg 03/24/19 22:00 Lovenox - SQ BID [facility] Ferrous Sulfate 325 mg 03/24/19 17:30 Feosol - PO BIDWM [facility] Sodium Chloride 1,000 mls @ 100 mls/hr 03/24/19 10:18 Normal Saline - IV ASDIR [facility] Piperacillin Sod/Tazobactam 50 mls @ 100 mls/hr 03/24/19 18:00 Sod 3.375 gm/ Dextrose IVPB Q8H-IV [facility] Protocol Metoprolol Succinate 25 mg 03/24/19 22:00 Toprol Xl - PO BID [facility] Metoprolol Tartrate 5 mg 03/24/19 10:18 Lopressor Injection - IVPUSH Q4H PRN TACHYCARDIA Multivitamins/Minerals/Vitamin C 1 tab 03/25/19 10:00 Tab-A-Vit - PO DAILY [facility] Oxycodone HCl 5 mg 03/24/19 10:18 Roxicodone - PO Q6H PRN PAIN LEVEL 7 - 10 Microbiology 03/19/19 12:00 Blood - Peripheral Venous Blood Culture - Preliminary NO GROWTH OBTAINED AFTER 96 HOURS, INCUBATION TO CONTINUE FOR 1 DAYS. 03/19/19 11:53 Blood - Peripheral Venous Blood Culture - Preliminary NO GROWTH OBTAINED AFTER 96 HOURS, INCUBATION TO CONTINUE FOR 1 DAYS. 03/19/19 12:00 Urine - Urine - Catheterized Urine Culture - Final Escherichia Coli Staphylococcus Aureus 03/21/19 15:35 Urine - Urine Hicks Urine Culture - Final NO GROWTH OBTAINED 03/19/19 12:15 Ulcer Gram Stain - Final 03/19/19 12:15 Ulcer Wound Culture - Final Staphylococcus Aureus Escherichia Coli Enterococcus Faecalis Streptococcus Viridans Imaging: - ECHO: lv function normal Assessment: 69 year old female with HTN, HLD, Afib, bed bound secondary to lower extremity paraplegia T6 injury s/p traumatic fall 2018, chronic hicks and chronic sacral wound. She presented to the ER after being advised by her home care nurse that her sacral wound is worsening and now with odor and drainage, she had a wound vac placed at home. Seen in ED with A fib with RVR 150's. Plan: 1. Sepsis secondary to osteomyelitis due to chronic sacral wound un stageable - Sepsis resolved - Per plastics will need flap closure debridement however planned and strict outpatient care will need to be in place prior to surgery. CM aware - Transition to oral per ID - On zosyn per ID - Wound culture polymicrobial - Wound care instruction placed, pack with end of kerlex and collagenase 2. Afib with RVR - Now controlled - As no imminent surgery, stop lovenox, transition to Eliquis, can hold for 48hr prior to planned procedure - Continue toprol xl 25mg BID 3. HTN - Controlled, cont meds 4. Anemia - Hgb improved today - Iron studies pending - Cont ferrous sulfate 5. UTI, Chronic indwelling hicks - UC with ecoli and mssa, repeat UC no growth - Changed monthly - On Zosyn per D 6. HLD - Cont statin Visit type - Emergency Visit Emergency Visit: Yes ED Registration Date: 03/19/19 Care time: The patient presented to the Emergency Department on the above date and was hospitalized for further evaluation of their emergent condition. - New Patient This patient is new to me today: Yes Date on this admission: 03/24/19 - Critical Care Critical Care patient: No
--- NOTE | 2019-03-24 10:40 | PN ---
Progress Note, Physician History of Present Illness: Remains in NSR. - Current Medication List Current Medications: Active Medications Acetaminophen (Tylenol -) 650 mg PO Q6H PRN PRN Reason: PAIN LEVEL 6-10 Albuterol Sulfate (Ventolin 0.083% Nebulizer Soln -) 1 amp NEB 0800,1400,2200 [facility] Amino Acids (Prosource No Carb Liquid Pkt) 30 ml PO BID@0800,1730 [facility] Ascorbic Acid (Vitamin C -) 250 mg PO BID [facility] Atorvastatin Calcium (Lipitor -) 20 mg PO HS [facility] Baclofen (Lioresal -) 10 mg PO TID [facility] Bisacodyl (Dulcolax -) 10 mg PO HS PRN PRN Reason: CONSTIPATION Collagenase (Santyl -) 1 applic TP DAILY [facility]; Protocol Enoxaparin Sodium (Lovenox -) 90 mg SQ BID [facility] Ferrous Sulfate (Feosol -) 325 mg PO BIDWM [facility] Sodium Chloride (Normal Saline -) 1,000 mls @ 100 mls/hr IV ASDIR [facility] Piperacillin Sod/Tazobactam (Sod 3.375 gm/ Dextrose) 50 mls @ 100 mls/hr IVPB Q8H-IV [facility]; Protocol Metoprolol Succinate (Toprol Xl -) 25 mg PO BID [facility] Metoprolol Tartrate (Lopressor Injection -) 5 mg IVPUSH Q4H PRN PRN Reason: TACHYCARDIA Multivitamins/Minerals/Vitamin C (Tab-A-Vit -) 1 tab PO DAILY [facility] Oxycodone HCl (Roxicodone -) 5 mg PO Q6H PRN PRN Reason: PAIN LEVEL 7 - 10 - Objective Vital Signs: Vital Signs Temperature 97.6 F 03/24/19 02:00 Pulse Rate 90 03/24/19 06:00 Respiratory Rate 20 03/24/19 06:00 Blood Pressure 136/77 03/24/19 06:00 O2 Sat by Pulse Oximetry (%) 97 03/23/19 21:00 Constitutional: Yes: No Distress, Calm Neck: Yes: Supple Cardiovascular: Yes: Regular Rate and Rhythm Respiratory: Yes: Regular, Diminished Gastrointestinal: Yes: Normal Bowel Sounds, Soft Edema: No Labs: CBC, BMP 03/24/19 05:30 03/24/19 05:30 INR, PTT INR 1.22 (0.83-1.09) H 03/20/19 05:30 - ....Imaging EKG: Report Reviewed (Tele: NSR) Problem List - Problems (1) Atrial fibrillation Code(s): I48.91 - UNSPECIFIED ATRIAL FIBRILLATION Qualifiers: Qualified Code(s): I48.0 - Paroxysmal atrial fibrillation (2) Hypercholesterolemia Code(s): E78.00 - PURE HYPERCHOLESTEROLEMIA, UNSPECIFIED (3) Hypertension Code(s): I10 - ESSENTIAL (PRIMARY) HYPERTENSION Qualifiers: Qualified Code(s): I10 - Essential (primary) hypertension (4) Osteomyelitis of vertebra, sacral and sacrococcygeal region Code(s): M46.28 - OSTEOMYELITIS OF VERTEBRA, SACRAL AND SACROCOCCYGEAL REGION (5) Paraplegia, incomplete Code(s): G82.22 - PARAPLEGIA, INCOMPLETE (6) Sacral decubitus ulcer, stage IV Code(s): L89.154 - PRESSURE ULCER OF SACRAL REGION, STAGE 4 (7) Anemia Code(s): D64.9 - ANEMIA, UNSPECIFIED Qualifiers: Qualified Code(s): D64.9 - Anemia, unspecified Assessment/Plan 03/22/2019 Echo: Normal LV and RV size and fxn LVEF 60-65%, normal atrial sizes , mild MR, TR RVSP 32 mmHg 1. Sacral decubiti wound infection, ? osteomyelitis 2. PAF currently in sinus rhythm, [id number] score of 3 3. HTN 4. Hypercholesterolemia 5. Paraplegia s/p fall 6. Anemia PLAN: 1. Continue LMWH 80 mg BID -> Eliquis 5 bid. Flap closure in future to hold NOAC 2 days prior and resume once post-op hemostasis achieved, continue empiric antibiotics. 2. Rate control with Metoprolol 25 mg BID and Lipitor 20 mg QHS 3. Echocardiography reviewed with patient 4. Discontinue telemtery and may transfer to floor care
[2019-03-24] MEDS: LACTOBACILLUS ACIDOPHILUS 1 TABLET PO SCH (12:29)
--- NOTE | 2019-03-24 13:03 | PN ---
Progress Note, Physician History of Present Illness: doing well no new issues no distress comfortable plastics noted - Current Medication List Current Medications: Active Medications Acetaminophen (Tylenol -) 650 mg PO Q6H PRN PRN Reason: PAIN LEVEL 6-10 Albuterol Sulfate (Ventolin 0.083% Nebulizer Soln -) 1 amp NEB 0800,1400,2200 [facility] Amino Acids (Prosource No Carb Liquid Pkt) 30 ml PO BID@0800,1730 [facility] Amoxicillin/Clavulanate Potassium (Augmentin - 875mg Tablet) 1 tab PO BID@0800, 1730 [facility] Apixaban (Eliquis -) 5 mg PO BID [facility] Ascorbic Acid (Vitamin C -) 250 mg PO BID [facility] Atorvastatin Calcium (Lipitor -) 20 mg PO HS [facility] Baclofen (Lioresal -) 10 mg PO TID [facility] Bisacodyl (Dulcolax -) 10 mg PO HS PRN PRN Reason: CONSTIPATION Collagenase (Santyl -) 1 applic TP DAILY [facility]; Protocol Ferrous Sulfate (Feosol -) 325 mg PO BIDWM [facility] Lactobacillus Acidophilus (Bacid -) 1 tab PO DAILY [facility] Stop: 03/29/19 11:14 Last Admin: 03/24/19 12:29 Dose: 1 tab Metoprolol Succinate (Toprol Xl -) 25 mg PO BID [facility] Metoprolol Tartrate (Lopressor Injection -) 5 mg IVPUSH Q4H PRN PRN Reason: TACHYCARDIA Multivitamins/Minerals/Vitamin C (Tab-A-Vit -) 1 tab PO DAILY [facility] Oxycodone HCl (Roxicodone -) 5 mg PO Q6H PRN PRN Reason: PAIN LEVEL 7 - 10 - Objective Vital Signs: Vital Signs Temperature 97.6 F 03/24/19 02:00 Pulse Rate 90 03/24/19 06:00 Respiratory Rate 20 03/24/19 06:00 Blood Pressure 136/77 03/24/19 06:00 O2 Sat by Pulse Oximetry (%) 97 03/23/19 21:00 Constitutional: Yes: No Distress, Calm Cardiovascular: Yes: Regular Rate and Rhythm Respiratory: Yes: Regular, CTA Bilaterally Gastrointestinal: Yes: Normal Bowel Sounds, Soft Musculoskeletal: Yes: WNL Extremities: Yes: WNL Wound/Incision: Yes: Dressing Dry and Intact Neurological: Yes: Alert, Oriented Psychiatric: Yes: Alert, Oriented Labs: CBC, BMP 03/24/19 05:30 03/24/19 05:30 INR, PTT INR 1.22 (0.83-1.09) H 03/20/19 05:30 Assessment/Plan Problem List - Problems (1) Sacral decubitus ulcer, stage IV Code(s): L89.154 - PRESSURE ULCER OF SACRAL REGION, STAGE 4 (2) Osteomyelitis of vertebra, sacral and sacrococcygeal region Code(s): M46.28 - OSTEOMYELITIS OF VERTEBRA, SACRAL AND SACROCOCCYGEAL REGION (3) Urinary tract infection associated with indwelling urethral catheter Code(s): T83.511A - I/I REACT D/T INDWELLING URETHRAL CATHETER, INIT; N39.0 - URINARY TRACT INFECTION, SITE NOT SPECIFIED Qualifiers: Encounter type: initial encounter Qualified Code(s): T83.511A - Infection and inflammatory reaction due to indwelling urethral catheter, initial encounter ; N39.0 - Urinary tract infection, site not specified (4) Fecal impaction in rectum Code(s): K56.41 - FECAL IMPACTION (5) Atrial fibrillation Code(s): I48.91 - UNSPECIFIED ATRIAL FIBRILLATION Qualifiers: Atrial fibrillation type: paroxysmal Qualified Code(s): I48.0 - Paroxysmal atrial fibrillation (6) Hypertension Code(s): I10 - ESSENTIAL (PRIMARY) HYPERTENSION Qualifiers: Hypertension type: essential hypertension Qualified Code(s): I10 - Essential (primary) hypertension (7) Hypercholesterolemia Code(s): E78.00 - PURE HYPERCHOLESTEROLEMIA, UNSPECIFIED (8) Asthma Code(s): J45.909 - UNSPECIFIED ASTHMA, UNCOMPLICATED Qualifiers: Asthma severity: mild Asthma persistence: intermittent Asthma complication type: uncomplicated Qualified Code(s): J45.20 - Mild intermittent asthma, uncomplicated (9) Other obesity due to excess calories Code(s): E66.09 - OTHER OBESITY DUE TO EXCESS CALORIES (10) Paraplegia, incomplete Code(s): G82.22 - PARAPLEGIA, INCOMPLETE plan will change to oral abx rest as per the team wound care patient doing well
[2019-03-24] MEDS: AMOX TR/POT CLAV 875MG/125MG TABLETS (FP) PO SCH (17:36)
[2019-03-24] MEDS ORDERED: PIPERACILLIN/TAZOB 3.375 GM 3.375 GM in DEXTROSE 5%-WATER - 50 ML IVPB SCH (18:00)
[2019-03-24] MEDS: ATORVASTATIN CA 20 MG TABLET (FP) PO SCH (21:37)
[2019-03-24] MEDS: APIXABAN 5 MG TABLET PO SCH (21:37)
[2019-03-24] MEDS ORDERED: ENOXAPARIN NA (PORCINE) 100 MG/1 ML DISP.SYRIN SQ SCH (22:00)
[2019-03-24 23:45] VITALS: BMI 35.3
[2019-03-25] MEDS: BACLOFEN 10 MG TABLET (FP) PO SCH ×3 (05:52→22:15)
[2019-03-25 07:09] LABS: EOS % 15.2 % (0-4.5); HEMATOCRIT 24.4 % (32.4-45.2); HEMOGLOBIN 7.9 GM/dL (10.7-15.3); LYMPH % 19.2 % (8-40); MCH 25.6 pg (25.7-33.7); MCHC 32.3 g/dl (32.0-36.0); MEAN CELL VOLUME 79.2 fl (80-96); MEAN PLT VOLUME 7.8 fl (7.5-11.1); MONO % 6.5 % (3.8-10.2); NEUT % 58.1 % (42.8-82.8); PLATELET COUNT 555 K/MM3 (134-434); RBC 3.08 M/mm3 (3.60-5.2); RDW 17.6 % (11.6-15.6); WHITE BLOOD COUNT 8.5 K/mm3 (4.0-10.0)
[2019-03-25 07:39] LABS: CALCIUM 8.3 mg/dL (8.5-10.1); CREATININE 0.2 mg/dL (0.55-1.3); POTASSIUM 3.5 mmol/L (3.5-5.1)
[2019-03-25 08:06] LABS: SERUM IRON SATURATION 15 % (15-55); TOTAL IRON BINDING CAPACITY 179 ug/dL (250-450); UIBC 153 ug/dL (118-369)
[2019-03-25] MEDS: ALBUTEROL SO4 0.083% IH SOL 2.5 MG/3 ML VIAL.NEB. NEB SCH ×3 (08:29→21:26)
[2019-03-25] MEDS: AMINO ACIDS/PROTEIN HYDROLYS 30 ML LIQUID.PKT PO SCH ×2 (08:34→17:38)
[2019-03-25] MEDS: AMOX TR/POT CLAV 875MG/125MG TABLETS (FP) PO SCH ×2 (08:34→17:38)
[2019-03-25] MEDS: FERROUS SO4 325 MG TABLET (FP) PO SCH ×2 (08:34→17:38)
--- NOTE | 2019-03-25 09:07 | PN ---
Progress Note, Physician History of Present Illness: stable no new issues - Current Medication List Current Medications: Active Medications Acetaminophen (Tylenol -) 650 mg PO Q6H PRN PRN Reason: PAIN LEVEL 6-10 Albuterol Sulfate (Ventolin 0.083% Nebulizer Soln -) 1 amp NEB 0800,1400,2200 [facility] Last Admin: 03/25/19 08:29 Dose: Not Given Amino Acids (Prosource No Carb Liquid Pkt) 30 ml PO BID@0800,1730 [facility] Last Admin: 03/25/19 08:34 Dose: 30 ml Amoxicillin/Clavulanate Potassium (Augmentin - 875mg Tablet) 1 tab PO BID@0800, 1730 [facility] Last Admin: 03/25/19 08:34 Dose: 1 tab Apixaban (Eliquis -) 5 mg PO BID [facility] Last Admin: 03/24/19 21:37 Dose: 5 mg Ascorbic Acid (Vitamin C -) 250 mg PO BID [facility] Last Admin: 03/24/19 21:37 Dose: 250 mg Atorvastatin Calcium (Lipitor -) 20 mg PO HS [facility] Last Admin: 03/24/19 21:37 Dose: 20 mg Baclofen (Lioresal -) 10 mg PO TID [facility] Last Admin: 03/25/19 05:52 Dose: 10 mg Bisacodyl (Dulcolax -) 10 mg PO HS PRN PRN Reason: CONSTIPATION Collagenase (Santyl -) 1 applic TP DAILY [facility]; Protocol Ferrous Sulfate (Feosol -) 325 mg PO BIDWM [facility] Last Admin: 03/25/19 08:34 Dose: 325 mg Lactobacillus Acidophilus (Bacid -) 1 tab PO DAILY [facility] Stop: 03/29/19 11:14 Last Admin: 03/24/19 12:29 Dose: 1 tab Metoprolol Succinate (Toprol Xl -) 25 mg PO BID [facility] Last Admin: 03/24/19 21:37 Dose: 25 mg Metoprolol Tartrate (Lopressor Injection -) 5 mg IVPUSH Q4H PRN PRN Reason: TACHYCARDIA Multivitamins/Minerals/Vitamin C (Tab-A-Vit -) 1 tab PO DAILY [facility] Oxycodone HCl (Roxicodone -) 5 mg PO Q6H PRN PRN Reason: PAIN LEVEL 7 - 10 - Objective Vital Signs: Vital Signs Temperature 98.5 F 03/25/19 05:51 Pulse Rate 89 03/25/19 05:51 Respiratory Rate 20 03/25/19 05:51 Blood Pressure 125/63 03/25/19 05:51 O2 Sat by Pulse Oximetry (%) 97 03/24/19 21:00 Constitutional: Yes: No Distress, Calm Cardiovascular: Yes: Regular Rate and Rhythm Respiratory: Yes: Regular, CTA Bilaterally Gastrointestinal: Yes: Normal Bowel Sounds, Soft Musculoskeletal: Yes: WNL Extremities: Yes: WNL Wound/Incision: Yes: Dressing Dry and Intact Neurological: Yes: Alert, Oriented Psychiatric: Yes: Alert, Oriented Labs: CBC, BMP 03/25/19 06:00 03/25/19 06:00 INR, PTT INR 1.22 (0.83-1.09) H 03/20/19 05:30 Assessment/Plan Problem List - Problems (1) Sacral decubitus ulcer, stage IV Code(s): L89.154 - PRESSURE ULCER OF SACRAL REGION, STAGE 4 (2) Osteomyelitis of vertebra, sacral and sacrococcygeal region Code(s): M46.28 - OSTEOMYELITIS OF VERTEBRA, SACRAL AND SACROCOCCYGEAL REGION (3) Urinary tract infection associated with indwelling urethral catheter Code(s): T83.511A - I/I REACT D/T INDWELLING URETHRAL CATHETER, INIT; N39.0 - URINARY TRACT INFECTION, SITE NOT SPECIFIED Qualifiers: Encounter type: initial encounter Qualified Code(s): T83.511A - Infection and inflammatory reaction due to indwelling urethral catheter, initial encounter ; N39.0 - Urinary tract infection, site not specified (4) Fecal impaction in rectum Code(s): K56.41 - FECAL IMPACTION (5) Atrial fibrillation Code(s): I48.91 - UNSPECIFIED ATRIAL FIBRILLATION Qualifiers: Atrial fibrillation type: paroxysmal Qualified Code(s): I48.0 - Paroxysmal atrial fibrillation (6) Hypertension Code(s): I10 - ESSENTIAL (PRIMARY) HYPERTENSION Qualifiers: Hypertension type: essential hypertension Qualified Code(s): I10 - Essential (primary) hypertension (7) Hypercholesterolemia Code(s): E78.00 - PURE HYPERCHOLESTEROLEMIA, UNSPECIFIED (8) Asthma Code(s): J45.909 - UNSPECIFIED ASTHMA, UNCOMPLICATED Qualifiers: Asthma severity: mild Asthma persistence: intermittent Asthma complication type: uncomplicated Qualified Code(s): J45.20 - Mild intermittent asthma, uncomplicated (9) Other obesity due to excess calories Code(s): E66.09 - OTHER OBESITY DUE TO EXCESS CALORIES (10) Paraplegia, incomplete Code(s): G82.22 - PARAPLEGIA, INCOMPLETE plan continue oral abx rest as per the team wound care patient doing well
[2019-03-25] MEDS: LACTOBACILLUS ACIDOPHILUS 1 TABLET PO SCH (10:16)
[2019-03-25] MEDS: metoPROLOL SUCCINATE 25 MG TAB.SR.24H (FP) PO SCH ×2 (10:16→22:30)
[2019-03-25] MEDS: COLLAGENASE CLOSTRIDIUM HIST. 30 GRAMS TUBE TP SCH (10:16)
[2019-03-25] MEDS ORDERED: PT OWN MED DRAWER 7, Y5N ONE (10:19)
[2019-03-25] MEDS: ASCORBIC ACID 250 MG TABLET (FP) PO SCH ×2 (10:20→22:15)
[2019-03-25] MEDS: MULTIVITAMINS (DAILY MVI) TABLET (FP) PO SCH (10:20)
[2019-03-25] MEDS: APIXABAN 5 MG TABLET PO SCH ×2 (10:20→22:15)
--- NOTE | 2019-03-25 11:07 | PN ---
Progress Note, Physician History of Present Illness: Remains in NSR. Resting in clinitron bed. - Current Medication List Current Medications: Active Medications Acetaminophen (Tylenol -) 650 mg PO Q6H PRN PRN Reason: PAIN LEVEL 6-10 Albuterol Sulfate (Ventolin 0.083% Nebulizer Soln -) 1 amp NEB 0800,1400,2200 [facility] Last Admin: 03/25/19 08:29 Dose: Not Given Amino Acids (Prosource No Carb Liquid Pkt) 30 ml PO BID@0800,1730 [facility] Last Admin: 03/25/19 08:34 Dose: 30 ml Amoxicillin/Clavulanate Potassium (Augmentin - 875mg Tablet) 1 tab PO BID@0800, 1730 [facility] Last Admin: 03/25/19 08:34 Dose: 1 tab Apixaban (Eliquis -) 5 mg PO BID [facility] Last Admin: 03/25/19 10:20 Dose: 5 mg Ascorbic Acid (Vitamin C -) 250 mg PO BID [facility] Last Admin: 03/25/19 10:20 Dose: 250 mg Atorvastatin Calcium (Lipitor -) 20 mg PO HS [facility] Last Admin: 03/24/19 21:37 Dose: 20 mg Baclofen (Lioresal -) 10 mg PO TID [facility] Last Admin: 03/25/19 05:52 Dose: 10 mg Bisacodyl (Dulcolax -) 10 mg PO HS PRN PRN Reason: CONSTIPATION Collagenase (Santyl -) 1 applic TP DAILY [facility]; Protocol Last Admin: 03/25/19 10:16 Dose: 1 applic Ferrous Sulfate (Feosol -) 325 mg PO BIDWM [facility] Last Admin: 03/25/19 08:34 Dose: 325 mg Lactobacillus Acidophilus (Bacid -) 1 tab PO DAILY [facility] Stop: 03/29/19 11:14 Last Admin: 03/25/19 10:16 Dose: 1 tab Metoprolol Succinate (Toprol Xl -) 25 mg PO BID [facility] Last Admin: 03/25/19 10:16 Dose: 25 mg Metoprolol Tartrate (Lopressor Injection -) 5 mg IVPUSH Q4H PRN PRN Reason: TACHYCARDIA Multivitamins/Minerals/Vitamin C (Tab-A-Vit -) 1 tab PO DAILY [facility] Last Admin: 03/25/19 10:20 Dose: 1 tab Oxycodone HCl (Roxicodone -) 5 mg PO Q6H PRN PRN Reason: PAIN LEVEL 7 - 10 - Objective Vital Signs: Vital Signs Temperature 98.5 F 03/25/19 05:51 Pulse Rate 89 03/25/19 05:51 Respiratory Rate 20 03/25/19 05:51 Blood Pressure 125/63 03/25/19 05:51 O2 Sat by Pulse Oximetry (%) 97 03/24/19 21:00 Constitutional: Yes: No Distress, Calm Neck: Yes: Supple Cardiovascular: Yes: Regular Rate and Rhythm Respiratory: Yes: Regular, CTA Bilaterally Gastrointestinal: Yes: Soft, Hypoactive Bowel Sounds Edema: No Labs: CBC, BMP 03/25/19 06:00 03/25/19 06:00 INR, PTT INR 1.22 (0.83-1.09) H 03/20/19 05:30 Problem List - Problems (1) Atrial fibrillation Code(s): I48.91 - UNSPECIFIED ATRIAL FIBRILLATION Qualifiers: Atrial fibrillation type: paroxysmal Qualified Code(s): I48.0 - Paroxysmal atrial fibrillation (2) Hypercholesterolemia Code(s): E78.00 - PURE HYPERCHOLESTEROLEMIA, UNSPECIFIED (3) Hypertension Code(s): I10 - ESSENTIAL (PRIMARY) HYPERTENSION Qualifiers: Hypertension type: essential hypertension Qualified Code(s): I10 - Essential (primary) hypertension (4) Osteomyelitis of vertebra, sacral and sacrococcygeal region Code(s): M46.28 - OSTEOMYELITIS OF VERTEBRA, SACRAL AND SACROCOCCYGEAL REGION (5) Paraplegia, incomplete Code(s): G82.22 - PARAPLEGIA, INCOMPLETE (6) Sacral decubitus ulcer, stage IV Code(s): L89.154 - PRESSURE ULCER OF SACRAL REGION, STAGE 4 (7) Anemia Code(s): D64.9 - ANEMIA, UNSPECIFIED Qualifiers: Anemia type: unspecified type Qualified Code(s): D64.9 - Anemia, unspecified Assessment/Plan 03/22/2019 Echo: Normal LV and RV size and fxn LVEF 60-65%, normal atrial sizes , mild MR, TR RVSP 32 mmHg 1. Sacral decubiti wound infection, ? osteomyelitis 2. PAF currently in sinus rhythm, [id number] score of 3 3. HTN 4. Hypercholesterolemia 5. Paraplegia s/p fall 6. Anemia PLAN: 1. Continue LMWH 80 mg BID -> Eliquis 5 bid. Flap closure in future to hold NOAC 2 days prior and resume once post-op hemostasis achieved, continue empiric oral antibiotics, wound care 2. Rate control with Metoprolol 25 mg BID and Lipitor 20 mg QHS
--- NOTE | 2019-03-25 14:39 | PN ---
Progress Note, Physician Chief Complaint: sacral wound History of Present Illness: No acute events overnight, no complaints. seen and examined at bedside. - Current Medication List Current Medications: Active Medications Acetaminophen (Tylenol -) 650 mg PO Q6H PRN PRN Reason: PAIN LEVEL 6-10 Albuterol Sulfate (Ventolin 0.083% Nebulizer Soln -) 1 amp NEB 0800,1400,2200 [facility] Last Admin: 03/25/19 08:29 Dose: Not Given Amino Acids (Prosource No Carb Liquid Pkt) 30 ml PO BID@0800,1730 [facility] Last Admin: 03/25/19 08:34 Dose: 30 ml Amoxicillin/Clavulanate Potassium (Augmentin - 875mg Tablet) 1 tab PO BID@0800, 1730 [facility] Last Admin: 03/25/19 08:34 Dose: 1 tab Apixaban (Eliquis -) 5 mg PO BID [facility] Last Admin: 03/25/19 10:20 Dose: 5 mg Ascorbic Acid (Vitamin C -) 250 mg PO BID [facility] Last Admin: 03/25/19 10:20 Dose: 250 mg Atorvastatin Calcium (Lipitor -) 20 mg PO HS [facility] Last Admin: 03/24/19 21:37 Dose: 20 mg Baclofen (Lioresal -) 10 mg PO TID [facility] Last Admin: 03/25/19 14:35 Dose: 10 mg Bisacodyl (Dulcolax -) 10 mg PO HS PRN PRN Reason: CONSTIPATION Collagenase (Santyl -) 1 applic TP DAILY [facility]; Protocol Last Admin: 03/25/19 10:16 Dose: 1 applic Ferrous Sulfate (Feosol -) 325 mg PO BIDWM [facility] Last Admin: 03/25/19 08:34 Dose: 325 mg Lactobacillus Acidophilus (Bacid -) 1 tab PO DAILY [facility] Stop: 03/29/19 11:14 Last Admin: 03/25/19 10:16 Dose: 1 tab Metoprolol Succinate (Toprol Xl -) 25 mg PO BID [facility] Last Admin: 03/25/19 10:16 Dose: 25 mg Metoprolol Tartrate (Lopressor Injection -) 5 mg IVPUSH Q4H PRN PRN Reason: TACHYCARDIA Multivitamins/Minerals/Vitamin C (Tab-A-Vit -) 1 tab PO DAILY [facility] Last Admin: 03/25/19 10:20 Dose: 1 tab Oxycodone HCl (Roxicodone -) 5 mg PO Q6H PRN PRN Reason: PAIN LEVEL 7 - 10 - Objective Vital Signs: Vital Signs Temperature 97.7 F 03/25/19 13:54 Pulse Rate 80 03/25/19 13:54 Respiratory Rate 18 03/25/19 13:54 Blood Pressure 98/56 L 03/25/19 13:54 O2 Sat by Pulse Oximetry (%) 97 03/25/19 09:00 Constitutional: Yes: Well Nourished, No Distress, Calm Cardiovascular: Yes: WNL, Regular Rate and Rhythm Respiratory: Yes: WNL, Regular, CTA Bilaterally Gastrointestinal: Yes: WNL, Normal Bowel Sounds, Soft, Abdomen, Obese Musculoskeletal: Yes: WNL Edema: No Integumentary: Yes: Other (wound unchanged) Labs: CBC, BMP 03/25/19 06:00 03/25/19 06:00 INR, PTT INR 1.22 (0.83-1.09) H 03/20/19 05:30 Problem List - Problems (1) Anemia Code(s): D64.9 - ANEMIA, UNSPECIFIED Qualifiers: Anemia type: unspecified type Qualified Code(s): D64.9 - Anemia, unspecified (2) Asthma Code(s): J45.909 - UNSPECIFIED ASTHMA, UNCOMPLICATED Qualifiers: Asthma severity: mild Asthma persistence: intermittent Asthma complication type: uncomplicated Qualified Code(s): J45.20 - Mild intermittent asthma, uncomplicated (3) Atrial fibrillation Code(s): I48.91 - UNSPECIFIED ATRIAL FIBRILLATION Qualifiers: Atrial fibrillation type: paroxysmal Qualified Code(s): I48.0 - Paroxysmal atrial fibrillation (4) Hypercholesterolemia Code(s): E78.00 - PURE HYPERCHOLESTEROLEMIA, UNSPECIFIED (5) Hypertension Code(s): I10 - ESSENTIAL (PRIMARY) HYPERTENSION Qualifiers: Hypertension type: essential hypertension Qualified Code(s): I10 - Essential (primary) hypertension (6) Osteomyelitis of vertebra, sacral and sacrococcygeal region Code(s): M46.28 - OSTEOMYELITIS OF VERTEBRA, SACRAL AND SACROCOCCYGEAL REGION Assessment/Plan Patient is a 69 year old female with HTN, HLD, bed bound secondary to lower extremity paraplegia T6 injury s/p fall, chronic hicks and chronic sacral wound. She presents to the ER after being advised by her home care nurse that her sacral wound is worsening and now with odor and drainage, she had a wound vac placed at home. Patient also reports worsening pain of this wound. Patient has been bed bound after a traumatic fall last year. History of atrial fibrillation in the past and was on blood thinners with injections (lovenox?). She was then transitioned to ASA 325mg BID and has been taking this medication since. Her vegetable cook is at [facility], but she is unsure of his name. In the ED she was noted to be with afib and RVR 150s. Sepsis secondary to osteomyelitis due to chronic sacral wound unstageable- paraplegic -Plastic surgery note reviewed, spoke with Dr. Ojeda today, he states he can do the surgery although she needs specialized tertiary care center for post-op. He is unsure of which places handle such things. Spoke with CM, will try to find a place that can handle post-op muscle flap repair in a paraplegic -transitioned to PO abx, ID following -wound care/dietary Afib with RVR -rates controlled -eliquis BID -BB -echo report reviewed, lv function normal -flap closure in future need to hold eliquis 2 days prior and resume once post- op hemostasis achieved HTN -bb with parameters Anemia -unsure of baseline, likely chronic in nature -cw ferrous sulfate -FOBT neg -monitor h/h Chronic hicks -changed monthly -UC with ecoli and mssa -on po abx HLD -on statin
[2019-03-25] MEDS: oxyCODONE HCL 5 MG TABLET PO PRN (19:06)
[2019-03-25] MEDS: ATORVASTATIN CA 20 MG TABLET (FP) PO SCH (22:15)
[2019-03-25] MEDS: ACETAMINOPHEN 325 MG TABLET (FP) PO PRN (22:15)
[2019-03-26] MEDS: BACLOFEN 10 MG TABLET (FP) PO SCH ×3 (06:43→22:41)
[2019-03-26] MEDS: ACETAMINOPHEN 325 MG TABLET (FP) PO PRN ×2 (06:43→22:44)
[2019-03-26 07:29] LABS: BASO % 1.1 % (0-2.0); EOS % 15.5 % (0-4.5); HEMATOCRIT 25.4 % (32.4-45.2); HEMOGLOBIN 8.1 GM/dL (10.7-15.3); LYMPH % 22.3 % (8-40); MCH 25.3 pg (25.7-33.7); MCHC 31.9 g/dl (32.0-36.0); MEAN CELL VOLUME 79.5 fl (80-96); MEAN PLT VOLUME 7.8 fl (7.5-11.1); MONO % 6.5 % (3.8-10.2); NEUT % 54.6 % (42.8-82.8); PLATELET COUNT 590 K/MM3 (134-434); RDW 17.6 % (11.6-15.6); WHITE BLOOD COUNT 8.5 K/mm3 (4.0-10.0)
[2019-03-26] MEDS: ALBUTEROL SO4 0.083% IH SOL 2.5 MG/3 ML VIAL.NEB. NEB SCH ×3 (07:35→21:30)
[2019-03-26 07:52] LABS: CALCIUM 8.7 mg/dL (8.5-10.1); CREATININE 0.2 mg/dL (0.55-1.3); POTASSIUM 4.1 mmol/L (3.5-5.1)
[2019-03-26] MEDS ORDERED: PT OWN MED DRAWER 7, Y5N ONE ×2 (09:09→15:45)
[2019-03-26] MEDS: MULTIVITAMINS (DAILY MVI) TABLET (FP) PO SCH (09:12)
[2019-03-26] MEDS: AMINO ACIDS/PROTEIN HYDROLYS 30 ML LIQUID.PKT PO SCH ×2 (09:12→17:32)
[2019-03-26] MEDS: APIXABAN 5 MG TABLET PO SCH ×2 (09:12→22:42)
[2019-03-26] MEDS: LACTOBACILLUS ACIDOPHILUS 1 TABLET PO SCH (09:13)
[2019-03-26] MEDS: FERROUS SO4 325 MG TABLET (FP) PO SCH ×2 (09:13→17:32)
[2019-03-26] MEDS: ASCORBIC ACID 250 MG TABLET (FP) PO SCH ×2 (09:13→22:42)
[2019-03-26] MEDS: AMOX TR/POT CLAV 875MG/125MG TABLETS (FP) PO SCH ×2 (09:13→17:32)
[2019-03-26] MEDS: COLLAGENASE CLOSTRIDIUM HIST. 30 GRAMS TUBE TP SCH (09:13)
--- NOTE | 2019-03-26 09:24 | PN ---
Progress Note, Physician History of Present Illness: Remains in NSR. Resting in clinitron bed. - Current Medication List Current Medications: Active Medications Acetaminophen (Tylenol -) 650 mg PO Q6H PRN PRN Reason: PAIN LEVEL 6-10 Last Admin: 03/26/19 06:43 Dose: 650 mg Albuterol Sulfate (Ventolin 0.083% Nebulizer Soln -) 1 amp NEB 0800,1400,2200 [facility] [place] Last Admin: 03/25/19 21:26 Dose: 1 amp Amino Acids (Prosource No Carb Liquid Pkt) 30 ml PO BID@0800,1730 [facility] [place] Last Admin: 03/26/19 09:12 Dose: 30 ml Amoxicillin/Clavulanate Potassium (Augmentin - 875mg Tablet) 1 tab PO BID@0800, 1730 [facility] [place] Last Admin: 03/26/19 09:13 Dose: 1 tab Apixaban (Eliquis -) 5 mg PO BID [facility] [place] Last Admin: 03/26/19 09:12 Dose: 5 mg Ascorbic Acid (Vitamin C -) 250 mg PO BID [facility] [place] Last Admin: 03/26/19 09:13 Dose: 250 mg Atorvastatin Calcium (Lipitor -) 20 mg PO HS [facility] [place] Last Admin: 03/25/19 22:15 Dose: 20 mg Baclofen (Lioresal -) 10 mg PO TID [facility] [place] Last Admin: 03/26/19 06:43 Dose: 10 mg Bisacodyl (Dulcolax -) 10 mg PO HS PRN PRN Reason: CONSTIPATION Collagenase (Santyl -) 1 applic TP DAILY [facility] [place]; Protocol Last Admin: 03/26/19 09:13 Dose: 1 applic Ferrous Sulfate (Feosol -) 325 mg PO BIDWM [facility] [place] Last Admin: 03/26/19 09:13 Dose: 325 mg Lactobacillus Acidophilus (Bacid -) 1 tab PO DAILY [facility] [place] Stop: 03/29/19 11:14 Last Admin: 03/26/19 09:13 Dose: 1 tab Metoprolol Succinate (Toprol Xl -) 25 mg PO BID [facility] [place] Last Admin: 03/25/19 22:30 Dose: Not Given Metoprolol Tartrate (Lopressor Injection -) 5 mg IVPUSH Q4H PRN PRN Reason: TACHYCARDIA Multivitamins/Minerals/Vitamin C (Tab-A-Vit -) 1 tab PO DAILY [facility] [place] Last Admin: 03/26/19 09:12 Dose: 1 tab Oxycodone HCl (Roxicodone -) 5 mg PO Q6H PRN PRN Reason: PAIN LEVEL 7 - 10 Last Admin: 03/25/19 19:06 Dose: 5 mg - Objective Vital Signs: Vital Signs Temperature 98.7 F 03/26/19 09:16 Pulse Rate 93 H 03/26/19 09:16 Respiratory Rate 18 03/26/19 09:16 Blood Pressure 101/51 L 03/26/19 09:16 O2 Sat by Pulse Oximetry (%) 99 03/25/19 21:00 Constitutional: Yes: No Distress, Calm Neck: Yes: Supple Cardiovascular: Yes: Regular Rate and Rhythm Respiratory: Yes: Regular, Diminished Gastrointestinal: Yes: Normal Bowel Sounds, Soft Edema: No Labs: CBC, BMP 03/26/19 06:00 03/26/19 06:00 INR, PTT INR 1.22 (0.83-1.09) H 03/20/19 05:30 Problem List - Problems (1) Atrial fibrillation Code(s): I48.91 - UNSPECIFIED ATRIAL FIBRILLATION Qualifiers: Atrial fibrillation type: paroxysmal Qualified Code(s): I48.0 - Paroxysmal atrial fibrillation (2) Hypercholesterolemia Code(s): E78.00 - PURE HYPERCHOLESTEROLEMIA, UNSPECIFIED (3) Hypertension Code(s): I10 - ESSENTIAL (PRIMARY) HYPERTENSION Qualifiers: Hypertension type: essential hypertension Qualified Code(s): I10 - Essential (primary) hypertension (4) Osteomyelitis of vertebra, sacral and sacrococcygeal region Code(s): M46.28 - OSTEOMYELITIS OF VERTEBRA, SACRAL AND SACROCOCCYGEAL REGION (5) Paraplegia, incomplete Code(s): G82.22 - PARAPLEGIA, INCOMPLETE (6) Sacral decubitus ulcer, stage IV Code(s): L89.154 - PRESSURE ULCER OF SACRAL REGION, STAGE 4 (7) Anemia Code(s): D64.9 - ANEMIA, UNSPECIFIED Qualifiers: Anemia type: unspecified type Qualified Code(s): D64.9 - Anemia, unspecified Assessment/Plan 03/22/2019 Echo: Normal LV and RV size and fxn LVEF 60-65%, normal atrial sizes , mild MR, TR RVSP 32 mmHg 1. Sacral decubiti wound infection, ? osteomyelitis 2. PAF with RVR currently in sinus rhythm, [id number] score of 3 3. HTN 4. Hypercholesterolemia 5. Paraplegia s/p T6 injury post fall 6. Anemia PLAN: 1. Continue Eliquis 5 bid. Flap closure in future to hold NOAC 2 days prior and resume once post-op hemostasis achieved, continue empiric oral antibiotics, wound care 2. Rate control with Metoprolol 25 mg BID and Lipitor 20 mg QHS 3. Chronic hicks management
[2019-03-26] MEDS: metoPROLOL SUCCINATE 25 MG TAB.SR.24H (FP) PO SCH ×2 (09:40→22:53)
--- NOTE | 2019-03-26 10:45 | PN ---
Physical Exam: SUBJECTIVE: Patient seen and examined. She has no complaints. OBJECTIVE: Vital Signs Period Temp Pulse Resp BP Sys/Piper Pulse Ox Last 24 Hr 97.7 F-98.7 F 80-93 16-18 95-122/51-88 99 GENERAL: The patient is awake, alert, and fully oriented, in no acute distress. LUNGS: Breath sounds equal, clear to auscultation bilaterally, no wheezes, no crackles, no accessory muscle use. HEART: Regular rate and rhythm, S1, S2 without murmur, rub or gallop. ABDOMEN: Obese, soft, nontender, nondistended, normoactive bowel sounds, no guarding, no rebound, no hepatosplenomegaly, no masses. EXTREMITIES: 2+ pulses, warm, well-perfused, no edema. Laboratory Results - last 24 hr 03/26/19 03/26/19 06:00 06:00 WBC 8.5 RBC 3.20 L Hgb 8.1 L Hct 25.4 L MCV 79.5 L MCH 25.3 L MCHC 31.9 L RDW 17.6 H Plt Count 590 H MPV 7.8 Absolute Neuts (auto) 4.7 Neutrophils % 54.6 Lymphocytes % 22.3 Monocytes % 6.5 Eosinophils % 15.5 H Basophils % 1.1 Nucleated RBC % 0 Sodium 139 Potassium 4.1 Chloride 108 H Carbon Dioxide 24 Anion Gap 7 L BUN 9 Creatinine 0.2 L Est GFR (CKD-EPI)AfAm 153.64 Est GFR (CKD-EPI)NonAf 132.56 Random Glucose 77 Calcium 8.7 Active Medications Generic Name Dose Route Start Last Admin Trade Name Romel PRN Reason Stop Dose Admin Acetaminophen 650 mg 03/24/19 10:18 03/26/19 06:43 Tylenol - PO 650 mg Q6H PRN Administration PAIN LEVEL 6-10 Albuterol Sulfate 1 amp 03/24/19 14:00 03/26/19 07:35 Ventolin 0.083% Nebulizer Soln - NEB 1 amp 0800,1400,2200 [facility] Administration Amino Acids 30 ml 03/24/19 17:30 03/26/19 09:12 Prosource No Carb Liquid Pkt PO 30 ml BID@0800,1730 [facility] Administration Amoxicillin/Clavulanate Potassium 1 tab 03/24/19 17:30 03/26/19 09:13 Augmentin - 875mg Tablet PO 1 tab BID@0800,1730 [facility] Administration Apixaban 5 mg 03/24/19 22:00 03/26/19 09:12 Eliquis - PO 5 mg BID [facility] Administration Ascorbic Acid 250 mg 03/24/19 22:00 03/26/19 09:13 Vitamin C - PO 250 mg BID [facility] Administration Atorvastatin Calcium 20 mg 03/24/19 22:00 03/25/19 22:15 Lipitor - PO 20 mg HS [facility] Administration Baclofen 10 mg 03/24/19 14:00 03/26/19 06:43 Lioresal - PO 10 mg TID [facility] Administration Bisacodyl 10 mg 03/24/19 10:18 Dulcolax - PO HS PRN CONSTIPATION Collagenase 1 applic 03/25/19 10:00 03/26/19 09:13 Santyl - TP 1 applic DAILY [facility] Administration Protocol Ferrous Sulfate 325 mg 03/24/19 17:30 03/26/19 09:13 Feosol - PO 325 mg BIDWM [facility] Administration Lactobacillus Acidophilus 1 tab 03/24/19 11:15 03/26/19 09:13 Bacid - PO 03/29/19 11:14 1 tab DAILY [facility] Administration Metoprolol Succinate 25 mg 03/26/19 09:30 03/26/19 09:40 Toprol Xl - PO Not Given BID [facility] Metoprolol Tartrate 5 mg 03/24/19 10:18 Lopressor Injection - IVPUSH Q4H PRN TACHYCARDIA Multivitamins/Minerals/Vitamin C 1 tab 03/25/19 10:00 03/26/19 09:12 Tab-A-Vit - PO 1 tab DAILY [facility] Administration Oxycodone HCl 5 mg 03/24/19 10:18 03/25/19 19:06 Roxicodone - PO 5 mg Q6H PRN Administration PAIN LEVEL 7 - 10 ASSESSMENT/PLAN: This is a 69 year old woman with a history of HTN, hyperlipidemia, PAF, paraplegia secondary to T6 injury, indwelling Stewart catheter, chronic sacral wound who presented to the ED because of worsening pain, drainage and odor of the wound. 1. Sepsis secondary to infected sacral pressure ulcer with osteomyelitis, E. coli/MSSA indwelling Stewart catheter infection - Plastic surgery recommends conservative management until flap closure can be done - Continue Augmentin, wound care with Santyl 2. Paraplegia secondary to T6 injury from fall - Continue Baclofen 3. Paroxysmal atrial fib with RVR - Currently in sinus rhythm - Continue Toprol XL, Eliquis 4. HTN - Continue Toprol XL 5. Hyperlipidemia - Continue Lipitor 6. Anemia, likely secondary to chronic illness - Hemoglobin stable - Continue ferrous sulfate 7. Obesity with BMI 34.6 8. Disposition - If patient is to have surgical treatment of ulcer, she will need to go to a tertiary care center where a paraplegic patient can be managed post- operatively. If she is not going to have surgical treatment, then conservative wound management can be continued at [place]. Visit type - Emergency Visit Emergency Visit: Yes ED Registration Date: 03/19/19 Care time: The patient presented to the Emergency Department on the above date and was hospitalized for further evaluation of their emergent condition. - New Patient This patient is new to me today: Yes Date on this admission: 03/26/19 - Critical Care Critical Care patient: No - Discharge Referral Referred to [facility] Med P.C.: No
--- NOTE | 2019-03-26 12:14 | PN ---
Progress Note, Physician History of Present Illness: stable no new issues - Current Medication List Current Medications: Active Medications Acetaminophen (Tylenol -) 650 mg PO Q6H PRN PRN Reason: PAIN LEVEL 6-10 Last Admin: 03/26/19 06:43 Dose: 650 mg Albuterol Sulfate (Ventolin 0.083% Nebulizer Soln -) 1 amp NEB 0800,1400,2200 [facility] Last Admin: 03/26/19 07:35 Dose: 1 amp Amino Acids (Prosource No Carb Liquid Pkt) 30 ml PO BID@0800,1730 [facility] Last Admin: 03/26/19 09:12 Dose: 30 ml Amoxicillin/Clavulanate Potassium (Augmentin - 875mg Tablet) 1 tab PO BID@0800, 1730 [facility] Last Admin: 03/26/19 09:13 Dose: 1 tab Apixaban (Eliquis -) 5 mg PO BID [facility] Last Admin: 03/26/19 09:12 Dose: 5 mg Ascorbic Acid (Vitamin C -) 250 mg PO BID [facility] Last Admin: 03/26/19 09:13 Dose: 250 mg Atorvastatin Calcium (Lipitor -) 20 mg PO HS [facility] Last Admin: 03/25/19 22:15 Dose: 20 mg Baclofen (Lioresal -) 20 mg PO TID [facility] Bisacodyl (Dulcolax -) 10 mg PO HS PRN PRN Reason: CONSTIPATION Collagenase (Santyl -) 1 applic TP DAILY [facility]; Protocol Last Admin: 03/26/19 09:13 Dose: 1 applic Ferrous Sulfate (Feosol -) 325 mg PO BIDWM [facility] Last Admin: 03/26/19 09:13 Dose: 325 mg Lactobacillus Acidophilus (Bacid -) 1 tab PO DAILY [facility] Stop: 03/29/19 11:14 Last Admin: 03/26/19 09:13 Dose: 1 tab Metoprolol Succinate (Toprol Xl -) 25 mg PO BID [facility] Last Admin: 03/26/19 09:40 Dose: Not Given Metoprolol Tartrate (Lopressor Injection -) 5 mg IVPUSH Q4H PRN PRN Reason: TACHYCARDIA Multivitamins/Minerals/Vitamin C (Tab-A-Vit -) 1 tab PO DAILY [facility] Last Admin: 03/26/19 09:12 Dose: 1 tab Oxycodone HCl (Roxicodone -) 5 mg PO Q6H PRN PRN Reason: PAIN LEVEL 7 - 10 Last Admin: 03/25/19 19:06 Dose: 5 mg - Objective Vital Signs: Vital Signs Temperature 98.7 F 03/26/19 09:16 Pulse Rate 93 H 03/26/19 09:16 Respiratory Rate 18 03/26/19 09:16 Blood Pressure 101/51 L 03/26/19 09:16 O2 Sat by Pulse Oximetry (%) 99 03/26/19 09:00 Constitutional: Yes: No Distress, Calm Cardiovascular: Yes: Regular Rate and Rhythm Gastrointestinal: Yes: Normal Bowel Sounds, Soft Musculoskeletal: Yes: WNL Extremities: Yes: WNL Wound/Incision: Yes: Clean/Dry Neurological: Yes: Alert, Oriented Psychiatric: Yes: Alert, Oriented Labs: CBC, BMP 03/26/19 06:00 03/26/19 06:00 INR, PTT INR 1.22 (0.83-1.09) H 03/20/19 05:30 Assessment/Plan Problem List - Problems (1) Sacral decubitus ulcer, stage IV Code(s): L89.154 - PRESSURE ULCER OF SACRAL REGION, STAGE 4 (2) Osteomyelitis of vertebra, sacral and sacrococcygeal region Code(s): M46.28 - OSTEOMYELITIS OF VERTEBRA, SACRAL AND SACROCOCCYGEAL REGION (3) Urinary tract infection associated with indwelling urethral catheter Code(s): T83.511A - I/I REACT D/T INDWELLING URETHRAL CATHETER, INIT; N39.0 - URINARY TRACT INFECTION, SITE NOT SPECIFIED Qualifiers: Encounter type: initial encounter Qualified Code(s): T83.511A - Infection and inflammatory reaction due to indwelling urethral catheter, initial encounter ; N39.0 - Urinary tract infection, site not specified (4) Fecal impaction in rectum Code(s): K56.41 - FECAL IMPACTION (5) Atrial fibrillation Code(s): I48.91 - UNSPECIFIED ATRIAL FIBRILLATION Qualifiers: Atrial fibrillation type: paroxysmal Qualified Code(s): I48.0 - Paroxysmal atrial fibrillation (6) Hypertension Code(s): I10 - ESSENTIAL (PRIMARY) HYPERTENSION Qualifiers: Hypertension type: essential hypertension Qualified Code(s): I10 - Essential (primary) hypertension (7) Hypercholesterolemia Code(s): E78.00 - PURE HYPERCHOLESTEROLEMIA, UNSPECIFIED (8) Asthma Code(s): J45.909 - UNSPECIFIED ASTHMA, UNCOMPLICATED Qualifiers: Asthma severity: mild Asthma persistence: intermittent Asthma complication type: uncomplicated Qualified Code(s): J45.20 - Mild intermittent asthma, uncomplicated (9) Other obesity due to excess calories Code(s): E66.09 - OTHER OBESITY DUE TO EXCESS CALORIES (10) Paraplegia, incomplete Code(s): G82.22 - PARAPLEGIA, INCOMPLETE plan continue oral abx rest as per the team wound care patient doing well
[2019-03-26] MEDS: oxyCODONE HCL 5 MG TABLET PO PRN (15:07)
[2019-03-26] MEDS: ATORVASTATIN CA 20 MG TABLET (FP) PO SCH (22:41)
[2019-03-27] MEDS: BACLOFEN 10 MG TABLET (FP) PO SCH ×2 (05:52→15:56)
[2019-03-27] MEDS: ACETAMINOPHEN 325 MG TABLET (FP) PO PRN (06:39)
[2019-03-27] MEDS: ALBUTEROL SO4 0.083% IH SOL 2.5 MG/3 ML VIAL.NEB. NEB SCH ×2 (07:40→14:20)
--- NOTE | 2019-03-27 08:04 | PN ---
Progress Note, Physician History of Present Illness: 69 year old woman with a history of HTN, hyperlipidemia, PAF, paraplegia secondary to T6 injury, indwelling Stewart catheter, chronic sacral wound who presented to the ED because of worsening pain, drainage and odor of the wound. - Current Medication List Current Medications: Active Medications Acetaminophen (Tylenol -) 650 mg PO Q6H PRN PRN Reason: PAIN LEVEL 6-10 Last Admin: 03/27/19 06:39 Dose: 650 mg Albuterol Sulfate (Ventolin 0.083% Nebulizer Soln -) 1 amp NEB 0800,1400,2200 [facility] Last Admin: 03/27/19 07:40 Dose: 1 amp Amino Acids (Prosource No Carb Liquid Pkt) 30 ml PO TIDCM [facility] Last Admin: 03/26/19 17:32 Dose: 30 ml Amoxicillin/Clavulanate Potassium (Augmentin - 875mg Tablet) 1 tab PO BID@0800, 1730 [facility] Last Admin: 03/26/19 17:32 Dose: 1 tab Apixaban (Eliquis -) 5 mg PO BID [facility] Last Admin: 03/26/19 22:42 Dose: 5 mg Ascorbic Acid (Vitamin C -) 250 mg PO BID [facility] Last Admin: 03/26/19 22:42 Dose: 250 mg Atorvastatin Calcium (Lipitor -) 20 mg PO HS [facility] Last Admin: 03/26/19 22:41 Dose: 20 mg Baclofen (Lioresal -) 20 mg PO TID [facility] Last Admin: 03/27/19 05:52 Dose: 20 mg Bisacodyl (Dulcolax -) 10 mg PO HS PRN PRN Reason: CONSTIPATION Last Admin: 03/26/19 22:42 Dose: 10 mg Collagenase (Santyl -) 1 applic TP DAILY [facility]; Protocol Last Admin: 03/26/19 09:13 Dose: 1 applic Ferrous Sulfate (Feosol -) 325 mg PO BIDWM [facility] Last Admin: 03/26/19 17:32 Dose: 325 mg Lactobacillus Acidophilus (Bacid -) 1 tab PO DAILY [facility] Stop: 03/29/19 11:14 Last Admin: 03/26/19 09:13 Dose: 1 tab Metoprolol Succinate (Toprol Xl -) 25 mg PO BID [facility] Last Admin: 03/26/19 22:53 Dose: Not Given Metoprolol Tartrate (Lopressor Injection -) 5 mg IVPUSH Q4H PRN PRN Reason: TACHYCARDIA Multivitamins/Minerals/Vitamin C (Tab-A-Vit -) 1 tab PO DAILY [facility] Last Admin: 03/26/19 09:12 Dose: 1 tab Oxycodone HCl (Roxicodone -) 5 mg PO Q6H PRN PRN Reason: PAIN LEVEL 7 - 10 Last Admin: 03/26/19 15:07 Dose: 5 mg - Objective Vital Signs: Vital Signs Temperature 97.6 F 03/27/19 05:31 Pulse Rate 81 03/27/19 05:31 Respiratory Rate 18 03/27/19 05:31 Blood Pressure 125/55 L 03/27/19 05:31 O2 Sat by Pulse Oximetry (%) 99 03/26/19 21:00 Labs: CBC, BMP 03/26/19 06:00 03/26/19 06:00 INR, PTT INR 1.22 (0.83-1.09) H 03/20/19 05:30 Problem List - Problems (1) Sacral decubitus ulcer, stage IV Code(s): L89.154 - PRESSURE ULCER OF SACRAL REGION, STAGE 4 (2) Atrial fibrillation Code(s): I48.91 - UNSPECIFIED ATRIAL FIBRILLATION Qualifiers: Atrial fibrillation type: paroxysmal Qualified Code(s): I48.0 - Paroxysmal atrial fibrillation (3) Hypertension Code(s): I10 - ESSENTIAL (PRIMARY) HYPERTENSION Qualifiers: Hypertension type: essential hypertension Qualified Code(s): I10 - Essential (primary) hypertension (4) Paraplegia Code(s): G82.20 - PARAPLEGIA, UNSPECIFIED (5) Paroxysmal atrial fibrillation with rapid ventricular response Code(s): I48.0 - PAROXYSMAL ATRIAL FIBRILLATION
[2019-03-27] MEDS: AMOX TR/POT CLAV 875MG/125MG TABLETS (FP) PO SCH ×2 (08:32→17:21)
[2019-03-27] MEDS: FERROUS SO4 325 MG TABLET (FP) PO SCH ×2 (08:32→17:21)
[2019-03-27] MEDS: AMINO ACIDS/PROTEIN HYDROLYS 30 ML LIQUID.PKT PO SCH ×3 (08:32→17:21)
[2019-03-27] MEDS: MULTIVITAMINS (DAILY MVI) TABLET (FP) PO SCH (10:22)
[2019-03-27] MEDS: APIXABAN 5 MG TABLET PO SCH (10:22)
[2019-03-27] MEDS: LACTOBACILLUS ACIDOPHILUS 1 TABLET PO SCH (10:22)
[2019-03-27] MEDS: COLLAGENASE CLOSTRIDIUM HIST. 30 GRAMS TUBE TP SCH (10:23)
[2019-03-27] MEDS: metoPROLOL SUCCINATE 25 MG TAB.SR.24H (FP) PO SCH (10:39)
--- NOTE | 2019-03-27 11:51 | DS ---
Physical Examination Vital Signs: Vital Signs Temperature 97.6 F 03/27/19 05:31 Pulse Rate 81 03/27/19 05:31 Respiratory Rate 18 03/27/19 05:31 Blood Pressure 125/55 L 03/27/19 05:31 O2 Sat by Pulse Oximetry (%) 99 03/26/19 21:00 GENERAL: Awake, alert, and fully oriented, in no acute distress. provides a fair history, but forgetful HEAD: Normal with no signs of trauma. EYES: Pupils equal, round and reactive to light, extraocular movements intact, sclera anicteric, conjunctiva clear. No lid lag. EARS, NOSE, THROAT: Ears normal, nares patent, oropharynx clear without exudates. Moist mucous membranes. NECK: Normal range of motion, supple without lymphadenopathy, JVD, or masses. LUNGS: Breath sounds equal, clear to auscultation bilaterally. No wheezes, and no crackles. No accessory muscle use. HEART: irregular rate, afib with rvr ABDOMEN: Soft, nontender, not distended, normoactive bowel sounds MUSCULOSKELETAL: Normal range of motion at all joints. No bony deformities or tenderness. No CVA tenderness. UPPER EXTREMITIES: No clubbing. No peripheral edema. LOWER EXTREMITIES: trace edema bilaterally NEUROLOGICAL: Normal speech. Normal gait. PSYCHIATRIC: Cooperative. Good eye contact. Appropriate mood and affect. SKIN: large unstageable sacral wound, round, mild odor, discoloration with deep tunneling. wound apx 8cm x 8cm with 4cm depth. exposed muscle and bone. Labs: CBC, BMP 03/26/19 06:00 03/26/19 06:00 Discharge Summary Reason For Visit: UTI; PRESSURE INJURY SACAL REGION; OSTEOMYELITIS Current Active Problems Anemia (Acute) Asthma (Acute) Atrial fibrillation (Acute) Fecal impaction in rectum (Acute) Hypercholesterolemia (Acute) Hypertension (Acute) Osteomyelitis (Acute) Osteomyelitis of vertebra, sacral and sacrococcygeal region (Acute) Other obesity due to excess calories (Acute) Paraplegia (Acute) Paraplegia, incomplete (Acute) Paroxysmal atrial fibrillation with rapid ventricular response (Acute) Sacral decubitus ulcer, stage IV (Acute) UTI (urinary tract infection) (Acute) Urinary tract infection associated with indwelling urethral catheter (Acute) Other Procedures: CT Pelvis; Lower sacral and Cocyx Cellulitis. Hospital Course: 69 yrs old F with H/O HTN, T2DM, T6 frcature Paraplegic admitted with Stage 4 sacral ulcer with Sacral OM with Sepsis wound grew multiple organism, MSSA, Ennterocci and E Colli, initially treated with IV Zosyn switched to Augmentin , patient also present with new onset Afib with RVR currently rate controlled on Apaxiban, Time Spent > 35 minutes Condition: Stable - Instructions Diet, Activity, Other Instructions: Low Salt Low Cholesterol, High Protein Diet Wound care as per wound care team Stop Augmentin after 7 days. Referrals: Harsh Ojeda MD [Staff Physician] - Disposition: [facility] - Home Medications Comprehensive Discharge Medication List: Ambulatory Orders Aspirin [ASA -] 325 mg PO DAILY 03/19/19 Atorvastatin Ca [Lipitor] 20 mg PO HS 03/19/19 Baclofen [Lioresal -] 10 mg PO TID 03/19/19 Metoprolol Succinate [Toprol Xl] 25 mg PO DAILY 03/19/19 Multivitamin [Multiple Vitamins] 1 each PO DAILY 03/19/19 Tizanidine HCl [Zanaflex] 0.5 mg PO HS 03/19/19 Acetaminophen [Tylenol .Regular Strength -] 650 mg PO Q6H PRN tablet 03/27/19 Albuterol 0.083% Nebulizer Cailin [Ventolin 0.083% Nebulizer Soln -] 1 amp NEB 0800 ,1400,2200 amp 03/27/19 Ascorbic Acid [Vitamin C -] 250 mg PO BID tablet 03/27/19 Collagenase Clostridium Hist. [Santyl -] 1 applic TP DAILY tube 03/27/19 Metoprolol Succinate [Toprol XL -] 25 mg PO BID tab.sr.24h 03/27/19 Multivitamins [Multivit ([facility] Formul[facility])] 1 tab PO DAILY tab 03/27/19 oxyCODONE HCL [Roxicodone -] 5 mg PO Q6H PRN 7 Days #20 tablet MDD 4 03/27/19
[2019-03-27] MEDS: ASCORBIC ACID 250 MG TABLET (FP) PO SCH (12:12)
[2019-03-27 14:47] VITALS: BP 110/56; PULSE 93; TEMP 98.6
--- NOTE | 2019-03-27 14:59 | PN ---
Progress Note, Physician History of Present Illness: Pt seen, events noted. She is alert, without distress. Tolerating antibiotics, without specific complaints. - Current Medication List Current Medications: Active Medications Acetaminophen (Tylenol -) 650 mg PO Q6H PRN PRN Reason: PAIN LEVEL 6-10 Last Admin: 03/27/19 06:39 Dose: 650 mg Albuterol Sulfate (Ventolin 0.083% Nebulizer Soln -) 1 amp NEB 0800,1400,2200 [facility] Last Admin: 03/27/19 07:40 Dose: 1 amp Amino Acids (Prosource No Carb Liquid Pkt) 30 ml PO TIDCM [facility] Last Admin: 03/27/19 12:12 Dose: 30 ml Amoxicillin/Clavulanate Potassium (Augmentin - 875mg Tablet) 1 tab PO BID@0800, 1730 [facility] Last Admin: 03/27/19 08:32 Dose: 1 tab Apixaban (Eliquis -) 5 mg PO BID [facility] Last Admin: 03/27/19 10:22 Dose: 5 mg Ascorbic Acid (Vitamin C -) 250 mg PO BID [facility] Last Admin: 03/27/19 12:12 Dose: 250 mg Atorvastatin Calcium (Lipitor -) 20 mg PO HS [facility] Last Admin: 03/26/19 22:41 Dose: 20 mg Baclofen (Lioresal -) 20 mg PO TID [facility] Last Admin: 03/27/19 05:52 Dose: 20 mg Bisacodyl (Dulcolax -) 10 mg PO HS PRN PRN Reason: CONSTIPATION Last Admin: 03/26/19 22:42 Dose: 10 mg Collagenase (Santyl -) 1 applic TP DAILY [facility]; Protocol Last Admin: 03/27/19 10:23 Dose: 1 applic Ferrous Sulfate (Feosol -) 325 mg PO BIDWM [facility] Last Admin: 03/27/19 08:32 Dose: 325 mg Lactobacillus Acidophilus (Bacid -) 1 tab PO DAILY [facility] Stop: 03/29/19 11:14 Last Admin: 03/27/19 10:22 Dose: 1 tab Metoprolol Succinate (Toprol Xl -) 25 mg PO BID [facility] Last Admin: 03/27/19 10:39 Dose: Not Given Metoprolol Tartrate (Lopressor Injection -) 5 mg IVPUSH Q4H PRN PRN Reason: TACHYCARDIA Multivitamins/Minerals/Vitamin C (Tab-A-Vit -) 1 tab PO DAILY [facility] Last Admin: 03/27/19 10:22 Dose: 1 tab Oxycodone HCl (Roxicodone -) 5 mg PO Q6H PRN PRN Reason: PAIN LEVEL 7 - 10 Last Admin: 03/26/19 15:07 Dose: 5 mg - Objective Vital Signs: Vital Signs Temperature 98.6 F 03/27/19 14:45 Pulse Rate 93 H 03/27/19 14:45 Respiratory Rate 18 03/27/19 14:45 Blood Pressure 110/56 L 03/27/19 14:45 O2 Sat by Pulse Oximetry (%) 99 03/27/19 09:00 Constitutional: Yes: No Distress, Calm Cardiovascular: Yes: Regular Rate and Rhythm Respiratory: Yes: Regular Gastrointestinal: Yes: Normal Bowel Sounds, Soft, Abdomen, Obese Wound/Incision: Yes: Other (Sacral ST IV DU without malodor/purulence) Labs: CBC, BMP 03/26/19 06:00 03/26/19 06:00 INR, PTT INR 1.22 (0.83-1.09) H 03/20/19 05:30 Microbiology 03/19/19 12:00 Blood - Peripheral Venous Blood Culture - Final NO GROWTH AFTER 5 DAYS INCUBATION 03/19/19 11:53 Blood - Peripheral Venous Blood Culture - Final NO GROWTH AFTER 5 DAYS INCUBATION 03/19/19 12:00 Urine - Urine - Catheterized Urine Culture - Final Escherichia Coli Staphylococcus Aureus 03/21/19 15:35 Urine - Urine Stewart Urine Culture - Final NO GROWTH OBTAINED 03/19/19 12:15 Ulcer Gram Stain - Final 03/19/19 12:15 Ulcer Wound Culture - Final Staphylococcus Aureus Escherichia Coli Enterococcus Faecalis Streptococcus Viridans Problem List - Problems (1) Anemia Code(s): D64.9 - ANEMIA, UNSPECIFIED Qualifiers: Anemia type: unspecified type Qualified Code(s): D64.9 - Anemia, unspecified (2) Asthma Code(s): J45.909 - UNSPECIFIED ASTHMA, UNCOMPLICATED Qualifiers: Asthma severity: mild Asthma persistence: intermittent Asthma complication type: uncomplicated Qualified Code(s): J45.20 - Mild intermittent asthma, uncomplicated (3) Atrial fibrillation Code(s): I48.91 - UNSPECIFIED ATRIAL FIBRILLATION Qualifiers: Atrial fibrillation type: paroxysmal Qualified Code(s): I48.0 - Paroxysmal atrial fibrillation (4) Hypercholesterolemia Code(s): E78.00 - PURE HYPERCHOLESTEROLEMIA, UNSPECIFIED (5) Hypertension Code(s): I10 - ESSENTIAL (PRIMARY) HYPERTENSION Qualifiers: Hypertension type: essential hypertension Qualified Code(s): I10 - Essential (primary) hypertension (6) Osteomyelitis Code(s): M86.9 - OSTEOMYELITIS, UNSPECIFIED (7) Paraplegia Code(s): G82.20 - PARAPLEGIA, UNSPECIFIED (8) Sacral decubitus ulcer, stage IV Code(s): L89.154 - PRESSURE ULCER OF SACRAL REGION, STAGE 4 (9) UTI (urinary tract infection) Code(s): N39.0 - URINARY TRACT INFECTION, SITE NOT SPECIFIED Assessment/Plan Sacral ST IV DU/OM - s/p multiple courses of IV antibiotic treatment UTI Chronic indwelling Stewart Paraplegia AFIB HTN ALD Obesity -- continue Augmentin x 7 more days for now with close monitoring -- continue wound care -- frequent turning
[2019-03-27] MEDS: oxyCODONE HCL 5 MG TABLET PO PRN (17:21)
== END 2019-03-27 17:45 | DRG 871 ==
LOC: JER 11:09 → JERBED 13:21 → J4W 20:12 → J7W 03-24 18:00
PROVIDERS: ADMIT Internal Medicine; ATTEND Internal Medicine
DX: A41.01 Sepsis due to Methicillin susceptible Staphylococcus aureus (principal); L89.154 Pressure ulcer of sacral region, stage 4; T83.511A Infection and inflammatory reaction due to indwelling urethral catheter, initial encounter; M46.28 Osteomyelitis of vertebra, sacral and sacrococcygeal region; G82.22 Paraplegia, incomplete; I10 Essential (primary) hypertension; E78.5 Hyperlipidemia, unspecified; Z74.01 Bed confinement status; E66.9 Obesity, unspecified; J45.909 Unspecified asthma, uncomplicated; Y84.6 Urinary catheterization as the cause of abnormal reaction of the patient, or of later complication, without mention of misadventure at the time of the procedure; I48.0 Paroxysmal atrial fibrillation; K56.41 Fecal impaction; D47.3 Essential (hemorrhagic) thrombocythemia; D63.8 Anemia in other chronic diseases classified elsewhere; Z68.34 Body mass index [BMI] 34.0-34.9, adult; B96.20 Unspecified Escherichia coli [E. coli] as the cause of diseases classified elsewhere
CPT/HCPCS: 36415; 71045-TC-FY; 72193-TC; 80048; 80053; 81003; 82272; 82728; 83036; 83540; 83550; 83605; 83735; 84132; 84443; 84484; 85025; 85027; 85610; 85730; 86850; 86900; 86901; 87040; 87070; 87077; 87086; 87186; 87205; 93005; 93010; 93306-TC; 94640; 97161-GP; 99285-25; E0194; J0131; J0475; J7030

== ENCOUNTER 2021-05-08 10:04 | Inpatient (IN) | payer OTHER, MEDICARE ==
[2021-05-08 11:21] VITALS: BMI 43.9
[2021-05-08 12:35] LABS: BASO % 0.5 % (0-2.0); EOS % 0.5 % (0-4.5); HEMOGLOBIN 10.2 GM/dL (10.7-15.3); INR 1.94 (0.83-1.09); LYMPH % 15.4 % (8-40); MCH 24.5 pg (25.7-33.7); MCHC 31.8 g/dl (32.0-36.0); MEAN PLT VOLUME 7.7 fl (7.5-11.1); MONO % 8.5 % (3.8-10.2); NEUT % 75.1 % (42.8-82.8); PLATELET COUNT 560 10^3/uL (134-434); RBC 4.15 M/mm3 (3.60-5.2); RDW 19.3 % (11.6-15.6)
[2021-05-08 12:38] LABS: ACTIVATED PTT 40.1 SECONDS (25.2-36.5)
[2021-05-08 12:46] LABS: CHLORIDE 96 mmol/L (98-107); SODIUM 131 mmol/L (136-145)
[2021-05-08 12:48] LABS: CALCIUM 8.5 mg/dL (8.5-10.1)
[2021-05-08 12:49] LABS: ANION GAP 8 MMOL/L (8-16); BLOOD UREA NITROGEN 11.1 mg/dL (7-18); CO2 28 mmol/L (21-32); GLUCOSE,RANDOM 91 mg/dL (74-106)
[2021-05-08 12:52] LABS: CREATININE 0.3 mg/dL (0.55-1.3); SGOT/AST 13 U/L (15-37); SGPT/ALT 15 U/L (13-61)
[2021-05-08 12:54] LABS: BILIRUBIN,TOTAL 0.2 mg/dL (0.2-1); TOT PROT 5.3 g/dl (6.4-8.2)
[2021-05-08 12:55] LABS: ALK PHOS 149 U/L (45-117)
[2021-05-08 12:57] LABS: N-TERMINAL BNP 1789.8 pg/ml (5-125)
[2021-05-08] MEDS ORDERED: SODIUM CHLORIDE 0.9% 500 ML INFUS.BAG IV ONE ×2 (12:59→16:19)
[2021-05-08 15:51] LABS: EPI CELLS 2 /uL (0-25.1); HYALINE CASTS 4 /uL (0-3.1); URINE APPEARANCE CLEAR; URINE BACTERIA 1811 /uL (0-1359); URINE BILIRUBIN NEGATIVE (NEGATIVE); URINE COLOR YELLOW; URINE GLUCOSE (UA) NEGATIVE (NEGATIVE); URINE KETONE NEGATIVE (NEGATIVE); URINE LEUK ESTERASE 2+ (NEGATIVE); URINE NITRITE NEGATIVE (NEGATIVE); URINE PROTEIN TRACE (NEGATIVE); URINE RBC 112 /uL (0-23.9); URINE UROBILINOGEN 0.2 mg/dL (0.2-1.0); URINE WBC 348 /uL (0-25.8)
[2021-05-08] MEDS ORDERED: PIPERACILLIN/TAZOB 3.375 GM 3.375 GM in DEXTROSE 5%-WATER - 50 ML IVPB ONE (18:12)
[2021-05-08] MEDS ORDERED: VANCOMYCIN 1 GM in D5W (PRE-DOCKED) 1,000 MG/250 ML IVPB ONE (18:12)
[2021-05-08] MEDS ORDERED: VANCOMYCIN 1 GRAM (PRE-DOCKED) 1,000 MG/250 ML BAG IVPB ONE (18:25)
[2021-05-08] MEDS ORDERED: PIPERACILLIN/TAZOB 3.375 GM 3.375 GM/50 ML BAG IVPB ONE (18:26)
[2021-05-08] MEDS ORDERED: MORPHINE SULFATE 2 MG/ML VIAL IVPUSH PRN (19:14)
[2021-05-08] MEDS ORDERED: SODIUM CHLORIDE 1,000 ML IV STA (19:14)
[2021-05-08] MEDS: SODIUM CHLORIDE 1,000 ML IV SCH (21:15)
[2021-05-08] MEDS: ALBUTEROL SO4 0.083% IH SOL 2.5 MG/3 ML VIAL.NEB. NEB SCH (22:50)
[2021-05-08] MEDS: ACETAMINOPHEN 325 MG TABLET (FP) PO PRN (23:33)
[2021-05-08] MEDS: ASCORBIC ACID 250 MG TABLET (FP) PO SCH (23:35)
[2021-05-09] MEDS ORDERED: DEXTROSE 5%-WATER - 50 ML IVPB ONE ×3 (00:32→17:06)
[2021-05-09] MEDS ORDERED: PIPERACILLIN/TAZOBACTAM 3.375 GM VIAL IVPB ONE ×3 (00:32→17:06)
[2021-05-09] MEDS: PIPERACILLIN/TAZOB 3.375 GM 3.375 GM in DEXTROSE 5%-WATER - 50 ML IVPB SCH ×3 (01:11→17:43)
[2021-05-09] MEDS ORDERED: PIPERACILLIN/TAZOB 3.375 GM 3.375 GM in DEXTROSE 5%-WATER - 50 ML IVPB SCH (02:00)
[2021-05-09] MEDS ORDERED: PIPERACILLIN/TAZOB 2.25 GM 2.25 GM in DEXTROSE 5%-WATER - 50 ML IVPB SCH (02:00)
[2021-05-09] MEDS ORDERED: VANCOMYCIN 1 GM in D5W (PRE-DOCKED) 1,000 MG/250 ML IVPB SCH (07:00)
[2021-05-09] MEDS: ALBUTEROL SO4 0.083% IH SOL 2.5 MG/3 ML VIAL.NEB. NEB SCH ×3 (07:37→21:29)
[2021-05-09 08:50] LABS: BASO % 0.9 % (0-2.0); EOS % 2.9 % (0-4.5); HEMATOCRIT 32.3 % (32.4-45.2); HEMOGLOBIN 10.2 GM/dL (10.7-15.3); LYMPH % 21.9 % (8-40); MCH 24.7 pg (25.7-33.7); MCHC 31.7 g/dl (32.0-36.0); MEAN CELL VOLUME 77.8 fl (80-96); MEAN PLT VOLUME 7.7 fl (7.5-11.1); MONO % 7.1 % (3.8-10.2); NEUT % 67.2 % (42.8-82.8); PLATELET COUNT 519 10^3/uL (134-434); RBC 4.15 M/mm3 (3.60-5.2); RDW 19.6 % (11.6-15.6); WHITE BLOOD COUNT 8.5 K/mm3 (4.0-10.0)
[2021-05-09 09:15] LABS: ALBUMIN 1.9 g/dl (3.4-5.0); MAGNESIUM 1.6 mg/dL (1.8-2.4)
[2021-05-09 09:16] LABS: BLOOD UREA NITROGEN 8.7 mg/dL (7-18); CALCIUM 8.5 mg/dL (8.5-10.1)
[2021-05-09 09:18] LABS: CREATININE 0.2 mg/dL (0.55-1.3)
[2021-05-09 09:19] LABS: PHOSPHOROUS 3.1 mg/dL (2.5-4.9)
[2021-05-09 09:23] LABS: BILIRUBIN,TOTAL 0.4 mg/dL (0.2-1)
[2021-05-09] MEDS: ASCORBIC ACID 250 MG TABLET (FP) PO SCH ×2 (10:16→22:38)
[2021-05-09] MEDS: metoPROLOL SUCCINATE 25 MG TAB.SR.24H (FP) PO SCH (10:16)
[2021-05-09] MEDS ORDERED: MAGNESIUM SULF 50% (8.12 MEQ/2 ML-1 GM VIAL) IVPB ONE (11:37)
[2021-05-09] MEDS: VANCOMYCIN 1 GM in D5W (PRE-DOCKED) 1,000 MG/250 ML IVPB SCH (16:56)
[2021-05-09] MEDS: SODIUM CHLORIDE 1,000 ML IV SCH (22:37)
[2021-05-09] MEDS: BACLOFEN 10 MG TABLET (FP) PO SCH (22:38)
[2021-05-09] MEDS: TIZANIDINE HCL 2 MG TABLET PO SCH (22:38)
[2021-05-09] MEDS: ACETAMINOPHEN 325 MG TABLET (FP) PO PRN (22:44)
[2021-05-10] MEDS ORDERED: PIPERACILLIN/TAZOBACTAM 3.375 GM VIAL IVPB ONE ×3 (00:35→17:08)
[2021-05-10] MEDS ORDERED: DEXTROSE 5%-WATER - 50 ML IVPB ONE ×3 (00:36→17:09)
[2021-05-10] MEDS: PIPERACILLIN/TAZOB 3.375 GM 3.375 GM in DEXTROSE 5%-WATER - 50 ML IVPB SCH ×3 (01:47→18:03)
[2021-05-10] MEDS: BACLOFEN 10 MG TABLET (FP) PO SCH ×2 (06:23→21:13)
[2021-05-10 07:30] LABS: BASO % 1.9 % (0-2.0); EOS % 3.6 % (0-4.5); HEMATOCRIT 28.5 % (32.4-45.2); HEMOGLOBIN 9.2 GM/dL (10.7-15.3); LYMPH % 22.3 % (8-40); MCH 25.1 pg (25.7-33.7); MCHC 32.2 g/dl (32.0-36.0); MEAN CELL VOLUME 77.9 fl (80-96); MEAN PLT VOLUME 7.8 fl (7.5-11.1); MONO % 10.1 % (3.8-10.2); NEUT % 62.1 % (42.8-82.8); PLATELET COUNT 461 10^3/uL (134-434); RBC 3.66 M/mm3 (3.60-5.2); RDW 19.6 % (11.6-15.6); WHITE BLOOD COUNT 7.5 K/mm3 (4.0-10.0)
[2021-05-10 07:39] LABS: CHLORIDE 102 mmol/L (98-107); SODIUM 136 mmol/L (136-145)
[2021-05-10] MEDS: ALBUTEROL SO4 0.083% IH SOL 2.5 MG/3 ML VIAL.NEB. NEB SCH ×3 (07:40→22:10)
[2021-05-10 07:41] LABS: ALBUMIN 1.6 g/dl (3.4-5.0); CALCIUM 8.1 mg/dL (8.5-10.1)
[2021-05-10 07:43] LABS: ANION GAP 7 MMOL/L (8-16); BLOOD UREA NITROGEN 7.5 mg/dL (7-18); CO2 27 mmol/L (21-32); GLUCOSE,RANDOM 80 mg/dL (74-106)
[2021-05-10 07:45] LABS: CREATININE < 0.2 mg/dL (0.55-1.3); PHOSPHOROUS 3.2 mg/dL (2.5-4.9); SGOT/AST 18 U/L (15-37); SGPT/ALT 16 U/L (13-61)
[2021-05-10 07:47] LABS: BILIRUBIN,TOTAL 0.2 mg/dL (0.2-1); TOT PROT 4.4 g/dl (6.4-8.2)
[2021-05-10 07:49] LABS: ALK PHOS 122 U/L (45-117)
[2021-05-10] MEDS: COLLAGENASE CLOSTRIDIUM HIST. 30 GRAMS TUBE TP SCH (09:30)
[2021-05-10] MEDS: BUDESONIDE/FORMETEROL FUMARATE 160/4.5 mcg INHALER IH SCH ×2 (11:26→21:15)
[2021-05-10] MEDS: ASCORBIC ACID 250 MG TABLET (FP) PO SCH ×2 (11:27→21:13)
[2021-05-10] MEDS: metoPROLOL SUCCINATE 25 MG TAB.SR.24H (FP) PO SCH (11:27)
[2021-05-10] MEDS: TIZANIDINE HCL 2 MG TABLET PO SCH ×2 (11:27→21:14)
[2021-05-10] MEDS: ACETAMINOPHEN 325 MG TABLET (FP) PO PRN (11:28)
[2021-05-10] MEDS: SODIUM CHLORIDE 1,000 ML IV SCH (21:14)
[2021-05-11] MEDS ORDERED: DEXTROSE 5%-WATER - 50 ML IVPB ONE ×3 (02:39→17:00)
[2021-05-11] MEDS ORDERED: PIPERACILLIN/TAZOBACTAM 3.375 GM VIAL IVPB ONE ×3 (02:39→17:00)
[2021-05-11] MEDS: PIPERACILLIN/TAZOB 3.375 GM 3.375 GM in DEXTROSE 5%-WATER - 50 ML IVPB SCH ×3 (03:10→17:42)
[2021-05-11] MEDS: BACLOFEN 10 MG TABLET (FP) PO SCH ×2 (06:52→22:03)
[2021-05-11] MEDS: ALBUTEROL SO4 0.083% IH SOL 2.5 MG/3 ML VIAL.NEB. NEB SCH ×3 (07:20→21:03)
[2021-05-11 07:39] LABS: CALCIUM 8.3 mg/dL (8.5-10.1)
[2021-05-11 07:41] LABS: BLOOD UREA NITROGEN 6.6 mg/dL (7-18)
[2021-05-11 07:43] LABS: CREATININE 0.2 mg/dL (0.55-1.3)
[2021-05-11 07:47] LABS: HEMOGLOBIN 9.7 GM/dL (10.7-15.3); MCH 24.6 pg (25.7-33.7); MCHC 31.2 g/dl (32.0-36.0); MEAN CELL VOLUME 78.7 fl (80-96); MEAN PLT VOLUME 7.9 fl (7.5-11.1); PLATELET COUNT 492 10^3/uL (134-434); RBC 3.93 M/mm3 (3.60-5.2); RDW 19.9 % (11.6-15.6); WHITE BLOOD COUNT 8.1 K/mm3 (4.0-10.0)
[2021-05-11] MEDS ORDERED: ERGOCALCIFEROL (VIT D2) 50,000 UNIT (1.25 MG) CAPSULE PO SCH (10:00)
[2021-05-11] MEDS: TIZANIDINE HCL 2 MG TABLET PO SCH ×2 (10:39→22:04)
[2021-05-11] MEDS: metoPROLOL SUCCINATE 25 MG TAB.SR.24H (FP) PO SCH (10:39)
[2021-05-11] MEDS: ASCORBIC ACID 250 MG TABLET (FP) PO SCH ×2 (10:39→22:03)
[2021-05-11] MEDS: BUDESONIDE/FORMETEROL FUMARATE 160/4.5 mcg INHALER IH SCH ×2 (10:41→22:05)
[2021-05-11] MEDS: AMINO ACIDS/PROTEIN HYDROLYS 30 ML LIQUID.PKT PO SCH (10:41)
[2021-05-11] MEDS: COLLAGENASE CLOSTRIDIUM HIST. 30 GRAMS TUBE TP SCH (12:53)
[2021-05-11] MEDS ORDERED: PT OWN MED DRAWER 7, Y5N ONE ×2 (21:56→21:57)
[2021-05-11] MEDS: SODIUM CHLORIDE 1,000 ML IV SCH (22:03)
[2021-05-12] MEDS ORDERED: PIPERACILLIN/TAZOBACTAM 3.375 GM VIAL IVPB ONE ×3 (02:24→17:11)
[2021-05-12] MEDS ORDERED: DEXTROSE 5%-WATER - 50 ML IVPB ONE ×3 (02:24→17:11)
[2021-05-12] MEDS: PIPERACILLIN/TAZOB 3.375 GM 3.375 GM in DEXTROSE 5%-WATER - 50 ML IVPB SCH ×3 (02:53→17:44)
[2021-05-12] MEDS ORDERED: MAG HYDROX/AL HYDROX/SIMETH 30 ML UNIT-DOSE CUP PO PRN (05:46)
[2021-05-12] MEDS ORDERED: SIMETHICONE 80 MG TAB.CHEW (FP) PO PRN (05:49)
[2021-05-12] MEDS: ALBUTEROL SO4 0.083% IH SOL 2.5 MG/3 ML VIAL.NEB. NEB SCH ×3 (07:46→21:20)
[2021-05-12] MEDS ORDERED: PT OWN MED DRAWER 7, Y5N ONE (09:55)
[2021-05-12] MEDS: BACLOFEN 10 MG TABLET (FP) PO SCH ×2 (10:17→22:49)
[2021-05-12] MEDS: ENOXAPARIN NA (PORCINE) 40 MG/0.4 ML DISP.SYRIN SQ SCH (10:17)
[2021-05-12] MEDS: metoPROLOL SUCCINATE 25 MG TAB.SR.24H (FP) PO SCH (10:18)
[2021-05-12] MEDS: AMINO ACIDS/PROTEIN HYDROLYS 30 ML LIQUID.PKT PO SCH (10:18)
[2021-05-12] MEDS: ASCORBIC ACID 250 MG TABLET (FP) PO SCH ×2 (10:18→22:50)
[2021-05-12] MEDS: TIZANIDINE HCL 2 MG TABLET PO SCH ×2 (10:24→22:50)
[2021-05-12] MEDS: BUDESONIDE/FORMETEROL FUMARATE 160/4.5 mcg INHALER IH SCH ×2 (10:24→22:49)
[2021-05-12] MEDS: COLLAGENASE CLOSTRIDIUM HIST. 30 GRAMS TUBE TP SCH (10:27)
[2021-05-12] MEDS: ACETAMINOPHEN 325 MG TABLET (FP) PO PRN (14:53)
[2021-05-13] MEDS ORDERED: PIPERACILLIN/TAZOBACTAM 3.375 GM VIAL IVPB ONE ×2 (00:47→09:59)
[2021-05-13] MEDS ORDERED: DEXTROSE 5%-WATER - 50 ML IVPB ONE ×2 (00:48→10:00)
[2021-05-13] MEDS: PIPERACILLIN/TAZOB 3.375 GM 3.375 GM in DEXTROSE 5%-WATER - 50 ML IVPB SCH ×2 (03:44→10:23)
[2021-05-13] MEDS: BACLOFEN 10 MG TABLET (FP) PO SCH ×2 (08:00→21:17)
[2021-05-13] MEDS ORDERED: ALBUTEROL SO4 0.083% IH SOL 2.5 MG/3 ML VIAL.NEB. NEB PRN (08:43)
[2021-05-13] MEDS: ALBUTEROL SO4 0.083% IH SOL 2.5 MG/3 ML VIAL.NEB. NEB SCH (08:52)
[2021-05-13] MEDS ORDERED: PT OWN MED DRAWER 7, Y5N ONE ×2 (10:03→20:17)
[2021-05-13] MEDS: AMINO ACIDS/PROTEIN HYDROLYS 30 ML LIQUID.PKT PO SCH (10:22)
[2021-05-13] MEDS: ASCORBIC ACID 250 MG TABLET (FP) PO SCH ×2 (10:22→21:18)
[2021-05-13] MEDS: metoPROLOL SUCCINATE 25 MG TAB.SR.24H (FP) PO SCH (10:22)
[2021-05-13] MEDS: ENOXAPARIN NA (PORCINE) 40 MG/0.4 ML DISP.SYRIN SQ SCH (10:23)
[2021-05-13] MEDS: TIZANIDINE HCL 2 MG TABLET PO SCH ×2 (10:25→21:18)
[2021-05-13] MEDS: BUDESONIDE/FORMETEROL FUMARATE 160/4.5 mcg INHALER IH SCH ×2 (10:26→21:21)
[2021-05-13] MEDS: COLLAGENASE CLOSTRIDIUM HIST. 30 GRAMS TUBE TP SCH (10:26)
[2021-05-13] MEDS: LORATADINE 10 MG TABLET PO SCH (14:42)
[2021-05-13] MEDS: AMOX TR/POT CLAV 875MG/125MG TABLETS (FP) PO SCH (17:03)
[2021-05-14] MEDS ORDERED: levoFLOXacin 500 MG, levoFLOXacin 250 MG PO SCH (06:00)
[2021-05-14] MEDS: BACLOFEN 10 MG TABLET (FP) PO SCH (06:24)
[2021-05-14 06:32] VITALS: TEMP 98.1
[2021-05-14] MEDS ORDERED: PT OWN MED DRAWER 7, Y5N ONE (09:10)
[2021-05-14] MEDS ORDERED: APIXABAN 5 MG TABLET PO SCH (10:00)
[2021-05-14] MEDS: ACETAMINOPHEN 325 MG TABLET (FP) PO PRN (10:16)
[2021-05-14] MEDS: metoPROLOL SUCCINATE 25 MG TAB.SR.24H (FP) PO SCH (10:16)
[2021-05-14] MEDS: ASCORBIC ACID 250 MG TABLET (FP) PO SCH (10:16)
[2021-05-14] MEDS: LORATADINE 10 MG TABLET PO SCH (10:17)
[2021-05-14] MEDS: AMINO ACIDS/PROTEIN HYDROLYS 30 ML LIQUID.PKT PO SCH (10:17)
[2021-05-14] MEDS: AMOX TR/POT CLAV 875MG/125MG TABLETS (FP) PO SCH (10:17)
[2021-05-14] MEDS: COLLAGENASE CLOSTRIDIUM HIST. 30 GRAMS TUBE TP SCH (10:17)
[2021-05-14] MEDS: TIZANIDINE HCL 2 MG TABLET PO SCH (10:18)
[2021-05-14] MEDS: BUDESONIDE/FORMETEROL FUMARATE 160/4.5 mcg INHALER IH SCH (10:18)
[2021-05-14 11:15] VITALS: BP 88/53; PULSE 95
== END 2021-05-14 13:04 | disposition home health service (06) | DRG 871 ==
LOC: JER 10:04 → JERBED 14:54 → J4W 20:51
PROVIDERS: ATTEND Student in an Organized Health Care Education/Training Program
DX: A41.89 Other specified sepsis (principal); L89.154 Pressure ulcer of sacral region, stage 4; Z68.41 Body mass index [BMI] 40.0-44.9, adult; E87.1 Hypo-osmolality and hyponatremia; N39.0 Urinary tract infection, site not specified; E66.01 Morbid (severe) obesity due to excess calories; I10 Essential (primary) hypertension; E78.5 Hyperlipidemia, unspecified; I48.0 Paroxysmal atrial fibrillation; D47.3 Essential (hemorrhagic) thrombocythemia; E77.8 Other disorders of glycoprotein metabolism; E88.09 Other disorders of plasma-protein metabolism, not elsewhere classified; I95.9 Hypotension, unspecified; D72.829 Elevated white blood cell count, unspecified; B96.1 Klebsiella pneumoniae [K. pneumoniae] as the cause of diseases classified elsewhere; B95.2 Enterococcus as the cause of diseases classified elsewhere
CPT/HCPCS: 36415; 71045-TC-FY; 80048; 80053; 80061; 81003; 82550; 83036; 83605; 83721; 83735; 83880; 84100; 84484; 85025; 85027; 85610; 85651; 85730; 87040; 87070; 87077; 87086; 87186; 87205; 93005; 93010; 94640; 99285-25; C9803; E0186; J0475; U0003; U0005

== ENCOUNTER 2021-05-30 10:12 | Inpatient (IN) | payer OTHER, MEDICARE ==
[2021-05-30 11:21] LABS: BASO % 0.9 % (0-2.0); EOS % 1.3 % (0-4.5); HEMOGLOBIN 10.9 GM/dL (10.7-15.3); LYMPH % 23.1 % (8-40); MCH 25.1 pg (25.7-33.7); MCHC 32.1 g/dl (32.0-36.0); MEAN PLT VOLUME 7.8 fl (7.5-11.1); MONO % 6.2 % (3.8-10.2); NEUT % 68.5 % (42.8-82.8); PLATELET COUNT 806 10^3/uL (134-434); RBC 4.36 M/mm3 (3.60-5.2); RDW 18.8 % (11.6-15.6); WHITE BLOOD COUNT 10.5 K/mm3 (4.0-10.0)
[2021-05-30 11:26] LABS: VENOUS BASE EXCESS 3.2 mmol/L (-2-2); VENOUS O2 SATURATION 85.3 % (70-80); VENOUS PH 7.389 (7.310-7.410)
[2021-05-30 11:32] LABS: INR 1.74 (0.83-1.09); PROTHROMBIN TIME (PATIENT) 20.7 SEC (9.7-13.0)
[2021-05-30 11:35] LABS: ACTIVATED PTT 36.8 SECONDS (25.2-36.5)
[2021-05-30 11:46] LABS: CHLORIDE 92 mmol/L (98-107); SODIUM 127 mmol/L (136-145)
[2021-05-30 11:48] LABS: CALCIUM 7.9 mg/dL (8.5-10.1)
[2021-05-30 11:49] LABS: ALBUMIN 1.8 g/dl (3.4-5.0); ANION GAP 7 MMOL/L (8-16); BLOOD UREA NITROGEN 14.9 mg/dL (7-18); CO2 28 mmol/L (21-32); GLUCOSE,RANDOM 85 mg/dL (74-106)
[2021-05-30 11:52] LABS: CREATININE 0.3 mg/dL (0.55-1.3); SGOT/AST 50 U/L (15-37); SGPT/ALT 20 U/L (13-61)
[2021-05-30 11:53] LABS: BILIRUBIN,TOTAL 0.4 mg/dL (0.2-1)
[2021-05-30 11:54] LABS: TOT PROT 5.2 g/dl (6.4-8.2)
[2021-05-30 11:55] LABS: ALK PHOS 156 U/L (45-117)
[2021-05-30 12:00] LABS: ANISOCYTOSIS 1+; MACROCYTOSIS 0; PLATELET ESTIMATE INCREASED
[2021-05-30 15:59] LABS: URINE APPEARANCE Clear; URINE BILIRUBIN Negative (NEGATIVE); URINE COLOR Yellow; URINE GLUCOSE (UA) Negative (NEGATIVE); URINE KETONE Negative (NEGATIVE); URINE LEUK ESTERASE 2+ (NEGATIVE); URINE NITRITE Negative (NEGATIVE); URINE PROTEIN Negative (NEGATIVE); URINE UROBILINOGEN 0.2 mg/dL (0.2-1.0)
[2021-05-30] MEDS ORDERED: CEFTRIAXONE 1 GM in DEXTROSE 5%-WATER - 50 ML IVPB ONE (16:45)
[2021-05-30] MEDS ORDERED: CEFTRIAXONE 1 GM/50 ML BAG ONE (17:13)
[2021-05-30] MEDS: PIPERACILLIN/TAZOB 4.5 GM 4.5 GM in DEXTROSE 5%-WATER 100 ML IVPB SCH (18:55)
[2021-05-30] MEDS ORDERED: PIPERACILLIN/TAZOB 4.5 GM 4.5 GM/100 ML BAG IVPB ONE (18:55)
[2021-05-30] MEDS: BACLOFEN 10 MG TABLET (FP) PO SCH (21:43)
[2021-05-30] MEDS: ATORVASTATIN CA 20 MG TABLET (FP) PO SCH (21:43)
[2021-05-30] MEDS: APIXABAN 5 MG TABLET PO SCH (21:44)
[2021-05-30] MEDS ORDERED: ENOXAPARIN NA (PORCINE) 40 MG/0.4 ML DISP.SYRIN SQ SCH (22:00)
[2021-05-30] MEDS: BUDESONIDE/FORMETEROL FUMARATE 160/4.5 mcg INHALER IH SCH (22:15)
[2021-05-31] MEDS ORDERED: PIPERACILLIN/TAZOBACTAM 4.5 GM VIAL IVPB ONE ×2 (00:41→08:31)
[2021-05-31] MEDS ORDERED: DEXTROSE 5%-WATER 100 ML IVPB ONE ×2 (00:42→08:32)
[2021-05-31] MEDS: PIPERACILLIN/TAZOB 4.5 GM 4.5 GM in DEXTROSE 5%-WATER 100 ML IVPB SCH ×3 (01:45→13:03)
[2021-05-31 08:11] LABS: BASO % 0.4 % (0-2.0); EOS % 0.7 % (0-4.5); HEMATOCRIT 36.8 % (32.4-45.2); HEMOGLOBIN 11.8 GM/dL (10.7-15.3); LYMPH % 13.2 % (8-40); MCH 25.2 pg (25.7-33.7); MCHC 31.9 g/dl (32.0-36.0); MEAN CELL VOLUME 78.9 fl (80-96); MONO % 6.4 % (3.8-10.2); NEUT % 79.3 % (42.8-82.8); PLATELET COUNT 857 10^3/uL (134-434); RBC 4.67 M/mm3 (3.60-5.2); RDW 18.6 % (11.6-15.6); WHITE BLOOD COUNT 10.5 K/mm3 (4.0-10.0)
[2021-05-31 08:36] LABS: BLOOD UREA NITROGEN 12.2 mg/dL (7-18)
[2021-05-31 08:37] LABS: CALCIUM 8.8 mg/dL (8.5-10.1)
[2021-05-31 08:38] LABS: MAGNESIUM 1.8 mg/dL (1.8-2.4)
[2021-05-31 08:39] LABS: CREATININE 0.3 mg/dL (0.55-1.3)
[2021-05-31 08:40] LABS: BILIRUBIN,TOTAL 0.4 mg/dL (0.2-1); TOT PROT 5.3 g/dl (6.4-8.2)
[2021-05-31] MEDS: ACETAMINOPHEN 325 MG TABLET (FP) PO PRN (08:41)
[2021-05-31] MEDS: BACLOFEN 10 MG TABLET (FP) PO SCH ×2 (09:43→22:05)
[2021-05-31] MEDS: APIXABAN 5 MG TABLET PO SCH ×2 (09:43→22:05)
[2021-05-31] MEDS: BUDESONIDE/FORMETEROL FUMARATE 160/4.5 mcg INHALER IH SCH ×2 (09:44→22:05)
[2021-05-31] MEDS ORDERED: ENOXAPARIN NA (PORCINE) 40 MG/0.4 ML DISP.SYRIN SQ SCH (10:00)
[2021-05-31] MEDS ORDERED: FUROSEMIDE 40 MG TABLET (FP) PO ONE (10:02)
[2021-05-31] MEDS ORDERED: cefTRIAXone SODIUM 1 GM VIAL ONE (12:10)
[2021-05-31] MEDS ORDERED: DEXTROSE 5%-WATER - 50 ML IVPB ONE (12:10)
[2021-05-31] MEDS: CEFTRIAXONE 1 GM in DEXTROSE 5%-WATER - 50 ML IVPB SCH (12:14)
[2021-05-31] MEDS: SODIUM HYPOCHLORITE 0.25%- 473 ML BULK BOTTLE TP SCH ×2 (12:14→22:07)
[2021-05-31] MEDS ORDERED: traMADol HCL 50 MG TABLET PO ONE ×3 (14:37→15:00)
[2021-05-31] MEDS ORDERED: INSULIN (LEVEMIR) 100 UNITS/ML UNITS SQ ONE (18:29)
[2021-05-31] MEDS ORDERED: INSULIN (NOVOLOG) ASPART 100 UNITS/ML 10ML VIAL ONE (18:30)
[2021-05-31] MEDS ORDERED: LORATADINE 10 MG TABLET PO ONE (19:00)
[2021-05-31] MEDS: TIZANIDINE HCL 2 MG TABLET PO SCH (22:05)
[2021-05-31] MEDS: ATORVASTATIN CA 20 MG TABLET (FP) PO SCH (22:05)
[2021-06-01] MEDS: ACETAMINOPHEN 325 MG TABLET (FP) PO PRN ×2 (07:02→21:05)
[2021-06-01] MEDS: ONDANSETRON 4 MG/2 ML VIAL IVPUSH PRN ×2 (08:01→17:44)
[2021-06-01] MEDS ORDERED: cefTRIAXone SODIUM 1 GM VIAL ONE (08:54)
[2021-06-01] MEDS ORDERED: DEXTROSE 5%-WATER - 50 ML IVPB ONE (08:54)
[2021-06-01 09:13] LABS: BASO % 0.3 % (0-2.0); HEMATOCRIT 34.2 % (32.4-45.2); HEMOGLOBIN 10.9 GM/dL (10.7-15.3); LYMPH % 15.5 % (8-40); MCH 25.2 pg (25.7-33.7); MEAN CELL VOLUME 78.8 fl (80-96); MEAN PLT VOLUME 7.4 fl (7.5-11.1); MONO % 5.7 % (3.8-10.2); NEUT % 77.5 % (42.8-82.8); PLATELET COUNT 761 10^3/uL (134-434); RBC 4.34 M/mm3 (3.60-5.2); RDW 18.5 % (11.6-15.6); WHITE BLOOD COUNT 10.2 K/mm3 (4.0-10.0)
[2021-06-01] MEDS: TIZANIDINE HCL 2 MG TABLET PO SCH ×2 (09:13→21:05)
[2021-06-01] MEDS: metoPROLOL SUCCINATE 25 MG TAB.SR.24H (FP) PO SCH (09:14)
[2021-06-01] MEDS: SODIUM HYPOCHLORITE 0.25%- 473 ML BULK BOTTLE TP SCH ×2 (09:14→21:07)
[2021-06-01] MEDS: BUDESONIDE/FORMETEROL FUMARATE 160/4.5 mcg INHALER IH SCH ×2 (09:14→21:07)
[2021-06-01] MEDS: APIXABAN 5 MG TABLET PO SCH ×2 (09:14→21:05)
[2021-06-01] MEDS: BACLOFEN 10 MG TABLET (FP) PO SCH ×2 (09:14→21:06)
[2021-06-01] MEDS: CEFTRIAXONE 1 GM in DEXTROSE 5%-WATER - 50 ML IVPB SCH (09:14)
[2021-06-01 09:32] LABS: ALBUMIN 1.9 g/dl (3.4-5.0); CALCIUM 8.2 mg/dL (8.5-10.1)
[2021-06-01 09:33] LABS: BLOOD UREA NITROGEN 9.9 mg/dL (7-18); MAGNESIUM 1.5 mg/dL (1.8-2.4)
[2021-06-01 09:36] LABS: CREATININE 0.4 mg/dL (0.55-1.3); PHOSPHOROUS 3.8 mg/dL (2.5-4.9)
[2021-06-01 09:37] LABS: BILIRUBIN,TOTAL 0.3 mg/dL (0.2-1)
[2021-06-01] MEDS ORDERED: FUROSEMIDE 40 MG/4 ML INJECTABLE VIAL IVPUSH ONE (10:52)
[2021-06-01] MEDS ORDERED: POTASSIUM CHLORIDE ORAL LIQUID 20 MEQ/15 ML PO ONE ×2 (13:30→17:03)
[2021-06-01] MEDS: AMINO ACIDS/PROTEIN HYDROLYS 30 ML LIQUID.PKT PO SCH (16:39)
[2021-06-01] MEDS ORDERED: MAGNESIUM OXIDE 400 MG TABLET (FP) PO ONE (17:03)
[2021-06-01] MEDS ORDERED: POTASSIUM CHLORIDE TABS 20 MEQ TABLET.ER (FP) PO ONE (17:09)
[2021-06-01] MEDS: LORATADINE 10 MG TABLET PO PRN (17:33)
[2021-06-01] MEDS: ATORVASTATIN CA 20 MG TABLET (FP) PO SCH (21:06)
[2021-06-02] MEDS: ACETAMINOPHEN 325 MG TABLET (FP) PO PRN (05:38)
[2021-06-02 08:33] LABS: BASO % 0.2 % (0-2.0); EOS % 0.9 % (0-4.5); HEMATOCRIT 33.3 % (32.4-45.2); HEMOGLOBIN 10.5 GM/dL (10.7-15.3); LYMPH % 18.7 % (8-40); MCH 24.7 pg (25.7-33.7); MCHC 31.6 g/dl (32.0-36.0); MEAN CELL VOLUME 78.4 fl (80-96); MONO % 5.9 % (3.8-10.2); NEUT % 74.3 % (42.8-82.8); PLATELET COUNT 743 10^3/uL (134-434); RBC 4.24 M/mm3 (3.60-5.2); RDW 18.6 % (11.6-15.6); WHITE BLOOD COUNT 10.5 K/mm3 (4.0-10.0)
[2021-06-02] MEDS ORDERED: cefTRIAXone SODIUM 1 GM VIAL ONE (08:38)
[2021-06-02] MEDS ORDERED: DEXTROSE 5%-WATER - 50 ML IVPB ONE (08:38)
[2021-06-02 08:57] LABS: ALBUMIN 1.9 g/dl (3.4-5.0); BLOOD UREA NITROGEN 16.7 mg/dL (7-18); CALCIUM 7.9 mg/dL (8.5-10.1); MAGNESIUM 2.1 mg/dL (1.8-2.4)
[2021-06-02 09:00] LABS: CREATININE 0.4 mg/dL (0.55-1.3)
[2021-06-02] MEDS: CEFTRIAXONE 1 GM in DEXTROSE 5%-WATER - 50 ML IVPB SCH (09:00)
[2021-06-02] MEDS: AMINO ACIDS/PROTEIN HYDROLYS 30 ML LIQUID.PKT PO SCH ×3 (09:00→17:41)
[2021-06-02 09:01] LABS: BILIRUBIN,TOTAL 0.4 mg/dL (0.2-1); PHOSPHOROUS 3.5 mg/dL (2.5-4.9)
[2021-06-02] MEDS: BUDESONIDE/FORMETEROL FUMARATE 160/4.5 mcg INHALER IH SCH ×2 (11:13→21:20)
[2021-06-02] MEDS: SODIUM HYPOCHLORITE 0.25%- 473 ML BULK BOTTLE TP SCH ×2 (11:28→21:29)
[2021-06-02] MEDS: APIXABAN 5 MG TABLET PO SCH ×2 (11:28→21:17)
[2021-06-02] MEDS: BACLOFEN 10 MG TABLET (FP) PO SCH (11:29)
[2021-06-02] MEDS ORDERED: PT OWN MED DRAWER 7, Y5N ONE (11:39)
[2021-06-02] MEDS: TIZANIDINE HCL 2 MG TABLET PO SCH ×2 (11:40→21:17)
[2021-06-02] MEDS: metoPROLOL SUCCINATE 25 MG TAB.SR.24H (FP) PO SCH (12:21)
[2021-06-02] MEDS ORDERED: SODIUM CHLORIDE 250 ML IV ONE (17:45)
[2021-06-02] MEDS: ATORVASTATIN CA 20 MG TABLET (FP) PO SCH (21:17)
[2021-06-03 07:16] LABS: BASO % 0.6 % (0-2.0); EOS % 0.9 % (0-4.5); HEMATOCRIT 35.9 % (32.4-45.2); HEMOGLOBIN 11.3 GM/dL (10.7-15.3); LYMPH % 13.4 % (8-40); MCH 24.7 pg (25.7-33.7); MCHC 31.5 g/dl (32.0-36.0); MEAN CELL VOLUME 78.6 fl (80-96); MEAN PLT VOLUME 7.8 fl (7.5-11.1); NEUT % 79.1 % (42.8-82.8); PLATELET COUNT 807 10^3/uL (134-434); RBC 4.56 M/mm3 (3.60-5.2); RDW 18.4 % (11.6-15.6)
[2021-06-03 07:53] LABS: ALBUMIN 2.1 g/dl (3.4-5.0); CALCIUM 8.7 mg/dL (8.5-10.1)
[2021-06-03 07:54] LABS: BLOOD UREA NITROGEN 23.6 mg/dL (7-18); MAGNESIUM 2.2 mg/dL (1.8-2.4)
[2021-06-03 07:57] LABS: BILIRUBIN,TOTAL 0.3 mg/dL (0.2-1); CREATININE 0.3 mg/dL (0.55-1.3); TOT PROT 5.3 g/dl (6.4-8.2)
[2021-06-03] MEDS: AMINO ACIDS/PROTEIN HYDROLYS 30 ML LIQUID.PKT PO SCH ×3 (08:30→17:11)
[2021-06-03] MEDS ORDERED: cefTRIAXone SODIUM 1 GM VIAL ONE (09:23)
[2021-06-03] MEDS ORDERED: PT OWN MED DRAWER 7, Y5N ONE (09:23)
[2021-06-03] MEDS ORDERED: DEXTROSE 5%-WATER - 50 ML IVPB ONE (09:23)
[2021-06-03] MEDS: SODIUM HYPOCHLORITE 0.25%- 473 ML BULK BOTTLE TP SCH ×2 (09:31→21:11)
[2021-06-03] MEDS: APIXABAN 5 MG TABLET PO SCH ×2 (09:32→21:11)
[2021-06-03] MEDS: CEFTRIAXONE 1 GM in DEXTROSE 5%-WATER - 50 ML IVPB SCH (09:32)
[2021-06-03] MEDS: TIZANIDINE HCL 2 MG TABLET PO SCH ×2 (09:33→21:11)
[2021-06-03] MEDS: BUDESONIDE/FORMETEROL FUMARATE 160/4.5 mcg INHALER IH SCH ×2 (09:34→21:08)
[2021-06-03] MEDS ORDERED: ALBUTEROL SO4 2.5/IPRATROPIUM 0.5 INH SOL 3 ML VIAL.NEB. NEB PRN (12:41)
[2021-06-03] MEDS: NYSTATIN 100,000 UNIT/GM TOPICAL CREAM 15 GM TUBE TP SCH (17:11)
[2021-06-03] MEDS: NYSTATIN POWDER 100,000 UNITS/GM - 15 GM TOPICAL POWDER TP SCH ×2 (17:11→21:11)
[2021-06-03] MEDS: ATORVASTATIN CA 20 MG TABLET (FP) PO SCH (21:10)
[2021-06-04] MEDS: NYSTATIN 100,000 UNIT/GM TOPICAL CREAM 15 GM TUBE TP SCH ×5 (00:01→23:47)
[2021-06-04] MEDS: NYSTATIN POWDER 100,000 UNITS/GM - 15 GM TOPICAL POWDER TP SCH ×3 (06:09→22:49)
[2021-06-04] MEDS: ACETAMINOPHEN 325 MG TABLET (FP) PO PRN (07:34)
[2021-06-04] MEDS: AMINO ACIDS/PROTEIN HYDROLYS 30 ML LIQUID.PKT PO SCH ×3 (07:35→18:35)
[2021-06-04 08:24] LABS: CALCIUM 8.6 mg/dL (8.5-10.1)
[2021-06-04 08:25] LABS: BLOOD UREA NITROGEN 24.6 mg/dL (7-18)
[2021-06-04 08:28] LABS: CREATININE 0.3 mg/dL (0.55-1.3)
[2021-06-04] MEDS ORDERED: DEXTROSE 5%-WATER - 50 ML IVPB ONE (09:30)
[2021-06-04] MEDS ORDERED: cefTRIAXone SODIUM 1 GM VIAL ONE (09:30)
[2021-06-04] MEDS ORDERED: PT OWN MED DRAWER 7, Y5N ONE ×2 (09:30→21:56)
[2021-06-04] MEDS: CEFTRIAXONE 1 GM in DEXTROSE 5%-WATER - 50 ML IVPB SCH (10:05)
[2021-06-04] MEDS: metoPROLOL SUCCINATE 25 MG TAB.SR.24H (FP) PO SCH (10:06)
[2021-06-04] MEDS: APIXABAN 5 MG TABLET PO SCH ×2 (10:06→22:48)
[2021-06-04] MEDS: TIZANIDINE HCL 2 MG TABLET PO SCH ×2 (10:10→22:48)
[2021-06-04] MEDS: BUDESONIDE/FORMETEROL FUMARATE 160/4.5 mcg INHALER IH SCH ×2 (10:14→22:48)
[2021-06-04] MEDS: SODIUM HYPOCHLORITE 0.25%- 473 ML BULK BOTTLE TP SCH ×2 (10:15→22:49)
[2021-06-04] MEDS: ONDANSETRON 4 MG/2 ML VIAL IVPUSH PRN (17:27)
[2021-06-04] MEDS: ATORVASTATIN CA 20 MG TABLET (FP) PO SCH (22:48)
[2021-06-05] MEDS: NYSTATIN 100,000 UNIT/GM TOPICAL CREAM 15 GM TUBE TP SCH ×4 (07:01→23:47)
[2021-06-05] MEDS: NYSTATIN POWDER 100,000 UNITS/GM - 15 GM TOPICAL POWDER TP SCH ×3 (07:02→22:41)
[2021-06-05 08:05] LABS: ALBUMIN 1.9 g/dl (3.4-5.0); CALCIUM 8.5 mg/dL (8.5-10.1)
[2021-06-05 08:06] LABS: MAGNESIUM 1.9 mg/dL (1.8-2.4)
[2021-06-05 08:09] LABS: CREATININE 0.2 mg/dL (0.55-1.3)
[2021-06-05 08:10] LABS: BILIRUBIN,TOTAL 0.3 mg/dL (0.2-1); TOT PROT 4.9 g/dl (6.4-8.2)
[2021-06-05] MEDS ORDERED: DEXTROSE 5%-WATER - 50 ML IVPB ONE (08:24)
[2021-06-05] MEDS ORDERED: cefTRIAXone SODIUM 1 GM VIAL ONE (08:24)
[2021-06-05] MEDS: AMINO ACIDS/PROTEIN HYDROLYS 30 ML LIQUID.PKT PO SCH ×3 (08:36→17:16)
[2021-06-05] MEDS: ACETAMINOPHEN 325 MG TABLET (FP) PO PRN (08:36)
[2021-06-05 08:39] LABS: BASO % 0.3 % (0-2.0); EOS % 2.4 % (0-4.5); HEMATOCRIT 33.5 % (32.4-45.2); HEMOGLOBIN 10.9 GM/dL (10.7-15.3); LYMPH % 18.3 % (8-40); MCH 25.2 pg (25.7-33.7); MCHC 32.4 g/dl (32.0-36.0); MEAN CELL VOLUME 77.8 fl (80-96); MEAN PLT VOLUME 7.8 fl (7.5-11.1); MONO % 7.7 % (3.8-10.2); NEUT % 71.3 % (42.8-82.8); PLATELET COUNT 658 10^3/uL (134-434); RBC 4.31 M/mm3 (3.60-5.2); RDW 18.4 % (11.6-15.6); WHITE BLOOD COUNT 15.3 K/mm3 (4.0-10.0)
[2021-06-05] MEDS: metoPROLOL SUCCINATE 25 MG TAB.SR.24H (FP) PO SCH (09:17)
[2021-06-05] MEDS: SODIUM HYPOCHLORITE 0.25%- 473 ML BULK BOTTLE TP SCH ×2 (09:17→22:43)
[2021-06-05] MEDS: APIXABAN 5 MG TABLET PO SCH ×2 (09:17→22:40)
[2021-06-05] MEDS: TIZANIDINE HCL 2 MG TABLET PO SCH ×2 (09:17→22:42)
[2021-06-05] MEDS: BUDESONIDE/FORMETEROL FUMARATE 160/4.5 mcg INHALER IH SCH ×2 (09:18→22:41)
[2021-06-05] MEDS: CEFTRIAXONE 1 GM in DEXTROSE 5%-WATER - 50 ML IVPB SCH (09:18)
[2021-06-05] MEDS: FLUTICASONE PROP 0.05% 16 GM NASAL SPRAY NS SCH (11:54)
[2021-06-05] MEDS ORDERED: FUROSEMIDE 20 MG TABLET (FP) PO ONE (14:43)
[2021-06-05] MEDS: VANCOMYCIN 250 MG/5 ML ORAL SOLUTION PO SCH ×2 (17:17→23:47)
[2021-06-05] MEDS: ATORVASTATIN CA 20 MG TABLET (FP) PO SCH (22:40)
[2021-06-06] MEDS: NYSTATIN 100,000 UNIT/GM TOPICAL CREAM 15 GM TUBE TP SCH ×4 (05:24→23:23)
[2021-06-06] MEDS: NYSTATIN POWDER 100,000 UNITS/GM - 15 GM TOPICAL POWDER TP SCH ×3 (05:24→22:23)
[2021-06-06] MEDS: VANCOMYCIN 250 MG/5 ML ORAL SOLUTION PO SCH ×4 (05:24→23:22)
[2021-06-06 08:21] LABS: BASO % 0.5 % (0-2.0); EOS % 0.5 % (0-4.5); HEMATOCRIT 33.9 % (32.4-45.2); HEMOGLOBIN 10.9 GM/dL (10.7-15.3); LYMPH % 11.3 % (8-40); MCH 25.2 pg (25.7-33.7); MCHC 32.2 g/dl (32.0-36.0); MEAN CELL VOLUME 78.5 fl (80-96); MEAN PLT VOLUME 7.4 fl (7.5-11.1); MONO % 6.5 % (3.8-10.2); NEUT % 81.2 % (42.8-82.8); PLATELET COUNT 609 10^3/uL (134-434); RBC 4.31 M/mm3 (3.60-5.2); RDW 18.3 % (11.6-15.6); WHITE BLOOD COUNT 12.4 K/mm3 (4.0-10.0)
[2021-06-06 08:47] LABS: ALBUMIN 1.9 g/dl (3.4-5.0); BLOOD UREA NITROGEN 19.3 mg/dL (7-18); CALCIUM 8.6 mg/dL (8.5-10.1); MAGNESIUM 1.9 mg/dL (1.8-2.4)
[2021-06-06 08:48] LABS: CREATININE 0.3 mg/dL (0.55-1.3); PHOSPHOROUS 3.5 mg/dL (2.5-4.9)
[2021-06-06 08:51] LABS: BILIRUBIN,TOTAL 0.4 mg/dL (0.2-1); TOT PROT 5.1 g/dl (6.4-8.2)
[2021-06-06] MEDS ORDERED: FUROSEMIDE 40 MG TABLET (FP) PO ONE (10:27)
[2021-06-06] MEDS: AMINO ACIDS/PROTEIN HYDROLYS 30 ML LIQUID.PKT PO SCH ×3 (11:41→18:38)
[2021-06-06] MEDS ORDERED: PT OWN MED DRAWER 7, Y5N ONE (11:45)
[2021-06-06] MEDS: BUDESONIDE/FORMETEROL FUMARATE 160/4.5 mcg INHALER IH SCH ×2 (11:48→22:23)
[2021-06-06] MEDS: APIXABAN 5 MG TABLET PO SCH ×2 (11:48→22:22)
[2021-06-06] MEDS: SODIUM HYPOCHLORITE 0.25%- 473 ML BULK BOTTLE TP SCH ×2 (11:48→22:23)
[2021-06-06] MEDS: metoPROLOL SUCCINATE 25 MG TAB.SR.24H (FP) PO SCH (11:48)
[2021-06-06] MEDS: TIZANIDINE HCL 2 MG TABLET PO SCH ×2 (11:48→22:22)
[2021-06-06] MEDS ORDERED: FUROSEMIDE 20 MG TABLET (FP) PO ONE (11:49)
[2021-06-06] MEDS: FLUTICASONE PROP 0.05% 16 GM NASAL SPRAY NS SCH (11:49)
[2021-06-06] MEDS: LORATADINE 10 MG TABLET PO PRN (15:19)
[2021-06-06] MEDS ORDERED: metoPROLOL SUCCINATE 25 MG TAB.SR.24H (FP) PO ONE (19:45)
[2021-06-06] MEDS: ATORVASTATIN CA 20 MG TABLET (FP) PO SCH (22:22)
[2021-06-07] MEDS: VANCOMYCIN 250 MG/5 ML ORAL SOLUTION PO SCH ×4 (06:15→23:17)
[2021-06-07] MEDS: NYSTATIN POWDER 100,000 UNITS/GM - 15 GM TOPICAL POWDER TP SCH ×3 (06:19→22:04)
[2021-06-07] MEDS: NYSTATIN 100,000 UNIT/GM TOPICAL CREAM 15 GM TUBE TP SCH ×4 (06:19→23:19)
[2021-06-07 08:29] LABS: BASO % 0.4 % (0-2.0); EOS % 0.1 % (0-4.5); HEMATOCRIT 35.3 % (32.4-45.2); HEMOGLOBIN 11.1 GM/dL (10.7-15.3); LYMPH % 10.2 % (8-40); MCH 25.1 pg (25.7-33.7); MCHC 31.4 g/dl (32.0-36.0); MEAN CELL VOLUME 80.1 fl (80-96); MEAN PLT VOLUME 7.7 fl (7.5-11.1); MONO % 5.4 % (3.8-10.2); NEUT % 83.9 % (42.8-82.8); PLATELET COUNT 585 10^3/uL (134-434); RBC 4.41 M/mm3 (3.60-5.2); RDW 18.7 % (11.6-15.6); WHITE BLOOD COUNT 10.2 K/mm3 (4.0-10.0)
[2021-06-07 08:56] LABS: CALCIUM 8.6 mg/dL (8.5-10.1)
[2021-06-07 08:57] LABS: ALBUMIN 1.9 g/dl (3.4-5.0); BLOOD UREA NITROGEN 17.4 mg/dL (7-18); MAGNESIUM 1.9 mg/dL (1.8-2.4)
[2021-06-07 08:59] LABS: PHOSPHOROUS 3.2 mg/dL (2.5-4.9)
[2021-06-07 09:00] LABS: CREATININE 0.3 mg/dL (0.55-1.3)
[2021-06-07 09:01] LABS: BILIRUBIN,TOTAL 0.3 mg/dL (0.2-1)
[2021-06-07 09:02] LABS: TOT PROT 5.1 g/dl (6.4-8.2)
[2021-06-07] MEDS: LORATADINE 10 MG TABLET PO PRN (10:37)
[2021-06-07] MEDS: AMINO ACIDS/PROTEIN HYDROLYS 30 ML LIQUID.PKT PO SCH ×3 (10:37→17:08)
[2021-06-07] MEDS: TIZANIDINE HCL 2 MG TABLET PO SCH ×2 (10:38→22:05)
[2021-06-07] MEDS: APIXABAN 5 MG TABLET PO SCH ×2 (10:38→22:04)
[2021-06-07] MEDS: SODIUM HYPOCHLORITE 0.25%- 473 ML BULK BOTTLE TP SCH ×2 (10:38→22:04)
[2021-06-07] MEDS: BUDESONIDE/FORMETEROL FUMARATE 160/4.5 mcg INHALER IH SCH ×2 (10:38→22:05)
[2021-06-07] MEDS: metoPROLOL SUCCINATE 25 MG TAB.SR.24H (FP) PO SCH (10:38)
[2021-06-07] MEDS ORDERED: QUEtiapine FUMARATE 25 MG TABLET PO SCH (22:00)
[2021-06-07] MEDS: ATORVASTATIN CA 20 MG TABLET (FP) PO SCH (22:05)
[2021-06-08 04:52] LABS: EPI CELLS 27 /uL (0-25.1); HYALINE CASTS 9 /uL (0-3.1); URINE APPEARANCE CLOUDY; URINE BACTERIA 15 /uL (0-1359); URINE BILIRUBIN NEGATIVE (NEGATIVE); URINE COLOR YELLOW; URINE GLUCOSE (UA) NEGATIVE (NEGATIVE); URINE KETONE 1+ (NEGATIVE); URINE LEUK ESTERASE 2+ (NEGATIVE); URINE NITRITE NEGATIVE (NEGATIVE); URINE PROTEIN TRACE (NEGATIVE); URINE RBC 23 /uL (0-23.9); URINE WBC 371 /uL (0-25.8)
[2021-06-08] MEDS: NYSTATIN POWDER 100,000 UNITS/GM - 15 GM TOPICAL POWDER TP SCH ×3 (06:17→21:10)
[2021-06-08] MEDS: NYSTATIN 100,000 UNIT/GM TOPICAL CREAM 15 GM TUBE TP SCH ×3 (06:17→18:27)
[2021-06-08] MEDS: VANCOMYCIN 250 MG/5 ML ORAL SOLUTION PO SCH ×3 (06:17→18:27)
[2021-06-08] MEDS: metoPROLOL SUCCINATE 25 MG TAB.SR.24H (FP) PO SCH ×2 (07:52→09:03)
[2021-06-08 08:35] LABS: BASO % 0.2 % (0-2.0); EOS % 0.1 % (0-4.5); HEMOGLOBIN 11.5 GM/dL (10.7-15.3); LYMPH % 10.9 % (8-40); MCH 25.4 pg (25.7-33.7); MCHC 31.9 g/dl (32.0-36.0); MEAN CELL VOLUME 79.6 fl (80-96); MEAN PLT VOLUME 8.8 fl (7.5-11.1); NEUT % 83.8 % (42.8-82.8); PLATELET COUNT 542 10^3/uL (134-434); RBC 4.52 M/mm3 (3.60-5.2); RDW 18.5 % (11.6-15.6); WHITE BLOOD COUNT 10.9 K/mm3 (4.0-10.0)
[2021-06-08] MEDS: AMINO ACIDS/PROTEIN HYDROLYS 30 ML LIQUID.PKT PO SCH ×3 (09:02→18:27)
[2021-06-08 09:08] LABS: ALBUMIN 2.1 g/dl (3.4-5.0); BLOOD UREA NITROGEN 14.7 mg/dL (7-18); CALCIUM 8.5 mg/dL (8.5-10.1); MAGNESIUM 1.9 mg/dL (1.8-2.4)
[2021-06-08 09:11] LABS: CREATININE 0.2 mg/dL (0.55-1.3)
[2021-06-08 09:12] LABS: PHOSPHOROUS 3.2 mg/dL (2.5-4.9)
[2021-06-08 09:13] LABS: BILIRUBIN,TOTAL 0.3 mg/dL (0.2-1); TOT PROT 5.5 g/dl (6.4-8.2)
[2021-06-08] MEDS ORDERED: BACLOFEN 10 MG TABLET (FP) PO SCH ×3 (10:50→14:00)
[2021-06-08] MEDS ORDERED: BACLOFEN 10 MG TABLET (FP) PO ONE (10:55)
[2021-06-08] MEDS ORDERED: QUEtiapine FUMARATE 50 MG TABLET PO ONE (11:00)
[2021-06-08] MEDS: APIXABAN 5 MG TABLET PO SCH ×2 (11:23→21:08)
[2021-06-08] MEDS: BUDESONIDE/FORMETEROL FUMARATE 160/4.5 mcg INHALER IH SCH ×2 (11:24→21:09)
[2021-06-08] MEDS: SODIUM HYPOCHLORITE 0.25%- 473 ML BULK BOTTLE TP SCH ×2 (11:24→21:10)
[2021-06-08] MEDS: TIZANIDINE HCL 2 MG TABLET PO SCH (11:28)
[2021-06-08] MEDS: BACLOFEN 10 MG TABLET (FP) PO SCH ×2 (12:14→21:08)
[2021-06-08 15:46] LABS: ARTERIAL BLD GAS O2 SATURATION 91.4 % (95-98); ARTERIAL BLOOD GAS BASE EXCESS 6.3 mmol/L (-2-2); ARTERIAL BLOOD GAS PO2 57.1 mmHg (80-100); ARTERIAL BLOOD GAS pH 7.474 (7.350-7.450)
[2021-06-08 15:49] LABS: ALLENS TEST POSITIVE
[2021-06-08] MEDS: ATORVASTATIN CA 20 MG TABLET (FP) PO SCH (21:09)
[2021-06-08] MEDS ORDERED: QUEtiapine FUMARATE 50 MG TABLET PO SCH (22:00)
[2021-06-09] MEDS: NYSTATIN 100,000 UNIT/GM TOPICAL CREAM 15 GM TUBE TP SCH ×4 (01:11→17:30)
[2021-06-09] MEDS: VANCOMYCIN 250 MG/5 ML ORAL SOLUTION PO SCH ×4 (01:11→17:29)
[2021-06-09] MEDS: TIZANIDINE HCL 2 MG TABLET PO SCH ×2 (02:10→10:51)
[2021-06-09] MEDS: BACLOFEN 10 MG TABLET (FP) PO SCH (06:10)
[2021-06-09] MEDS: ACETAMINOPHEN 325 MG TABLET (FP) PO PRN (06:10)
[2021-06-09] MEDS: NYSTATIN POWDER 100,000 UNITS/GM - 15 GM TOPICAL POWDER TP SCH ×3 (06:11→22:42)
[2021-06-09] MEDS: AMINO ACIDS/PROTEIN HYDROLYS 30 ML LIQUID.PKT PO SCH ×3 (09:14→16:41)
[2021-06-09 09:27] LABS: ALBUMIN 2.1 g/dl (3.4-5.0); BLOOD UREA NITROGEN 18.5 mg/dL (7-18); CALCIUM 8.4 mg/dL (8.5-10.1)
[2021-06-09 09:31] LABS: CREATININE 0.3 mg/dL (0.55-1.3); PHOSPHOROUS 3.6 mg/dL (2.5-4.9)
[2021-06-09 09:32] LABS: BILIRUBIN,TOTAL 0.4 mg/dL (0.2-1); TOT PROT 5.1 g/dl (6.4-8.2)
[2021-06-09 09:55] LABS: BASO % 0.2 % (0-2.0); EOS % 0.5 % (0-4.5); HEMATOCRIT 33.7 % (32.4-45.2); HEMOGLOBIN 10.8 GM/dL (10.7-15.3); LYMPH % 12.7 % (8-40); MCH 25.7 pg (25.7-33.7); MCHC 32.1 g/dl (32.0-36.0); MEAN CELL VOLUME 80.2 fl (80-96); MEAN PLT VOLUME 8.4 fl (7.5-11.1); MONO % 6.9 % (3.8-10.2); NEUT % 79.7 % (42.8-82.8); PLATELET COUNT 420 10^3/uL (134-434); RDW 19.2 % (11.6-15.6); WHITE BLOOD COUNT 10.7 K/mm3 (4.0-10.0)
[2021-06-09] MEDS: SODIUM HYPOCHLORITE 0.25%- 473 ML BULK BOTTLE TP SCH ×2 (10:41→22:42)
[2021-06-09] MEDS: BUDESONIDE/FORMETEROL FUMARATE 160/4.5 mcg INHALER IH SCH ×2 (10:42→22:42)
[2021-06-09] MEDS: APIXABAN 5 MG TABLET PO SCH ×2 (10:50→22:42)
[2021-06-09] MEDS: metoPROLOL SUCCINATE 25 MG TAB.SR.24H (FP) PO SCH (10:51)
[2021-06-09] MEDS: ATORVASTATIN CA 20 MG TABLET (FP) PO SCH (22:42)
[2021-06-10] MEDS: NYSTATIN 100,000 UNIT/GM TOPICAL CREAM 15 GM TUBE TP SCH ×4 (01:20→18:04)
[2021-06-10] MEDS: VANCOMYCIN 250 MG/5 ML ORAL SOLUTION PO SCH ×4 (01:20→17:38)
[2021-06-10] MEDS: NYSTATIN POWDER 100,000 UNITS/GM - 15 GM TOPICAL POWDER TP SCH ×3 (06:09→22:35)
[2021-06-10 07:18] LABS: BASO % 0.2 % (0-2.0); EOS % 1.6 % (0-4.5); HEMATOCRIT 34.9 % (32.4-45.2); HEMOGLOBIN 11.1 GM/dL (10.7-15.3); LYMPH % 13.5 % (8-40); MCH 25.3 pg (25.7-33.7); MCHC 31.7 g/dl (32.0-36.0); MEAN CELL VOLUME 79.8 fl (80-96); NEUT % 77.7 % (42.8-82.8); PLATELET COUNT 421 10^3/uL (134-434); RBC 4.37 M/mm3 (3.60-5.2); RDW 18.3 % (11.6-15.6); WHITE BLOOD COUNT 12.6 K/mm3 (4.0-10.0)
[2021-06-10 07:30] LABS: CALCIUM 8.3 mg/dL (8.5-10.1)
[2021-06-10 07:31] LABS: ALBUMIN 2.1 g/dl (3.4-5.0); BLOOD UREA NITROGEN 12.8 mg/dL (7-18)
[2021-06-10 07:34] LABS: CREATININE 0.3 mg/dL (0.55-1.3)
[2021-06-10 07:35] LABS: BILIRUBIN,TOTAL 0.4 mg/dL (0.2-1); PHOSPHOROUS 3.2 mg/dL (2.5-4.9)
[2021-06-10] MEDS ORDERED: BACLOFEN 10 MG TABLET (FP) PO SCH (09:10)
[2021-06-10] MEDS ORDERED: FUROSEMIDE 20 MG TABLET (FP) PO SCH (10:00)
[2021-06-10] MEDS: AMINO ACIDS/PROTEIN HYDROLYS 30 ML LIQUID.PKT PO SCH ×3 (10:09→17:24)
[2021-06-10] MEDS: metoPROLOL SUCCINATE 25 MG TAB.SR.24H (FP) PO SCH ×2 (10:10→10:36)
[2021-06-10] MEDS: APIXABAN 5 MG TABLET PO SCH ×2 (10:10→22:34)
[2021-06-10] MEDS: SODIUM HYPOCHLORITE 0.25%- 473 ML BULK BOTTLE TP SCH ×2 (10:10→22:34)
[2021-06-10] MEDS: BUDESONIDE/FORMETEROL FUMARATE 160/4.5 mcg INHALER IH SCH ×2 (10:11→22:35)
[2021-06-10] MEDS: TIZANIDINE HCL 2 MG TABLET PO SCH ×2 (10:17→22:36)
[2021-06-10] MEDS ORDERED: POTASSIUM CHLORIDE TABS 20 MEQ TABLET.ER (FP) PO ONE (12:56)
[2021-06-10] MEDS: BACLOFEN 10 MG TABLET (FP) PO SCH (22:34)
[2021-06-10] MEDS: ATORVASTATIN CA 20 MG TABLET (FP) PO SCH (22:34)
[2021-06-11] MEDS: VANCOMYCIN 250 MG/5 ML ORAL SOLUTION PO SCH ×5 (00:20→23:16)
[2021-06-11] MEDS: NYSTATIN 100,000 UNIT/GM TOPICAL CREAM 15 GM TUBE TP SCH ×5 (00:21→23:17)
[2021-06-11] MEDS: NYSTATIN POWDER 100,000 UNITS/GM - 15 GM TOPICAL POWDER TP SCH ×3 (05:13→21:27)
[2021-06-11] MEDS: BACLOFEN 10 MG TABLET (FP) PO SCH ×3 (05:14→21:26)
[2021-06-11] MEDS: AMINO ACIDS/PROTEIN HYDROLYS 30 ML LIQUID.PKT PO SCH ×3 (08:46→17:55)
[2021-06-11] MEDS ORDERED: POTASSIUM CHLORIDE TABS 20 MEQ TABLET.ER (FP) PO ONE (09:05)
[2021-06-11] MEDS: TIZANIDINE HCL 2 MG TABLET PO SCH ×2 (10:14→21:27)
[2021-06-11] MEDS: metoPROLOL SUCCINATE 25 MG TAB.SR.24H (FP) PO SCH (10:14)
[2021-06-11] MEDS: APIXABAN 5 MG TABLET PO SCH ×2 (10:15→21:26)
[2021-06-11] MEDS: BUDESONIDE/FORMETEROL FUMARATE 160/4.5 mcg INHALER IH SCH ×2 (10:16→21:28)
[2021-06-11] MEDS: SODIUM HYPOCHLORITE 0.25%- 473 ML BULK BOTTLE TP SCH ×2 (12:33→21:25)
[2021-06-11] MEDS ORDERED: LACTATED RINGERS SOLUTION 1000 ML INFUS.BAG IV ONE ×2 (14:01→19:16)
[2021-06-11] MEDS ORDERED: SODIUM CHLORIDE 500 ML IV STA (19:34)
[2021-06-11] MEDS: ATORVASTATIN CA 20 MG TABLET (FP) PO SCH (21:26)
[2021-06-12] MEDS: NYSTATIN POWDER 100,000 UNITS/GM - 15 GM TOPICAL POWDER TP SCH ×3 (05:23→22:12)
[2021-06-12] MEDS: VANCOMYCIN 250 MG/5 ML ORAL SOLUTION PO SCH ×4 (05:23→23:05)
[2021-06-12] MEDS: NYSTATIN 100,000 UNIT/GM TOPICAL CREAM 15 GM TUBE TP SCH ×4 (05:23→23:05)
[2021-06-12] MEDS: BACLOFEN 10 MG TABLET (FP) PO SCH ×3 (05:23→22:12)
[2021-06-12 09:07] LABS: BASO % 0.7 % (0-2.0); HEMATOCRIT 32.8 % (32.4-45.2); HEMOGLOBIN 10.6 GM/dL (10.7-15.3); MCH 25.5 pg (25.7-33.7); MCHC 32.3 g/dl (32.0-36.0); MEAN CELL VOLUME 79.1 fl (80-96); MEAN PLT VOLUME 8.1 fl (7.5-11.1); MONO % 6.4 % (3.8-10.2); NEUT % 69.9 % (42.8-82.8); PLATELET COUNT 312 10^3/uL (134-434); RBC 4.14 M/mm3 (3.60-5.2); RDW 18.3 % (11.6-15.6)
[2021-06-12 09:23] LABS: CALCIUM 7.7 mg/dL (8.5-10.1)
[2021-06-12 09:24] LABS: ALBUMIN 1.8 g/dl (3.4-5.0); MAGNESIUM 2.1 mg/dL (1.8-2.4)
[2021-06-12 09:27] LABS: CREATININE 0.4 mg/dL (0.55-1.3); PHOSPHOROUS 3.5 mg/dL (2.5-4.9)
[2021-06-12 09:28] LABS: BILIRUBIN,TOTAL 0.5 mg/dL (0.2-1); TOT PROT 4.4 g/dl (6.4-8.2)
[2021-06-12] MEDS: TIZANIDINE HCL 2 MG TABLET PO SCH ×2 (09:28→22:12)
[2021-06-12] MEDS: AMINO ACIDS/PROTEIN HYDROLYS 30 ML LIQUID.PKT PO SCH ×3 (09:28→17:06)
[2021-06-12] MEDS: APIXABAN 5 MG TABLET PO SCH ×2 (09:28→22:12)
[2021-06-12] MEDS: metoPROLOL SUCCINATE 25 MG TAB.SR.24H (FP) PO SCH (09:29)
[2021-06-12] MEDS: SODIUM HYPOCHLORITE 0.25%- 473 ML BULK BOTTLE TP SCH ×2 (09:29→22:13)
[2021-06-12] MEDS: BUDESONIDE/FORMETEROL FUMARATE 160/4.5 mcg INHALER IH SCH ×2 (09:30→22:12)
[2021-06-12] MEDS: ACETAMINOPHEN 325 MG TABLET (FP) PO PRN (13:04)
[2021-06-12] MEDS ORDERED: LACTATED RINGERS SOLUTION 1,000 ML/1,000 ML INFUS.BAG IV STA (15:15)
[2021-06-12 18:10] VITALS: BMI 36.3
[2021-06-12] MEDS ORDERED: PT OWN MED DRAWER 7, Y5N ONE (22:00)
[2021-06-12] MEDS: ATORVASTATIN CA 20 MG TABLET (FP) PO SCH (22:12)
[2021-06-13] MEDS: VANCOMYCIN 250 MG/5 ML ORAL SOLUTION PO SCH ×4 (06:43→23:08)
[2021-06-13] MEDS: NYSTATIN 100,000 UNIT/GM TOPICAL CREAM 15 GM TUBE TP SCH ×4 (06:43→23:08)
[2021-06-13] MEDS: BACLOFEN 10 MG TABLET (FP) PO SCH ×3 (06:43→22:02)
[2021-06-13] MEDS: NYSTATIN POWDER 100,000 UNITS/GM - 15 GM TOPICAL POWDER TP SCH ×3 (06:43→22:03)
[2021-06-13 08:23] LABS: BASO % 0.6 % (0-2.0); EOS % 7.1 % (0-4.5); HEMATOCRIT 32.1 % (32.4-45.2); HEMOGLOBIN 10.3 GM/dL (10.7-15.3); MCH 25.4 pg (25.7-33.7); MEAN CELL VOLUME 79.6 fl (80-96); MEAN PLT VOLUME 8.3 fl (7.5-11.1); MONO % 6.2 % (3.8-10.2); NEUT % 71.1 % (42.8-82.8); PLATELET COUNT 305 10^3/uL (134-434); RBC 4.03 M/mm3 (3.60-5.2); WHITE BLOOD COUNT 9.4 K/mm3 (4.0-10.0)
[2021-06-13 08:37] LABS: ALBUMIN 1.7 g/dl (3.4-5.0); BLOOD UREA NITROGEN 29.9 mg/dL (7-18); CALCIUM 7.6 mg/dL (8.5-10.1)
[2021-06-13 08:38] LABS: MAGNESIUM 1.8 mg/dL (1.8-2.4)
[2021-06-13 08:40] LABS: CREATININE 0.4 mg/dL (0.55-1.3)
[2021-06-13 08:41] LABS: PHOSPHOROUS 3.4 mg/dL (2.5-4.9)
[2021-06-13 08:42] LABS: BILIRUBIN,TOTAL 0.3 mg/dL (0.2-1); TOT PROT 4.2 g/dl (6.4-8.2)
[2021-06-13] MEDS: AMINO ACIDS/PROTEIN HYDROLYS 30 ML LIQUID.PKT PO SCH ×3 (09:16→17:06)
[2021-06-13] MEDS: TIZANIDINE HCL 2 MG TABLET PO SCH ×2 (09:18→22:02)
[2021-06-13] MEDS: metoPROLOL SUCCINATE 25 MG TAB.SR.24H (FP) PO SCH (09:18)
[2021-06-13] MEDS: APIXABAN 5 MG TABLET PO SCH ×2 (09:18→22:02)
[2021-06-13] MEDS: SODIUM HYPOCHLORITE 0.25%- 473 ML BULK BOTTLE TP SCH ×2 (09:19→22:03)
[2021-06-13] MEDS: BUDESONIDE/FORMETEROL FUMARATE 160/4.5 mcg INHALER IH SCH ×2 (09:20→22:03)
[2021-06-13] MEDS ORDERED: POTASSIUM CHLORIDE TABS 20 MEQ TABLET.ER (FP) PO ONE (10:46)
[2021-06-13] MEDS: ACETAMINOPHEN 325 MG TABLET (FP) PO PRN (12:08)
[2021-06-13] MEDS: KCL 10 MEQ IVPB 10 MEQ/100 ML INFUS.BAG IVPB SCH ×2 (14:25→16:11)
[2021-06-13] MEDS ORDERED: PT OWN MED DRAWER 7, Y5N ONE (21:57)
[2021-06-13] MEDS: ATORVASTATIN CA 20 MG TABLET (FP) PO SCH (22:02)
[2021-06-14] MEDS: NYSTATIN 100,000 UNIT/GM TOPICAL CREAM 15 GM TUBE TP SCH ×2 (06:15→11:42)
[2021-06-14] MEDS: BACLOFEN 10 MG TABLET (FP) PO SCH ×2 (06:15→13:42)
[2021-06-14] MEDS: VANCOMYCIN 250 MG/5 ML ORAL SOLUTION PO SCH ×2 (06:15→13:42)
[2021-06-14] MEDS: NYSTATIN POWDER 100,000 UNITS/GM - 15 GM TOPICAL POWDER TP SCH ×2 (06:15→13:45)
[2021-06-14 07:51] LABS: BASO % 0.7 % (0-2.0); EOS % 6.4 % (0-4.5); HEMATOCRIT 33.9 % (32.4-45.2); HEMOGLOBIN 10.9 GM/dL (10.7-15.3); LYMPH % 14.3 % (8-40); MCHC 32.2 g/dl (32.0-36.0); MEAN CELL VOLUME 80.7 fl (80-96); MEAN PLT VOLUME 8.9 fl (7.5-11.1); MONO % 7.4 % (3.8-10.2); NEUT % 71.2 % (42.8-82.8); PLATELET COUNT 331 10^3/uL (134-434); RBC 4.19 M/mm3 (3.60-5.2)
[2021-06-14 08:04] LABS: ALBUMIN 1.7 g/dl (3.4-5.0); CALCIUM 7.5 mg/dL (8.5-10.1)
[2021-06-14 08:05] LABS: BLOOD UREA NITROGEN 30.2 mg/dL (7-18); MAGNESIUM 1.7 mg/dL (1.8-2.4)
[2021-06-14 08:08] LABS: CREATININE 0.5 mg/dL (0.55-1.3); PHOSPHOROUS 3.2 mg/dL (2.5-4.9)
[2021-06-14 08:09] LABS: BILIRUBIN,TOTAL 0.4 mg/dL (0.2-1); TOT PROT 4.4 g/dl (6.4-8.2)
[2021-06-14] MEDS ORDERED: LORATADINE 10 MG TABLET PO ONE (10:45)
[2021-06-14] MEDS ORDERED: PT OWN MED DRAWER 7, Y5N ONE (11:33)
[2021-06-14] MEDS: AMINO ACIDS/PROTEIN HYDROLYS 30 ML LIQUID.PKT PO SCH ×2 (11:39→11:40)
[2021-06-14] MEDS: APIXABAN 5 MG TABLET PO SCH (11:40)
[2021-06-14] MEDS: BUDESONIDE/FORMETEROL FUMARATE 160/4.5 mcg INHALER IH SCH (11:40)
[2021-06-14] MEDS: TIZANIDINE HCL 2 MG TABLET PO SCH (11:41)
[2021-06-14] MEDS: metoPROLOL SUCCINATE 25 MG TAB.SR.24H (FP) PO SCH (13:40)
[2021-06-14] MEDS: SODIUM HYPOCHLORITE 0.25%- 473 ML BULK BOTTLE TP SCH (13:45)
[2021-06-14 15:07] VITALS: TEMP 97.5
[2021-06-14 15:11] VITALS: BP 87/52; PULSE 100
[2021-06-15] MEDS ORDERED: LORATADINE 10 MG TABLET PO PRN (10:00)
== END 2021-06-14 14:36 | disposition home health service (06) | DRG 291 ==
LOC: JER 10:12 → JERBED 17:09 → J7W 20:24
PROVIDERS: ATTEND Internal Medicine
DX: I11.0 Hypertensive heart disease with heart failure (principal); L89.154 Pressure ulcer of sacral region, stage 4; G93.41 Metabolic encephalopathy; Z68.41 Body mass index [BMI] 40.0-44.9, adult; E87.1 Hypo-osmolality and hyponatremia; A04.72 Enterocolitis due to Clostridium difficile, not specified as recurrent; N39.0 Urinary tract infection, site not specified; G82.20 Paraplegia, unspecified; J96.11 Chronic respiratory failure with hypoxia; J98.11 Atelectasis; B37.0 Candidal stomatitis; E78.5 Hyperlipidemia, unspecified; I50.33 Acute on chronic diastolic (congestive) heart failure; I48.0 Paroxysmal atrial fibrillation; E78.00 Pure hypercholesterolemia, unspecified; J44.9 Chronic obstructive pulmonary disease, unspecified; E66.01 Morbid (severe) obesity due to excess calories; D47.3 Essential (hemorrhagic) thrombocythemia; E87.5 Hyperkalemia; D64.9 Anemia, unspecified; R41.82 Altered mental status, unspecified; D69.6 Thrombocytopenia, unspecified; Z99.81 Dependence on supplemental oxygen; Z74.01 Bed confinement status
CPT/HCPCS: 36415; 36600; 70450-TC; 71046-TC-FY; 80048; 80053; 81003; 82272; 82436; 82607; 82728; 82747; 82803; 82962; 83010; 83540; 83550; 83605; 83615; 83735; 83880; 83930; 83935; 84100; 84133; 84300; 84439; 84443; 84466; 84484; 85014; 85025; 85045; 85379; 85610; 85651; 85730; 86140; 87040; 87077; 87086; 87324; 87449; 88300-TC; 93005; 93010; 93306-TC; 94640; 97161-GP; 99285-25; C9803; J0475; U0003; U0005

== ENCOUNTER 2021-06-20 10:42 | Inpatient (IN) | payer OTHER, MEDICARE ==
[2021-06-20] MEDS ORDERED: SODIUM CHLORIDE IV ONE (11:54)
[2021-06-20 12:33] LABS: BASO % 0.2 % (0-2.0); EOS % 1.3 % (0-4.5); HEMATOCRIT 33.1 % (32.4-45.2); HEMOGLOBIN 10.9 GM/dL (10.7-15.3); LYMPH % 10.5 % (8-40); MCHC 32.8 g/dl (32.0-36.0); MEAN CELL VOLUME 79.4 fl (80-96); MEAN PLT VOLUME 8.3 fl (7.5-11.1); MONO % 4.7 % (3.8-10.2); NEUT % 83.3 % (42.8-82.8); PLATELET COUNT 562 10^3/uL (134-434); RBC 4.17 M/mm3 (3.60-5.2)
[2021-06-20 12:48] LABS: INR 2.21 (0.83-1.09); PROTHROMBIN TIME (PATIENT) 26.1 SEC (9.7-13.0)
[2021-06-20 12:50] LABS: ACTIVATED PTT 40.5 SECONDS (25.2-36.5)
[2021-06-20 12:56] LABS: CHLORIDE 92 mmol/L (98-107); SODIUM 129 mmol/L (136-145)
[2021-06-20 12:58] LABS: ALBUMIN 1.8 g/dl (3.4-5.0); ANION GAP 11 MMOL/L (8-16); CALCIUM 7.9 mg/dL (8.5-10.1); CO2 26 mmol/L (21-32); GLUCOSE,RANDOM 68 mg/dL (74-106)
[2021-06-20 12:59] LABS: BLOOD UREA NITROGEN 23.1 mg/dL (7-18)
[2021-06-20 13:01] LABS: SGOT/AST 17 U/L (15-37); SGPT/ALT 24 U/L (13-61)
[2021-06-20 13:02] LABS: CREATININE 0.5 mg/dL (0.55-1.3)
[2021-06-20 13:03] LABS: BILIRUBIN,TOTAL 0.3 mg/dL (0.2-1); TOT PROT 4.8 g/dl (6.4-8.2)
[2021-06-20 13:07] LABS: ALK PHOS 217 U/L (45-117)
[2021-06-20 14:35] LABS: EPI CELLS 7 /uL (0-25.1); HYALINE CASTS 3 /uL (0-3.1); PH,URINE 5.5 (5.0-8.0); URINE APPEARANCE CLEAR; URINE BACTERIA 19 /uL (0-1359); URINE BILIRUBIN NEGATIVE (NEGATIVE); URINE COLOR YELLOW; URINE GLUCOSE (UA) NEGATIVE (NEGATIVE); URINE KETONE TRACE (NEGATIVE); URINE LEUK ESTERASE TRACE (NEGATIVE); URINE NITRITE NEGATIVE (NEGATIVE); URINE PROTEIN NEGATIVE (NEGATIVE); URINE RBC 17 /uL (0-23.9); URINE UROBILINOGEN 0.2 mg/dL (0.2-1.0); URINE WBC 18 /uL (0-25.8)
[2021-06-20 15:16] LABS: MAGNESIUM 1.6 mg/dL (1.8-2.4)
[2021-06-20 15:25] LABS: N-TERMINAL BNP 5697.6 pg/ml (5-125)
[2021-06-20] MEDS ORDERED: FUROSEMIDE 40 MG/4 ML INJECTABLE VIAL IVPUSH ONE (15:28)
[2021-06-20] MEDS ORDERED: FUROSEMIDE 40 MG/4 ML INJECTABLE VIAL ONE (15:43)
[2021-06-20] MEDS ORDERED: POTASSIUM CHLORIDE TABS 20 MEQ TABLET.ER (FP) PO ONE (15:43)
[2021-06-20] MEDS: POTASSIUM CHLORIDE TABS 20 MEQ TABLET.ER (FP) PO SCH (15:48)
[2021-06-20] MEDS ORDERED: MAGNESIUM SULF 50% (8.12 MEQ/2 ML-1 GM VIAL) IVPB ONE ×2 (17:38→22:00)
[2021-06-20] MEDS ORDERED: METOPROLOL TARTRATE 5 MG/5 ML VIAL IVPUSH ONE (19:44)
[2021-06-20] MEDS ORDERED: dilTIAZem HCL 30 MG TABLET PO ONE (22:00)
[2021-06-20] MEDS: BACLOFEN 10 MG TABLET (FP) PO SCH (22:12)
[2021-06-20] MEDS: ATORVASTATIN CA 20 MG TABLET (FP) PO SCH (22:12)
[2021-06-20] MEDS: APIXABAN 5 MG TABLET PO SCH (22:12)
[2021-06-20] MEDS: TIZANIDINE HCL 2 MG TABLET PO SCH (22:12)
[2021-06-21] MEDS: BACLOFEN 10 MG TABLET (FP) PO SCH ×3 (05:52→21:59)
[2021-06-21 08:28] LABS: BASO % 0.2 % (0-2.0); EOS % 0.2 % (0-4.5); HEMATOCRIT 34.5 % (32.4-45.2); HEMOGLOBIN 11.3 GM/dL (10.7-15.3); LYMPH % 10.2 % (8-40); MCH 26.5 pg (25.7-33.7); MCHC 32.8 g/dl (32.0-36.0); MEAN CELL VOLUME 80.8 fl (80-96); MEAN PLT VOLUME 8.4 fl (7.5-11.1); MONO % 3.6 % (3.8-10.2); NEUT % 85.8 % (42.8-82.8); PLATELET COUNT 571 10^3/uL (134-434); RBC 4.26 M/mm3 (3.60-5.2); RDW 19.1 % (11.6-15.6); WHITE BLOOD COUNT 10.7 K/mm3 (4.0-10.0)
[2021-06-21 08:51] LABS: BLOOD UREA NITROGEN 21.6 mg/dL (7-18); MAGNESIUM 1.9 mg/dL (1.8-2.4)
[2021-06-21 08:54] LABS: CREATININE 0.4 mg/dL (0.55-1.3)
[2021-06-21] MEDS ORDERED: PT OWN MED DRAWER 7, Y5N ONE (09:13)
[2021-06-21] MEDS: metoPROLOL SUCCINATE 25 MG TAB.SR.24H (FP) PO SCH ×2 (09:40→13:41)
[2021-06-21] MEDS: APIXABAN 5 MG TABLET PO SCH ×3 (09:40→21:58)
[2021-06-21] MEDS: TIZANIDINE HCL 2 MG TABLET PO SCH ×3 (09:40→21:59)
[2021-06-21] MEDS: BUDESONIDE/FORMETEROL FUMARATE 160/4.5 mcg INHALER IH SCH ×3 (09:40→21:59)
[2021-06-21] MEDS ORDERED: ASPIRIN 325 MG TABLET PO SCH (10:00)
[2021-06-21] MEDS: COLLAGENASE CLOSTRIDIUM HIST. 30 GRAMS TUBE TP SCH (12:00)
[2021-06-21] MEDS ORDERED: PIPERACILLIN/TAZOBACTAM 3.375 GM VIAL IVPB ONE ×2 (12:55→16:52)
[2021-06-21] MEDS ORDERED: DEXTROSE 5%-WATER - 50 ML IVPB ONE ×2 (12:55→16:53)
[2021-06-21] MEDS: PIPERACILLIN/TAZOB 3.375 GM 3.375 GM in DEXTROSE 5%-WATER - 50 ML IVPB SCH ×2 (13:36→17:17)
[2021-06-21 13:44] VITALS: BMI 33.3
[2021-06-21] MEDS: POTASSIUM CHLORIDE TABS 20 MEQ TABLET.ER (FP) PO SCH (14:18)
[2021-06-21] MEDS ORDERED: METOPROLOL TARTRATE 5 MG/5 ML VIAL IVPUSH PRN ×2 (14:38→15:55)
[2021-06-21] MEDS ORDERED: METOPROLOL TARTRATE 5 MG/5 ML VIAL IVPUSH ONE (14:38)
[2021-06-21] MEDS: SODIUM CHLORIDE 1,000 ML IV SCH (15:45)
[2021-06-21] MEDS ORDERED: dilTIAZem HCL 50 MG/10 ML - 10 ML VIAL IVPB SCH (16:00)
[2021-06-21] MEDS ORDERED: DILTIAZEM IVPB ONE ×2 (16:15)
[2021-06-21] MEDS ORDERED: WATER IVPB ONE ×2 (16:15)
[2021-06-21] MEDS ORDERED: DEXTROSE 5% IVPB ONE ×2 (16:15)
[2021-06-21 17:05] LABS: EPI CELLS 8 /uL (0-25.1); HYALINE CASTS 11 /uL (0-3.1); PH,URINE 5.5 (5.0-8.0); URINE APPEARANCE CLEAR; URINE BACTERIA 5 /uL (0-1359); URINE BILIRUBIN NEGATIVE (NEGATIVE); URINE COLOR YELLOW; URINE GLUCOSE (UA) NEGATIVE (NEGATIVE); URINE KETONE TRACE (NEGATIVE); URINE LEUK ESTERASE NEGATIVE (NEGATIVE); URINE NITRITE NEGATIVE (NEGATIVE); URINE PROTEIN 1+ (NEGATIVE); URINE RBC 26 /uL (0-23.9); URINE UROBILINOGEN 0.2 mg/dL (0.2-1.0)
[2021-06-21 17:32] LABS: BASO % 0.2 % (0-2.0); EOS % 0.2 % (0-4.5); HEMATOCRIT 34.3 % (32.4-45.2); HEMOGLOBIN 11.2 GM/dL (10.7-15.3); LYMPH % 8.4 % (8-40); MCH 26.1 pg (25.7-33.7); MCHC 32.7 g/dl (32.0-36.0); MEAN CELL VOLUME 79.8 fl (80-96); MEAN PLT VOLUME 8.1 fl (7.5-11.1); MONO % 5.4 % (3.8-10.2); NEUT % 85.8 % (42.8-82.8); PLATELET COUNT 636 10^3/uL (134-434); RDW 19.6 % (11.6-15.6); WHITE BLOOD COUNT 12.4 K/mm3 (4.0-10.0)
[2021-06-21 17:40] LABS: INR 1.98 (0.83-1.09); PROTHROMBIN TIME (PATIENT) 23.9 SEC (9.7-13.0)
[2021-06-21 17:43] LABS: ACTIVATED PTT 38.1 SECONDS (25.2-36.5)
[2021-06-21 17:47] LABS: URINE WBC 56.2 /uL (0-25.8)
[2021-06-21 17:51] LABS: CALCIUM 8.2 mg/dL (8.5-10.1)
[2021-06-21 17:52] LABS: ALBUMIN 1.8 g/dl (3.4-5.0); BLOOD UREA NITROGEN 22.2 mg/dL (7-18)
[2021-06-21 17:55] LABS: CREATININE 0.5 mg/dL (0.55-1.3)
[2021-06-21 17:56] LABS: BILIRUBIN,TOTAL 0.3 mg/dL (0.2-1)
[2021-06-21] MEDS: ATORVASTATIN CA 20 MG TABLET (FP) PO SCH (21:59)
[2021-06-22] MEDS ORDERED: PIPERACILLIN/TAZOBACTAM 3.375 GM VIAL IVPB ONE ×2 (01:25→17:40)
[2021-06-22] MEDS: PIPERACILLIN/TAZOB 3.375 GM 3.375 GM in DEXTROSE 5%-WATER - 50 ML IVPB SCH ×3 (02:00→17:55)
[2021-06-22] MEDS: BACLOFEN 10 MG TABLET (FP) PO SCH ×3 (06:18→21:49)
[2021-06-22] MEDS ORDERED: WATER IVPB ONE (06:30)
[2021-06-22] MEDS ORDERED: DILTIAZEM IVPB ONE (06:30)
[2021-06-22] MEDS ORDERED: DEXTROSE 5% IVPB ONE (06:30)
[2021-06-22] MEDS ORDERED: METOPROLOL TARTRATE 5 MG/5 ML VIAL IVPUSH PRN (08:06)
[2021-06-22 08:07] LABS: BASO % 0.2 % (0-2.0); EOS % 0.1 % (0-4.5); HEMATOCRIT 32.9 % (32.4-45.2); HEMOGLOBIN 10.9 GM/dL (10.7-15.3); LYMPH % 7.8 % (8-40); MCH 26.7 pg (25.7-33.7); MCHC 33.1 g/dl (32.0-36.0); MEAN CELL VOLUME 80.8 fl (80-96); MEAN PLT VOLUME 8.4 fl (7.5-11.1); MONO % 5.2 % (3.8-10.2); NEUT % 86.7 % (42.8-82.8); PLATELET COUNT 662 10^3/uL (134-434); RBC 4.07 M/mm3 (3.60-5.2); RDW 19.6 % (11.6-15.6); WHITE BLOOD COUNT 10.3 K/mm3 (4.0-10.0)
[2021-06-22 08:26] LABS: ALBUMIN 1.7 g/dl (3.4-5.0)
[2021-06-22 08:28] LABS: BLOOD UREA NITROGEN 23.3 mg/dL (7-18)
[2021-06-22 08:30] LABS: CALCIUM 7.9 mg/dL (8.5-10.1); MAGNESIUM 1.9 mg/dL (1.8-2.4)
[2021-06-22 08:32] LABS: CREATININE 0.6 mg/dL (0.55-1.3); PHOSPHOROUS 4.4 mg/dL (2.5-4.9)
[2021-06-22 08:34] LABS: BILIRUBIN,TOTAL 0.3 mg/dL (0.2-1); TOT PROT 4.7 g/dl (6.4-8.2)
[2021-06-22] MEDS: TIZANIDINE HCL 2 MG TABLET PO SCH ×2 (09:46→21:49)
[2021-06-22] MEDS: APIXABAN 5 MG TABLET PO SCH (09:46)
[2021-06-22] MEDS: COLLAGENASE CLOSTRIDIUM HIST. 30 GRAMS TUBE TP SCH ×2 (09:46→10:53)
[2021-06-22] MEDS: BUDESONIDE/FORMETEROL FUMARATE 160/4.5 mcg INHALER IH SCH ×2 (09:46→21:49)
[2021-06-22] MEDS: metoPROLOL SUCCINATE 25 MG TAB.SR.24H (FP) PO SCH (09:47)
[2021-06-22] MEDS ORDERED: PT OWN MED DRAWER 7, Y5N ONE (11:24)
[2021-06-22] MEDS: SODIUM CHLORIDE 1,000 ML IV SCH (14:18)
[2021-06-22] MEDS: POTASSIUM CHLORIDE TABS 20 MEQ TABLET.ER (FP) PO SCH (14:19)
[2021-06-22] MEDS: ENOXAPARIN NA (PORCINE) 80 MG/0.8 ML DISP.SYRIN SQ SCH ×2 (15:00→21:49)
[2021-06-22] MEDS ORDERED: FUROSEMIDE 40 MG/4 ML INJECTABLE VIAL IVPUSH ONE (16:54)
[2021-06-22] MEDS ORDERED: DEXTROSE 5%-WATER - 50 ML IVPB ONE (17:40)
[2021-06-22] MEDS: ATORVASTATIN CA 20 MG TABLET (FP) PO SCH (21:49)
[2021-06-22] MEDS ORDERED: DILTIAZEM INJECTION 125 MG in SODIUM CHLORIDE 100 ML IVPB ONE (22:30)
[2021-06-23] MEDS: PIPERACILLIN/TAZOB 3.375 GM 3.375 GM in DEXTROSE 5%-WATER - 50 ML IVPB SCH ×5 (02:00→20:11)
[2021-06-23] MEDS ORDERED: PIPERACILLIN/TAZOBACTAM 3.375 GM VIAL IVPB ONE ×3 (02:11→15:54)
[2021-06-23] MEDS ORDERED: DEXTROSE 5%-WATER - 50 ML IVPB ONE ×2 (02:11→15:54)
[2021-06-23] MEDS: BACLOFEN 10 MG TABLET (FP) PO SCH ×4 (06:03→22:23)
[2021-06-23 07:44] LABS: BASO % 0.7 % (0-2.0); EOS % 0.1 % (0-4.5); HEMATOCRIT 32.5 % (32.4-45.2); HEMOGLOBIN 10.5 GM/dL (10.7-15.3); LYMPH % 11.9 % (8-40); MCH 26.9 pg (25.7-33.7); MCHC 32.3 g/dl (32.0-36.0); MEAN CELL VOLUME 83.4 fl (80-96); MEAN PLT VOLUME 8.1 fl (7.5-11.1); MONO % 4.7 % (3.8-10.2); NEUT % 82.6 % (42.8-82.8); PLATELET COUNT 563 10^3/uL (134-434); RBC 3.89 M/mm3 (3.60-5.2); RDW 20.1 % (11.6-15.6)
[2021-06-23 08:07] LABS: ALBUMIN 1.8 g/dl (3.4-5.0); CALCIUM 8.1 mg/dL (8.5-10.1)
[2021-06-23 08:08] LABS: MAGNESIUM 1.9 mg/dL (1.8-2.4)
[2021-06-23 08:11] LABS: CREATININE 0.8 mg/dL (0.55-1.3); PHOSPHOROUS 4.4 mg/dL (2.5-4.9)
[2021-06-23 08:12] LABS: BILIRUBIN,TOTAL 0.6 mg/dL (0.2-1); TOT PROT 4.9 g/dl (6.4-8.2)
[2021-06-23] MEDS: ENOXAPARIN NA (PORCINE) 80 MG/0.8 ML DISP.SYRIN SQ SCH ×2 (10:52→11:13)
[2021-06-23] MEDS: BUDESONIDE/FORMETEROL FUMARATE 160/4.5 mcg INHALER IH SCH ×2 (10:54→22:23)
[2021-06-23] MEDS: COLLAGENASE CLOSTRIDIUM HIST. 30 GRAMS TUBE TP SCH (10:55)
[2021-06-23] MEDS: TIZANIDINE HCL 2 MG TABLET PO SCH ×2 (10:55→22:22)
[2021-06-23] MEDS: POTASSIUM CHLORIDE TABS 20 MEQ TABLET.ER (FP) PO SCH ×2 (12:41→17:11)
[2021-06-23] MEDS: APIXABAN 5 MG TABLET PO SCH ×2 (12:41→22:22)
[2021-06-23] MEDS ORDERED: SODIUM CHLORIDE 250 ML IV ONE (17:30)
[2021-06-23] MEDS: ATORVASTATIN CA 20 MG TABLET (FP) PO SCH (22:23)
[2021-06-24] MEDS ORDERED: SODIUM CHLORIDE 250 ML IV STA (00:36)
[2021-06-24] MEDS ORDERED: PIPERACILLIN/TAZOBACTAM 3.375 GM VIAL IVPB ONE ×3 (02:27→16:30)
[2021-06-24] MEDS ORDERED: DEXTROSE 5%-WATER - 50 ML IVPB ONE ×3 (02:28→16:31)
[2021-06-24] MEDS: PIPERACILLIN/TAZOB 3.375 GM 3.375 GM in DEXTROSE 5%-WATER - 50 ML IVPB SCH ×3 (02:30→17:07)
[2021-06-24] MEDS ORDERED: SODIUM CHLORIDE 0.9% 500 ML INFUS.BAG IV ONE (03:01)
[2021-06-24] MEDS: BACLOFEN 10 MG TABLET (FP) PO SCH ×3 (06:08→21:35)
[2021-06-24] MEDS ORDERED: SODIUM CHLORIDE 500 ML IV STA (09:26)
[2021-06-24] MEDS: BUDESONIDE/FORMETEROL FUMARATE 160/4.5 mcg INHALER IH SCH ×2 (10:15→21:36)
[2021-06-24] MEDS: APIXABAN 5 MG TABLET PO SCH ×2 (10:15→21:35)
[2021-06-24] MEDS: COLLAGENASE CLOSTRIDIUM HIST. 30 GRAMS TUBE TP SCH (12:45)
[2021-06-24] MEDS: POTASSIUM CHLORIDE TABS 20 MEQ TABLET.ER (FP) PO SCH (14:41)
[2021-06-24 21:35] LABS: BASO % 0.7 % (0-2.0); EOS % 0.4 % (0-4.5); HEMATOCRIT 29.7 % (32.4-45.2); HEMOGLOBIN 9.8 GM/dL (10.7-15.3); LYMPH % 14.7 % (8-40); MCH 26.5 pg (25.7-33.7); MCHC 33.1 g/dl (32.0-36.0); MEAN CELL VOLUME 80.3 fl (80-96); MEAN PLT VOLUME 7.5 fl (7.5-11.1); MONO % 4.3 % (3.8-10.2); NEUT % 79.9 % (42.8-82.8); PLATELET COUNT 549 10^3/uL (134-434); RDW 19.5 % (11.6-15.6); WHITE BLOOD COUNT 9.8 K/mm3 (4.0-10.0)
[2021-06-24] MEDS: ATORVASTATIN CA 20 MG TABLET (FP) PO SCH (21:35)
[2021-06-24 22:05] LABS: ALBUMIN 1.7 g/dl (3.4-5.0); BLOOD UREA NITROGEN 23.4 mg/dL (7-18); CALCIUM 7.5 mg/dL (8.5-10.1); MAGNESIUM 1.7 mg/dL (1.8-2.4)
[2021-06-24 22:07] LABS: CREATININE 0.7 mg/dL (0.55-1.3)
[2021-06-24 22:09] LABS: BILIRUBIN,TOTAL 0.3 mg/dL (0.2-1); PHOSPHOROUS 2.8 mg/dL (2.5-4.9); TOT PROT 4.6 g/dl (6.4-8.2)
[2021-06-25] MEDS ORDERED: PIPERACILLIN/TAZOBACTAM 3.375 GM VIAL IVPB ONE ×3 (00:19→17:20)
[2021-06-25] MEDS ORDERED: DEXTROSE 5%-WATER - 50 ML IVPB ONE ×3 (00:19→17:20)
[2021-06-25] MEDS: PIPERACILLIN/TAZOB 3.375 GM 3.375 GM in DEXTROSE 5%-WATER - 50 ML IVPB SCH ×3 (01:08→18:02)
[2021-06-25] MEDS: BACLOFEN 10 MG TABLET (FP) PO SCH ×3 (05:53→21:49)
[2021-06-25] MEDS ORDERED: PT OWN MED DRAWER 7, Y5N ONE (10:34)
[2021-06-25] MEDS: APIXABAN 5 MG TABLET PO SCH ×2 (11:10→21:49)
[2021-06-25] MEDS: BUDESONIDE/FORMETEROL FUMARATE 160/4.5 mcg INHALER IH SCH ×2 (11:11→21:56)
[2021-06-25] MEDS: POTASSIUM CHLORIDE TABS 20 MEQ TABLET.ER (FP) PO SCH (14:16)
[2021-06-25] MEDS: COLLAGENASE CLOSTRIDIUM HIST. 30 GRAMS TUBE TP SCH (15:17)
[2021-06-25] MEDS: ATORVASTATIN CA 20 MG TABLET (FP) PO SCH (21:55)
[2021-06-26] MEDS ORDERED: DEXTROSE 5%-WATER - 50 ML IVPB ONE ×3 (01:04→16:49)
[2021-06-26] MEDS ORDERED: PIPERACILLIN/TAZOBACTAM 3.375 GM VIAL IVPB ONE ×3 (01:04→16:49)
[2021-06-26] MEDS: PIPERACILLIN/TAZOB 3.375 GM 3.375 GM in DEXTROSE 5%-WATER - 50 ML IVPB SCH ×3 (02:00→17:20)
[2021-06-26] MEDS: BACLOFEN 10 MG TABLET (FP) PO SCH ×3 (05:38→21:46)
[2021-06-26] MEDS: APIXABAN 5 MG TABLET PO SCH ×2 (11:14→21:47)
[2021-06-26] MEDS: METOPROLOL TARTRATE 25 MG TABLET (FP) PO SCH ×2 (11:14→21:48)
[2021-06-26] MEDS: BUDESONIDE/FORMETEROL FUMARATE 160/4.5 mcg INHALER IH SCH ×2 (11:27→21:50)
[2021-06-26] MEDS: COLLAGENASE CLOSTRIDIUM HIST. 30 GRAMS TUBE TP SCH (11:28)
[2021-06-26] MEDS: POTASSIUM CHLORIDE TABS 20 MEQ TABLET.ER (FP) PO SCH (15:01)
[2021-06-26] MEDS: ATORVASTATIN CA 20 MG TABLET (FP) PO SCH (21:47)
[2021-06-26] MEDS ORDERED: SODIUM CHLORIDE 250 ML IV STA (23:36)
[2021-06-27] MEDS ORDERED: PIPERACILLIN/TAZOBACTAM 3.375 GM VIAL IVPB ONE ×3 (01:11→18:07)
[2021-06-27] MEDS ORDERED: DEXTROSE 5%-WATER - 50 ML IVPB ONE ×3 (01:11→18:07)
[2021-06-27] MEDS: PIPERACILLIN/TAZOB 3.375 GM 3.375 GM in DEXTROSE 5%-WATER - 50 ML IVPB SCH ×3 (02:00→18:12)
[2021-06-27] MEDS: COLLAGENASE CLOSTRIDIUM HIST. 30 GRAMS TUBE TP SCH ×2 (04:00→09:53)
[2021-06-27] MEDS: BACLOFEN 10 MG TABLET (FP) PO SCH ×3 (05:35→21:08)
[2021-06-27] MEDS: METOPROLOL TARTRATE 25 MG TABLET (FP) PO SCH ×2 (09:51→21:08)
[2021-06-27] MEDS: BUDESONIDE/FORMETEROL FUMARATE 160/4.5 mcg INHALER IH SCH ×2 (09:53→21:15)
[2021-06-27 12:34] LABS: HEMATOCRIT 29.9 % (32.4-45.2); HEMOGLOBIN 9.7 GM/dL (10.7-15.3); MCH 26.3 pg (25.7-33.7); MCHC 32.6 g/dl (32.0-36.0); MEAN CELL VOLUME 80.5 fl (80-96); MEAN PLT VOLUME 7.9 fl (7.5-11.1); PLATELET COUNT 483 10^3/uL (134-434); RBC 3.71 M/mm3 (3.60-5.2); RDW 20.3 % (11.6-15.6); WHITE BLOOD COUNT 8.9 K/mm3 (4.0-10.0)
[2021-06-27 12:38] LABS: INR 1.85 (0.83-1.09); PROTHROMBIN TIME (PATIENT) 22.3 SEC (9.7-13.0)
[2021-06-27 12:50] LABS: CHLORIDE 102 mmol/L (98-107); SODIUM 140 mmol/L (136-145)
[2021-06-27 12:53] LABS: BLOOD UREA NITROGEN 17.6 mg/dL (7-18); CALCIUM 7.8 mg/dL (8.5-10.1)
[2021-06-27 12:54] LABS: CO2 26 mmol/L (21-32); GLUCOSE,RANDOM 83 mg/dL (74-106); MAGNESIUM 1.6 mg/dL (1.8-2.4)
[2021-06-27 12:57] LABS: CREATININE 0.6 mg/dL (0.55-1.3); PHOSPHOROUS 2.5 mg/dL (2.5-4.9)
[2021-06-27 13:44] LABS: ANION GAP 12 MMOL/L (8-16)
[2021-06-27] MEDS ORDERED: POTASSIUM CHLORIDE ORAL LIQUID 20 MEQ/15 ML PO ONE (15:00)
[2021-06-27] MEDS ORDERED: MAGNESIUM 2GM/50ML STERILE WATER IVPB IVPB ONE (15:00)
[2021-06-27] MEDS: KCL 10 MEQ IVPB 10 MEQ/100 ML INFUS.BAG IVPB SCH ×5 (15:28→23:50)
[2021-06-27 17:44] LABS: CHLORIDE 103 mmol/L (98-107); SODIUM 141 mmol/L (136-145)
[2021-06-27 17:46] LABS: BLOOD UREA NITROGEN 17.3 mg/dL (7-18); CO2 28 mmol/L (21-32); GLUCOSE,RANDOM 80 mg/dL (74-106)
[2021-06-27 17:49] LABS: CREATININE 0.6 mg/dL (0.55-1.3)
[2021-06-27 17:57] LABS: ANION GAP 11 MMOL/L (8-16)
[2021-06-27] MEDS ORDERED: POTASSIUM CHLORIDE TABS 20 MEQ TABLET.ER (FP) PO ONE (18:56)
[2021-06-27] MEDS: ATORVASTATIN CA 20 MG TABLET (FP) PO SCH (21:08)
[2021-06-28] MEDS: KCL 10 MEQ IVPB 10 MEQ/100 ML INFUS.BAG IVPB SCH (01:10)
[2021-06-28] MEDS ORDERED: DEXTROSE 5%-WATER - 50 ML IVPB ONE ×3 (02:03→18:29)
[2021-06-28] MEDS ORDERED: PIPERACILLIN/TAZOBACTAM 3.375 GM VIAL IVPB ONE ×3 (02:03→18:29)
[2021-06-28] MEDS: PIPERACILLIN/TAZOB 3.375 GM 3.375 GM in DEXTROSE 5%-WATER - 50 ML IVPB SCH ×3 (02:30→18:40)
[2021-06-28] MEDS: BACLOFEN 10 MG TABLET (FP) PO SCH ×3 (06:27→22:50)
[2021-06-28] MEDS ORDERED: FUROSEMIDE 40 MG/4 ML INJECTABLE VIAL IVPUSH ONE (09:49)
[2021-06-28] MEDS: BUDESONIDE/FORMETEROL FUMARATE 160/4.5 mcg INHALER IH SCH ×2 (10:00→22:51)
[2021-06-28] MEDS: COLLAGENASE CLOSTRIDIUM HIST. 30 GRAMS TUBE TP SCH (10:00)
[2021-06-28] MEDS ORDERED: DEXTROSE 50%-WATER 25 GM/50 ML DISP.SYRIN ONE (11:09)
[2021-06-28] MEDS ORDERED: METOPROLOL TARTRATE 25 MG TABLET (FP) PO SCH (14:00)
[2021-06-28 14:18] LABS: BASO % 0.1 % (0-2.0); EOS % 0.5 % (0-4.5); HEMATOCRIT 31.1 % (32.4-45.2); HEMOGLOBIN 9.8 GM/dL (10.7-15.3); LYMPH % 7.8 % (8-40); MCH 25.7 pg (25.7-33.7); MCHC 31.5 g/dl (32.0-36.0); MEAN CELL VOLUME 81.5 fl (80-96); MONO % 3.6 % (3.8-10.2); PLATELET COUNT 519 10^3/uL (134-434); RBC 3.82 M/mm3 (3.60-5.2); RDW 20.5 % (11.6-15.6); WHITE BLOOD COUNT 15.7 K/mm3 (4.0-10.0)
[2021-06-28 14:25] LABS: INR 1.44 (0.83-1.09); PROTHROMBIN TIME (PATIENT) 17.2 SEC (9.7-13.0)
[2021-06-28 14:27] LABS: ACTIVATED PTT 34.2 SECONDS (25.2-36.5)
[2021-06-28 14:41] LABS: ALBUMIN 1.6 g/dl (3.4-5.0)
[2021-06-28 14:42] LABS: BLOOD UREA NITROGEN 18.3 mg/dL (7-18)
[2021-06-28 14:44] LABS: CREATININE 0.6 mg/dL (0.55-1.3)
[2021-06-28 14:46] LABS: BILIRUBIN,TOTAL 0.3 mg/dL (0.2-1); TOT PROT 4.4 g/dl (6.4-8.2)
[2021-06-28] MEDS ORDERED: METOPROLOL TARTRATE 5 MG/5 ML VIAL IVPUSH PRN (15:53)
[2021-06-28 16:52] LABS: ANISOCYTOSIS 2+; MACROCYTOSIS 0; OVALOCYTE 1+; PLATELET ESTIMATE INCREASED
[2021-06-28 17:26] LABS: ARTERIAL BLD GAS O2 SATURATION 95.6 % (95-98); ARTERIAL BLOOD GAS BASE EXCESS -0.9 mmol/L (-2-2); ARTERIAL BLOOD GAS PO2 79.3 mmHg (80-100); ARTERIAL BLOOD GAS pH 7.389 (7.350-7.450)
[2021-06-28] MEDS: PHYTONADIONE 10 MG/1 ML AMP SQ SCH (18:40)
[2021-06-28] MEDS ORDERED: ALBUTEROL SO4 2.5/IPRATROPIUM 0.5 INH SOL 3 ML VIAL.NEB. NEB ONE (19:47)
[2021-06-28] MEDS ORDERED: ATORVASTATIN CA 20 MG TABLET (FP) PO SCH (22:00)
[2021-06-28] MEDS: CHLORHEXIDINE GLUCONATE 4% CLEANSER FOR DECOLONIZATION TP SCH (22:50)
[2021-06-28] MEDS: METOPROLOL TARTRATE 25 MG TABLET (FP) PO SCH (22:50)
[2021-06-28] MEDS: MUPIROCIN 2% TOPICAL OINTMENT FOR DECOLONIZATION NS SCH (22:50)
[2021-06-28] MEDS ORDERED: PT OWN MED DRAWER 7, Y5N ONE (22:55)
[2021-06-29] MEDS ORDERED: PIPERACILLIN/TAZOBACTAM 3.375 GM VIAL IVPB ONE ×3 (02:40→17:43)
[2021-06-29] MEDS ORDERED: DEXTROSE 5%-WATER - 50 ML IVPB ONE ×3 (02:40→17:43)
[2021-06-29] MEDS: PIPERACILLIN/TAZOB 3.375 GM 3.375 GM in DEXTROSE 5%-WATER - 50 ML IVPB SCH ×3 (02:50→17:47)
[2021-06-29] MEDS: BACLOFEN 10 MG TABLET (FP) PO SCH ×3 (06:31→22:27)
[2021-06-29] MEDS: METOPROLOL TARTRATE 25 MG TABLET (FP) PO SCH ×3 (06:31→22:27)
[2021-06-29] MEDS ORDERED: SODIUM CHLORIDE 500 ML IV STA (06:45)
[2021-06-29 07:18] LABS: BASO % 0.3 % (0-2.0); EOS % 0.1 % (0-4.5); HEMATOCRIT 29.1 % (32.4-45.2); HEMOGLOBIN 9.4 GM/dL (10.7-15.3); LYMPH % 6.3 % (8-40); MCH 25.7 pg (25.7-33.7); MCHC 32.2 g/dl (32.0-36.0); MEAN CELL VOLUME 79.8 fl (80-96); MONO % 4.3 % (3.8-10.2); PLATELET COUNT 505 10^3/uL (134-434); RBC 3.64 M/mm3 (3.60-5.2); WHITE BLOOD COUNT 13.1 K/mm3 (4.0-10.0)
[2021-06-29 07:44] LABS: CALCIUM 8.1 mg/dL (8.5-10.1)
[2021-06-29 07:45] LABS: ALBUMIN 1.5 g/dl (3.4-5.0); BLOOD UREA NITROGEN 18.6 mg/dL (7-18)
[2021-06-29 07:48] LABS: CREATININE 0.6 mg/dL (0.55-1.3)
[2021-06-29 07:49] LABS: BILIRUBIN,TOTAL 0.3 mg/dL (0.2-1)
[2021-06-29 07:50] LABS: TOT PROT 4.1 g/dl (6.4-8.2)
[2021-06-29] MEDS: MUPIROCIN 2% TOPICAL OINTMENT FOR DECOLONIZATION NS SCH ×2 (09:55→22:27)
[2021-06-29] MEDS: PHYTONADIONE 10 MG/1 ML AMP SQ SCH (09:55)
[2021-06-29] MEDS: BUDESONIDE/FORMETEROL FUMARATE 160/4.5 mcg INHALER IH SCH ×2 (09:55→22:27)
[2021-06-29] MEDS ORDERED: ACETAMINOPHEN 1000 MG/100 ML VIAL (NON FORMULARY) IVPB PRN (11:02)
[2021-06-29] MEDS ORDERED: PT OWN MED DRAWER 7, Y5N ONE (12:21)
[2021-06-29] MEDS: DEXTROSE 5%-NORMAL SALINE 1,000 ML IV SCH (12:21)
[2021-06-29] MEDS: COLLAGENASE CLOSTRIDIUM HIST. 30 GRAMS TUBE TP SCH (14:00)
[2021-06-29] MEDS ORDERED: SODIUM CHLORIDE 0.9% 500 ML INFUS.BAG IV ONE (15:04)
[2021-06-29] MEDS ORDERED: SODIUM CHLORIDE 0.9% 1000 ML INFUS.BAG IV ONE (15:09)
[2021-06-29] MEDS: CHLORHEXIDINE GLUCONATE 4% CLEANSER FOR DECOLONIZATION TP SCH (22:27)
[2021-06-30] MEDS ORDERED: DEXTROSE 5%-WATER - 50 ML IVPB ONE ×3 (02:45→17:11)
[2021-06-30] MEDS ORDERED: PIPERACILLIN/TAZOBACTAM 3.375 GM VIAL IVPB ONE ×3 (02:45→17:10)
[2021-06-30] MEDS: PIPERACILLIN/TAZOB 3.375 GM 3.375 GM in DEXTROSE 5%-WATER - 50 ML IVPB SCH ×3 (02:49→17:11)
[2021-06-30] MEDS ORDERED: SODIUM CHLORIDE 500 ML IV STA (06:36)
[2021-06-30] MEDS: BACLOFEN 10 MG TABLET (FP) PO SCH ×3 (06:39→21:34)
[2021-06-30] MEDS: METOPROLOL TARTRATE 25 MG TABLET (FP) PO SCH ×3 (06:40→21:34)
[2021-06-30 07:33] LABS: INR 1.08 (0.83-1.09); PROTHROMBIN TIME (PATIENT) 13.2 SEC (9.7-13.0)
[2021-06-30 07:36] LABS: ACTIVATED PTT 31.2 SECONDS (25.2-36.5)
[2021-06-30 07:38] LABS: BASO % 0.2 % (0-2.0); HEMATOCRIT 26.3 % (32.4-45.2); HEMOGLOBIN 8.7 GM/dL (10.7-15.3); LYMPH % 7.8 % (8-40); MCH 26.7 pg (25.7-33.7); MEAN CELL VOLUME 80.8 fl (80-96); MEAN PLT VOLUME 8.5 fl (7.5-11.1); MONO % 4.4 % (3.8-10.2); NEUT % 87.6 % (42.8-82.8); PLATELET COUNT 424 10^3/uL (134-434); RBC 3.25 M/mm3 (3.60-5.2); RDW 20.7 % (11.6-15.6); WHITE BLOOD COUNT 10.9 K/mm3 (4.0-10.0)
[2021-06-30 07:54] LABS: CALCIUM 7.6 mg/dL (8.5-10.1)
[2021-06-30 07:55] LABS: ALBUMIN 1.3 g/dl (3.4-5.0); BLOOD UREA NITROGEN 18.9 mg/dL (7-18); MAGNESIUM 1.8 mg/dL (1.8-2.4)
[2021-06-30 07:58] LABS: CREATININE 0.6 mg/dL (0.55-1.3); PHOSPHOROUS 2.3 mg/dL (2.5-4.9)
[2021-06-30 07:59] LABS: BILIRUBIN,TOTAL 0.2 mg/dL (0.2-1); TOT PROT 3.8 g/dl (6.4-8.2)
[2021-06-30] MEDS: PHYTONADIONE 10 MG/1 ML AMP SQ SCH (10:29)
[2021-06-30] MEDS: MUPIROCIN 2% TOPICAL OINTMENT FOR DECOLONIZATION NS SCH ×2 (10:32→21:34)
[2021-06-30] MEDS: BUDESONIDE/FORMETEROL FUMARATE 160/4.5 mcg INHALER IH SCH ×2 (10:33→21:34)
[2021-06-30] MEDS: COLLAGENASE CLOSTRIDIUM HIST. 30 GRAMS TUBE TP SCH (17:11)
[2021-06-30] MEDS: DEXTROSE 5%-NORMAL SALINE 1,000 ML IV SCH (17:11)
[2021-06-30] MEDS ORDERED: POTASSIUM PHOSPHATE 15 MM in SODIUM CHLORIDE 250 ML IVPB ONE (17:57)
[2021-06-30] MEDS: CHLORHEXIDINE GLUCONATE 4% CLEANSER FOR DECOLONIZATION TP SCH (21:34)
[2021-07-01] MEDS ORDERED: DEXTROSE 5%-WATER - 50 ML IVPB ONE ×3 (01:14→17:02)
[2021-07-01] MEDS ORDERED: PIPERACILLIN/TAZOBACTAM 3.375 GM VIAL IVPB ONE ×3 (01:14→17:02)
[2021-07-01] MEDS: PIPERACILLIN/TAZOB 3.375 GM 3.375 GM in DEXTROSE 5%-WATER - 50 ML IVPB SCH ×3 (01:35→17:10)
[2021-07-01 06:39] LABS: HEMATOCRIT 26.2 % (32.4-45.2); HEMOGLOBIN 8.6 GM/dL (10.7-15.3); MCH 26.8 pg (25.7-33.7); MCHC 32.9 g/dl (32.0-36.0); MEAN CELL VOLUME 81.5 fl (80-96); MEAN PLT VOLUME 8.4 fl (7.5-11.1); PLATELET COUNT 421 10^3/uL (134-434); RBC 3.22 M/mm3 (3.60-5.2); RDW 21.4 % (11.6-15.6); WHITE BLOOD COUNT 9.9 K/mm3 (4.0-10.0)
[2021-07-01 07:00] LABS: CHLORIDE 115 mmol/L (98-107); SODIUM 145 mmol/L (136-145)
[2021-07-01] MEDS: DEXTROSE 5%-NORMAL SALINE 1,000 ML IV SCH ×2 (07:01→13:33)
[2021-07-01 07:02] LABS: CALCIUM 7.3 mg/dL (8.5-10.1)
[2021-07-01 07:03] LABS: BLOOD UREA NITROGEN 15.6 mg/dL (7-18); CO2 24 mmol/L (21-32); GLUCOSE,RANDOM 112 mg/dL (74-106); MAGNESIUM 1.6 mg/dL (1.8-2.4)
[2021-07-01 07:06] LABS: CREATININE 0.6 mg/dL (0.55-1.3); PHOSPHOROUS 3.3 mg/dL (2.5-4.9)
[2021-07-01] MEDS: BACLOFEN 10 MG TABLET (FP) PO SCH ×3 (07:11→21:45)
[2021-07-01] MEDS: METOPROLOL TARTRATE 25 MG TABLET (FP) PO SCH ×3 (07:11→21:45)
[2021-07-01 07:22] LABS: ANION GAP 6 MMOL/L (8-16)
[2021-07-01] MEDS ORDERED: POTASSIUM CHLORIDE 20 MEQ PREMIX IVPB 100 ML IVPB ONE (08:32)
[2021-07-01] MEDS: PHYTONADIONE 10 MG/1 ML AMP SQ SCH (09:00)
[2021-07-01] MEDS: BUDESONIDE/FORMETEROL FUMARATE 160/4.5 mcg INHALER IH SCH ×2 (09:01→21:45)
[2021-07-01] MEDS: MUPIROCIN 2% TOPICAL OINTMENT FOR DECOLONIZATION NS SCH ×2 (09:02→21:45)
[2021-07-01] MEDS: COLLAGENASE CLOSTRIDIUM HIST. 30 GRAMS TUBE TP SCH (10:08)
[2021-07-01] MEDS ORDERED: DEXTROSE 5%-NORMAL SALINE 1,000 ML IV SCH (20:18)
[2021-07-01] MEDS ORDERED: ACETAMINOPHEN 1000 MG/100 ML VIAL (NON FORMULARY) IVPB PRN (20:18)
[2021-07-01] MEDS ORDERED: METOPROLOL TARTRATE 5 MG/5 ML VIAL IVPUSH PRN (20:18)
[2021-07-01] MEDS ORDERED: ATORVASTATIN CA 40 MG TABLET (FP) PO SCH ×2 (22:00)
[2021-07-01] MEDS ORDERED: CHLORHEXIDINE GLUCONATE 4% CLEANSER FOR DECOLONIZATION TP SCH (22:00)
[2021-07-01] MEDS ORDERED: METOPROLOL TARTRATE 25 MG TABLET (FP) PO SCH (22:00)
[2021-07-01] MEDS ORDERED: MAGNESIUM SULF 50% (8.12 MEQ/2 ML-1 GM VIAL) IVPB ONE (23:03)
[2021-07-01] MEDS ORDERED: MAGNESIUM SULF 50% (8.12 MEQ/2 ML-1 GM VIAL) ONE (23:17)
[2021-07-02] MEDS ORDERED: DEXTROSE 5%-WATER - 50 ML IVPB ONE ×3 (01:50→17:18)
[2021-07-02] MEDS ORDERED: PIPERACILLIN/TAZOBACTAM 3.375 GM VIAL IVPB ONE ×3 (01:50→17:18)
[2021-07-02] MEDS: PIPERACILLIN/TAZOB 3.375 GM 3.375 GM in DEXTROSE 5%-WATER - 50 ML IVPB SCH ×3 (02:19→17:49)
[2021-07-02] MEDS: BACLOFEN 10 MG TABLET (FP) PO SCH ×3 (07:04→21:21)
[2021-07-02 08:40] LABS: BASO % 0.6 % (0-2.0); EOS % 0.5 % (0-4.5); HEMATOCRIT 27.2 % (32.4-45.2); HEMOGLOBIN 8.9 GM/dL (10.7-15.3); LYMPH % 10.8 % (8-40); MCH 26.9 pg (25.7-33.7); MCHC 32.8 g/dl (32.0-36.0); MEAN PLT VOLUME 8.7 fl (7.5-11.1); MONO % 4.2 % (3.8-10.2); NEUT % 83.9 % (42.8-82.8); PLATELET COUNT 435 10^3/uL (134-434); RBC 3.32 M/mm3 (3.60-5.2); RDW 22.3 % (11.6-15.6); WHITE BLOOD COUNT 10.9 K/mm3 (4.0-10.0)
[2021-07-02 08:42] LABS: CHLORIDE 118 mmol/L (98-107); SODIUM 147 mmol/L (136-145)
[2021-07-02 08:45] LABS: ALBUMIN 1.2 g/dl (3.4-5.0); BLOOD UREA NITROGEN 15.4 mg/dL (7-18); CALCIUM 7.5 mg/dL (8.5-10.1); CO2 22 mmol/L (21-32); GLUCOSE,RANDOM 124 mg/dL (74-106)
[2021-07-02 08:48] LABS: CREATININE 0.7 mg/dL (0.55-1.3); SGPT/ALT 26 U/L (13-61)
[2021-07-02 08:49] LABS: SGOT/AST 23 U/L (15-37)
[2021-07-02 08:50] LABS: BILIRUBIN,TOTAL 0.3 mg/dL (0.2-1); TOT PROT 3.6 g/dl (6.4-8.2)
[2021-07-02 09:02] LABS: ALK PHOS 253 U/L (45-117); ANION GAP 8 MMOL/L (8-16)
[2021-07-02 09:35] LABS: ANISOCYTOSIS 2+; MACROCYTOSIS 1+; PLATELET ESTIMATE NORMAL
[2021-07-02] MEDS ORDERED: COLLAGENASE CLOSTRIDIUM HIST. 30 GRAMS TUBE TP SCH (10:00)
[2021-07-02] MEDS: METOPROLOL TARTRATE 25 MG TABLET (FP) PO SCH ×2 (10:32→21:22)
[2021-07-02] MEDS ORDERED: PT OWN MED DRAWER 7, Y5N ONE ×3 (11:04→21:04)
[2021-07-02] MEDS: POTASSIUM CHLORIDE 20 MEQ PREMIX IVPB 100 ML IVPB SCH ×3 (11:06→16:37)
[2021-07-02] MEDS: D5-1/2NS+20 MEQ KCL - 20 MEQ/1,000 ML INFUS.BAG IV SCH (11:09)
[2021-07-02] MEDS ORDERED: KCL 10 MEQ IVPB 10 MEQ/100 ML INFUS.BAG IVPB SCH (11:45)
[2021-07-02] MEDS: MUPIROCIN 2% TOPICAL OINTMENT FOR DECOLONIZATION NS SCH ×2 (12:26→21:21)
[2021-07-02] MEDS ORDERED: MAGNESIUM 2GM/50ML STERILE WATER IVPB IVPB ONE (13:00)
[2021-07-02] MEDS ORDERED: AMINO ACIDS 4.25%/D5W 1,000 ML IV SCH (14:00)
[2021-07-02] MEDS ORDERED: SODIUM CHLORIDE 0.9% 500 ML INFUS.BAG IV ONE ×2 (17:46→21:16)
[2021-07-02] MEDS: AMINO ACIDS/PROTEIN HYDROLYS 30 ML LIQUID.PKT PO SCH (17:49)
[2021-07-02] MEDS: BUDESONIDE/FORMETEROL FUMARATE 160/4.5 mcg INHALER IH SCH ×2 (17:49→21:22)
[2021-07-02] MEDS ORDERED: ACETAMINOPHEN 1000 MG/100 ML VIAL (NON FORMULARY) IVPB PRN (18:11)
[2021-07-02] MEDS ORDERED: METOPROLOL TARTRATE 5 MG/5 ML VIAL IVPUSH PRN (18:11)
[2021-07-02] MEDS ORDERED: SODIUM CHLORIDE 500 ML IV STA (19:18)
[2021-07-02] MEDS: ATORVASTATIN CA 40 MG TABLET (FP) PO SCH (21:22)
[2021-07-02] MEDS: CHLORHEXIDINE GLUCONATE 4% CLEANSER FOR DECOLONIZATION TP SCH (21:22)
[2021-07-02] MEDS: APIXABAN 5 MG TABLET PO SCH (21:25)
[2021-07-03] MEDS ORDERED: DEXTROSE 5%-WATER - 50 ML IVPB ONE ×3 (00:15→17:42)
[2021-07-03] MEDS ORDERED: PIPERACILLIN/TAZOBACTAM 3.375 GM VIAL IVPB ONE ×3 (00:15→17:42)
[2021-07-03] MEDS ORDERED: SODIUM CHLORIDE 500 ML IV STA ×3 (01:49→23:51)
[2021-07-03] MEDS: PIPERACILLIN/TAZOB 3.375 GM 3.375 GM in DEXTROSE 5%-WATER - 50 ML IVPB SCH ×3 (02:20→18:18)
[2021-07-03] MEDS ORDERED: NOREPINEPHRINE D5W PREMIX 16,000 MCG/500 ML BAG IVPB SCH (03:30)
[2021-07-03 06:24] LABS: HEMATOCRIT 29.2 % (32.4-45.2); HEMOGLOBIN 9.4 GM/dL (10.7-15.3); MCH 26.5 pg (25.7-33.7); MCHC 32.2 g/dl (32.0-36.0); MEAN CELL VOLUME 82.4 fl (80-96); MEAN PLT VOLUME 8.9 fl (7.5-11.1); PLATELET COUNT 499 10^3/uL (134-434); RBC 3.55 M/mm3 (3.60-5.2); RDW 22.2 % (11.6-15.6); WHITE BLOOD COUNT 25.1 K/mm3 (4.0-10.0)
[2021-07-03 06:35] LABS: CHLORIDE 123 mmol/L (98-107); SODIUM 149 mmol/L (136-145)
[2021-07-03 06:38] LABS: ALBUMIN 1.1 g/dl (3.4-5.0); BLOOD UREA NITROGEN 14.2 mg/dL (7-18); CO2 19 mmol/L (21-32); GLUCOSE,RANDOM 138 mg/dL (74-106); MAGNESIUM 2.4 mg/dL (1.8-2.4)
[2021-07-03 06:40] LABS: SGPT/ALT 26 U/L (13-61)
[2021-07-03 06:41] LABS: CREATININE 0.6 mg/dL (0.55-1.3); PHOSPHOROUS 2.4 mg/dL (2.5-4.9); SGOT/AST 22 U/L (15-37)
[2021-07-03 06:42] LABS: BILIRUBIN,TOTAL 0.2 mg/dL (0.2-1); TOT PROT 3.5 g/dl (6.4-8.2)
[2021-07-03 06:43] LABS: ALK PHOS 258 U/L (45-117)
[2021-07-03 06:46] LABS: ANION GAP 7 MMOL/L (8-16); CALCIUM 6.9 mg/dL (8.5-10.1)
[2021-07-03] MEDS: BACLOFEN 10 MG TABLET (FP) PO SCH ×2 (06:56→14:03)
[2021-07-03] MEDS ORDERED: KCL 10 MEQ IVPB 10 MEQ/100 ML INFUS.BAG IVPB SCH (08:30)
[2021-07-03] MEDS ORDERED: POTASSIUM PHOSPHATE 30 MM in SODIUM CHLORIDE 250 ML IVPB ONE (09:30)
[2021-07-03] MEDS: METOPROLOL TARTRATE 25 MG TABLET (FP) PO SCH ×2 (10:00→21:28)
[2021-07-03] MEDS: BUDESONIDE/FORMETEROL FUMARATE 160/4.5 mcg INHALER IH SCH ×2 (10:00→21:28)
[2021-07-03] MEDS: COLLAGENASE CLOSTRIDIUM HIST. 30 GRAMS TUBE TP SCH (10:00)
[2021-07-03] MEDS: POTASSIUM CHLORIDE 20 MEQ PREMIX IVPB 100 ML IVPB SCH ×3 (10:00→14:02)
[2021-07-03 10:38] LABS: ANISOCYTOSIS 1+; MACROCYTOSIS 0; PLATELET ESTIMATE INCREASED
[2021-07-03] MEDS ORDERED: PHENYLEPHRINE NS PREMIX 25,000 MCG/250 ML BAG CVP SCH ×2 (11:15→12:00)
[2021-07-03] MEDS ORDERED: VASOPRESSIN 20 UNITS/ML VIAL IV ONE (11:48)
[2021-07-03] MEDS ORDERED: METOPROLOL TARTRATE 5 MG/5 ML VIAL IVPUSH PRN (12:07)
[2021-07-03] MEDS ORDERED: AMIODARONE HCL 150 MG/3 ML VIAL IVPUSH ONE (12:35)
[2021-07-03] MEDS ORDERED: AMIODARONE IN DEXTROSE,ISO-OSM 150 MG/100 ML BAG ONE (12:36)
[2021-07-03] MEDS ORDERED: AMIODARONE IN DEXTROSE,ISO-OSM 150 MG/100 ML BAG IVPB ONE (12:47)
[2021-07-03] MEDS ORDERED: AMIODARONE IN DEXTROSE,ISO-OSM 360 MG/200 ML BAG IVPB ONE (12:56)
[2021-07-03] MEDS: MUPIROCIN 2% TOPICAL OINTMENT FOR DECOLONIZATION NS SCH ×2 (13:15→21:27)
[2021-07-03] MEDS: VASOPRESSIN 40 UNITS in SODIUM CHLORIDE 98 ML IVPB SCH (13:17)
[2021-07-03] MEDS: D5-1/2NS+20 MEQ KCL - 20 MEQ/1,000 ML INFUS.BAG IV SCH (13:17)
[2021-07-03] MEDS: PHENYLEPHRINE NS PREMIX 50,000 MCG/500 ML BAG CVP SCH (13:17)
[2021-07-03] MEDS: AMINO ACIDS/PROTEIN HYDROLYS 30 ML LIQUID.PKT PO SCH ×2 (13:59→18:17)
[2021-07-03] MEDS: APIXABAN 5 MG TABLET PO SCH ×2 (14:00→21:28)
[2021-07-03] MEDS: MIDODRINE HCL 2.5 MG TABLET PO SCH ×3 (14:01→18:18)
[2021-07-03] MEDS: HYDROCORTISONE SOD SUCCINATE 100 MG/2 ML VIAL IVPB SCH ×2 (14:02→20:13)
[2021-07-03] MEDS: FLUDROCORTISONE ACETATE 0.1 MG TABLET (FP) PO SCH (14:02)
[2021-07-03] MEDS ORDERED: NOREPINEPHRINE BITARTRATE 4 MG/4 ML ML IV ONE (14:19)
[2021-07-03] MEDS: NOREPINEPHRINE BITARTRATE 8,000 MCG/500 ML BAG IVPB SCH (14:45)
[2021-07-03 14:57] LABS: BLOOD UREA NITROGEN 14.3 mg/dL (7-18); MAGNESIUM 2.4 mg/dL (1.8-2.4)
[2021-07-03 15:00] LABS: CREATININE 0.9 mg/dL (0.55-1.3)
[2021-07-03] MEDS ORDERED: VANCOMYCIN 1 GM in D5W (PRE-DOCKED) 1,000 MG/250 ML IVPB ONE (15:00)
[2021-07-03] MEDS ORDERED: FUROSEMIDE 40 MG/4 ML INJECTABLE VIAL IVPUSH ONE (15:00)
[2021-07-03] MEDS ORDERED: SODIUM BICARBONATE 8.4% 50 MEQ/50 ML DISP.SYRIN IVPUSH ONE (15:11)
[2021-07-03 15:44] LABS: ARTERIAL BLD GAS O2 SATURATION 95.8 % (95-98); ARTERIAL BLOOD GAS BASE EXCESS -18.3 mmol/L (-2-2); ARTERIAL BLOOD GAS PO2 105.2 mmHg (80-100)
[2021-07-03] MEDS ORDERED: RAPID SEQUENCE INTUBATION KIT NR ONE (17:05)
[2021-07-03] MEDS ORDERED: ROCURONIUM BROMIDE 50 MG/5 ML VIAL IV ONE (17:24)
[2021-07-03] MEDS ORDERED: ETOMIDATE 20 MG/10 ML AMPUL IVPUSH ONE (17:24)
[2021-07-03] MEDS ORDERED: PHENYLEPHRINE HCL 10 MG/1 ML SINGLE DOSE VIAL IVPB ONE (17:31)
[2021-07-03 18:34] LABS: CHLORIDE 123 mmol/L (98-107); SODIUM 146 mmol/L (136-145)
[2021-07-03 18:36] LABS: BLOOD UREA NITROGEN 13.8 mg/dL (7-18); CO2 10 mmol/L (21-32); GLUCOSE,RANDOM 263 mg/dL (74-106)
[2021-07-03 18:50] LABS: ANION GAP 13 MMOL/L (8-16); CALCIUM 6.9 mg/dL (8.5-10.1)
[2021-07-03] MEDS ORDERED: INSULIN REGULAR HUMAN 100 UNITS/ML *VIAL IVPUSH ONE (19:10)
[2021-07-03] MEDS ORDERED: CALCIUM GLUCONATE 10% - 1,000 MG/10 ML VIAL IVPUSH ONE (19:10)
[2021-07-03] MEDS ORDERED: DEXTROSE 50%-WATER - 25 GM/50 ML VIAL IVPUSH ONE (19:13)
[2021-07-03] MEDS ORDERED: DEXTROSE 50%-WATER 25 GM/50 ML DISP.SYRIN ONE (19:33)
[2021-07-03] MEDS: AMIODARONE IN DEXTROSE,ISO-OSM 360 MG/200 ML BAG IVPB SCH (20:00)
[2021-07-03] MEDS: MIDAZOLAM HCL 2 MG/2 ML SINGLE DOSE VIAL IVPUSH PRN (20:42)
[2021-07-03] MEDS: SODIUM BICARBONATE 8.4% - 150 MEQ in DEXTROSE 5%-WATER - 950 ML IVPB SCH (21:14)
[2021-07-03] MEDS: CHLORHEXIDINE GLUCONATE 4% CLEANSER FOR DECOLONIZATION TP SCH (21:28)
[2021-07-03] MEDS: ATORVASTATIN CA 40 MG TABLET (FP) PO SCH (21:28)
[2021-07-03] MEDS ORDERED: SODIUM CHLORIDE 0.9% 500 ML INFUS.BAG IV ONE (23:03)
[2021-07-03 23:36] LABS: CHLORIDE 121 mmol/L (98-107); SODIUM 145 mmol/L (136-145)
[2021-07-03 23:39] LABS: ANION GAP 15 MMOL/L (8-16); CO2 9 mmol/L (21-32)
[2021-07-03 23:40] LABS: BLOOD UREA NITROGEN 13.4 mg/dL (7-18); GLUCOSE,RANDOM 359 mg/dL (74-106)
[2021-07-03 23:48] LABS: CALCIUM 6.6 mg/dL (8.5-10.1); LACTIC ACID 9.3 mmol/L (0.4-2.0)
[2021-07-04] MEDS: MIDAZOLAM HCL 2 MG/2 ML SINGLE DOSE VIAL IVPUSH PRN ×2 (00:11→03:27)
[2021-07-04] MEDS ORDERED: DEXTROSE 5%-WATER - 50 ML IVPB ONE ×5 (00:55→23:49)
[2021-07-04] MEDS ORDERED: PIPERACILLIN/TAZOBACTAM 3.375 GM VIAL IVPB ONE ×5 (00:55→23:49)
[2021-07-04] MEDS: PIPERACILLIN/TAZOB 3.375 GM 3.375 GM in DEXTROSE 5%-WATER - 50 ML IVPB SCH ×3 (01:04→17:09)
[2021-07-04] MEDS: HYDROCORTISONE SOD SUCCINATE 100 MG/2 ML VIAL IVPB SCH ×3 (03:42→22:32)
[2021-07-04 07:09] LABS: HEMATOCRIT 25.9 % (32.4-45.2); HEMOGLOBIN 7.8 GM/dL (10.7-15.3); MCH 26.4 pg (25.7-33.7); MCHC 30.2 g/dl (32.0-36.0); MEAN CELL VOLUME 87.6 fl (80-96); PLATELET COUNT 298 10^3/uL (134-434); RBC 2.96 M/mm3 (3.60-5.2); RDW 23.6 % (11.6-15.6); WHITE BLOOD COUNT 20.4 K/mm3 (4.0-10.0)
[2021-07-04] MEDS: SODIUM BICARBONATE 8.4% - 150 MEQ in DEXTROSE 5%-WATER - 950 ML IVPB SCH ×3 (07:16→21:12)
[2021-07-04 07:32] LABS: CHLORIDE 116 mmol/L (98-107); SODIUM 141 mmol/L (136-145)
[2021-07-04 07:36] LABS: ANION GAP 14 MMOL/L (8-16); BLOOD UREA NITROGEN 12.7 mg/dL (7-18); CO2 11 mmol/L (21-32); GLUCOSE,RANDOM 383 mg/dL (74-106)
[2021-07-04 07:39] LABS: BILIRUBIN,TOTAL 0.4 mg/dL (0.2-1); PHOSPHOROUS 5.9 mg/dL (2.5-4.9); SGOT/AST 134 U/L (15-37); SGPT/ALT 42 U/L (13-61)
[2021-07-04 07:40] LABS: TOT PROT 2.5 g/dl (6.4-8.2)
[2021-07-04 07:41] LABS: ALK PHOS 253 U/L (45-117)
[2021-07-04 07:43] LABS: LACTIC ACID 8.1 mmol/L (0.4-2.0)
[2021-07-04 07:44] LABS: ALBUMIN 0.8 g/dl (3.4-5.0)
[2021-07-04] MEDS ORDERED: PT OWN MED DRAWER 7, Y5N ONE ×3 (07:53→15:15)
[2021-07-04] MEDS: AMINO ACIDS/PROTEIN HYDROLYS 30 ML LIQUID.PKT PO SCH ×3 (08:32→16:49)
[2021-07-04] MEDS: VASOPRESSIN 40 UNITS in SODIUM CHLORIDE 98 ML IVPB SCH ×3 (08:53→19:20)
[2021-07-04 09:05] LABS: ANISOCYTOSIS 0; MACROCYTOSIS 0; OVALOCYTE 1+; PLATELET ESTIMATE NORMAL
[2021-07-04] MEDS: APIXABAN 5 MG TABLET PO SCH ×2 (09:35→21:21)
[2021-07-04] MEDS: FLUDROCORTISONE ACETATE 0.1 MG TABLET (FP) PO SCH (09:35)
[2021-07-04] MEDS: BUDESONIDE/FORMETEROL FUMARATE 160/4.5 mcg INHALER IH SCH ×2 (09:36→21:13)
[2021-07-04] MEDS: METOPROLOL TARTRATE 25 MG TABLET (FP) PO SCH (09:36)
[2021-07-04] MEDS: PHENYLEPHRINE NS PREMIX 50,000 MCG/500 ML BAG CVP SCH ×3 (09:36→19:20)
[2021-07-04] MEDS: MIDODRINE HCL 2.5 MG TABLET PO SCH ×4 (09:36→17:08)
[2021-07-04] MEDS ORDERED: DEXMEDETOMIDINE IN 0.9 % NACL 200 MCG/50 ML EACH IVPB SCH (09:45)
[2021-07-04] MEDS ORDERED: DEXMEDETOMIDINE IN 0.9 % NACL 400 MCG/100 ML VIAL IVPB SCH (09:59)
[2021-07-04] MEDS: COLLAGENASE CLOSTRIDIUM HIST. 30 GRAMS TUBE TP SCH (10:54)
[2021-07-04] MEDS: MUPIROCIN 2% TOPICAL OINTMENT FOR DECOLONIZATION NS SCH ×2 (10:54→22:32)
[2021-07-04] MEDS: PANTOPRAZOLE SODIUM 40 MG VIAL IVPUSH SCH ×2 (11:25→22:33)
[2021-07-04 11:49] LABS: ARTERIAL BLD GAS O2 SATURATION 99.3 % (95-98); ARTERIAL BLOOD GAS BASE EXCESS -19.2 mmol/L (-2-2)
[2021-07-04 11:53] LABS: VENT MODE A/C; VENT RATE 16
[2021-07-04 11:54] LABS: ARTERIAL BLOOD GAS pH 7.152 (7.350-7.450)
[2021-07-04 11:56] LABS: EPI CELLS 27 /uL (0-25.1); HYALINE CASTS 2 /uL (0-3.1); URINE APPEARANCE TURBID; URINE BILIRUBIN NEGATIVE (NEGATIVE); URINE COLOR YELLOW; URINE GLUCOSE (UA) 1+ (NEGATIVE); URINE KETONE NEGATIVE (NEGATIVE); URINE LEUK ESTERASE 2+ (NEGATIVE); URINE NITRITE NEGATIVE (NEGATIVE); URINE PROTEIN 1+ (NEGATIVE); URINE UROBILINOGEN 0.2 mg/dL (0.2-1.0); URINE WBC 262 /uL (0-25.8)
[2021-07-04] MEDS ORDERED: SODIUM BICARBONATE 8.4% 50 MEQ/50 ML DISP.SYRIN IVPUSH ONE (12:50)
[2021-07-04 14:23] LABS: URINE BACTERIA 5.5 /uL (0-1359); URINE RBC 41.1 /uL (0-23.9)
[2021-07-04 14:24] LABS: YEAST PRESENT (NEGATIVE)
[2021-07-04] MEDS ORDERED: VANCOMYCIN 1 GM in D5W (PRE-DOCKED) 1,000 MG/250 ML IVPB SCH (14:30)
[2021-07-04] MEDS: NOREPINEPHRINE BITARTRATE 8,000 MCG/500 ML BAG IVPB SCH (16:49)
[2021-07-04] MEDS: AMIODARONE IN DEXTROSE,ISO-OSM 360 MG/200 ML BAG IVPB SCH (19:20)
[2021-07-04] MEDS: VANCOMYCIN 1 GM in D5W (PRE-DOCKED) 1,000 MG/250 ML IVPB SCH (19:21)
[2021-07-04] MEDS: ATORVASTATIN CA 40 MG TABLET (FP) PO SCH (21:21)
[2021-07-04] MEDS: CHLORHEXIDINE GLUCONATE 4% CLEANSER FOR DECOLONIZATION TP SCH (22:33)
[2021-07-05] MEDS: PIPERACILLIN/TAZOB 3.375 GM 3.375 GM in DEXTROSE 5%-WATER - 50 ML IVPB SCH (03:18)
[2021-07-05 03:29] VITALS: BP 42/23; PULSE 42; TEMP 91
== END 2021-07-05 02:00 | disposition expired | DRG 871 ==
LOC: JER 10:42 → JERBED 14:06 → J4S 18:36 → J4W 06-21 20:47 → JICU 06-28 14:54
PROVIDERS: ADMIT Internal Medicine; ATTEND Internal Medicine
PROC: 05HM33Z Insertion of Infusion Device into Right Internal Jugular Vein, Percutaneous Approach (ICD-10-PCS; principal; 2021-06-28)
PROC: B543ZZA Ultrasonography of Right Jugular Veins, Guidance (ICD-10-PCS; 2021-06-28)
PROC: 03HY32Z Insertion of Monitoring Device into Upper Artery, Percutaneous Approach (ICD-10-PCS; 2021-07-03)
PROC: 5A1945Z Respiratory Ventilation, 24-96 Consecutive Hours (ICD-10-PCS; 2021-07-03)
PROC: 0BH17EZ Insertion of Endotracheal Airway into Trachea, Via Natural or Artificial Opening (ICD-10-PCS; 2021-07-03)
DX: A41.9 Sepsis, unspecified organism (principal); L89.154 Pressure ulcer of sacral region, stage 4; I50.33 Acute on chronic diastolic (congestive) heart failure; G93.41 Metabolic encephalopathy; J96.01 Acute respiratory failure with hypoxia; R65.21 Severe sepsis with septic shock; G92 Toxic encephalopathy; N39.0 Urinary tract infection, site not specified; G82.20 Paraplegia, unspecified; E87.1 Hypo-osmolality and hyponatremia; N17.9 Acute kidney failure, unspecified; E87.2 Acidosis; E87.0 Hyperosmolality and hypernatremia; Z68.42 Body mass index [BMI] 45.0-49.9, adult; E78.00 Pure hypercholesterolemia, unspecified; I10 Essential (primary) hypertension; S24.102S Unspecified injury at T2-T6 level of thoracic spinal cord, sequela; I48.0 Paroxysmal atrial fibrillation; E66.01 Morbid (severe) obesity due to excess calories; F03.90 Unspecified dementia, unspecified severity, without behavioral disturbance, psychotic disturbance, mood disturbance, and anxiety; D64.9 Anemia, unspecified; D72.829 Elevated white blood cell count, unspecified; E87.6 Hypokalemia; E83.42 Hypomagnesemia; W19.XXXA Unspecified fall, initial encounter; Y93.9 Activity, unspecified; Y92.89 Other specified places as the place of occurrence of the external cause; Y99.9 Unspecified external cause status; E78.5 Hyperlipidemia, unspecified; I95.9 Hypotension, unspecified; E87.70 Fluid overload, unspecified; I46.9 Cardiac arrest, cause unspecified; J44.9 Chronic obstructive pulmonary disease, unspecified
CPT/HCPCS: 31500; 36415; 36600; 70450-TC; 71045-TC-FY; 80048; 80053; 80061; 81003; 82550; 82607; 82746; 82803; 82962; 83605; 83735; 83880; 84100; 84443; 84484; 85025; 85027; 85379; 85384; 85610; 85730; 86780; 86850; 86900; 86901; 87040; 87070; 87077; 87086; 87186; 87205; 87804; 93005; 93010; 94002; 94640; 99285-25; C9803; J0131; J0282; J0475; U0003; U0005